=== PATIENT | female | born 1985 ===

== ENCOUNTER 2020-05-16 20:10 | Inpatient (IN) | payer OTHER ==
[2020-05-16] MEDS ORDERED: SODIUM CHLORIDE 0.9% 500 ML INFUS.BAG IV ONE (20:53)
[2020-05-16 21:33] LABS: BASO % 0.3 % (0-2.0); HEMOGLOBIN 8.3 GM/dL (10.7-15.3); MCH 34.4 pg (25.7-33.7); MEAN CELL VOLUME 107.3 fl (80-96); MEAN PLT VOLUME 8.6 fl (7.5-11.1); MONO % 17.3 % (3.8-10.2); NEUT % 73.4 % (42.8-82.8); PLATELET COUNT 197 K/MM3 (134-434); RBC 2.42 M/mm3 (3.60-5.2); RDW 16.4 % (11.6-15.6); WHITE BLOOD COUNT 12.1 K/mm3 (4.0-10.0)
[2020-05-16 21:40] LABS: VENOUS BASE EXCESS -10.2 mmol/L (-2-2); VENOUS O2 SATURATION 66.9 % (70-80); VENOUS PCO2 34.3 mmHg (38-52); VENOUS PH 7.277 (7.310-7.410)
[2020-05-16] MEDS ORDERED: SODIUM CHLORIDE 1,000 ML IV STA ×2 (21:43→22:32)
[2020-05-16 21:55] LABS: INR 3.46 (0.83-1.09); PROTHROMBIN TIME (PATIENT) 41.1 SEC (9.7-13.0)
[2020-05-16 22:00] LABS: CHLORIDE 104 mmol/L (98-107); POTASSIUM 3.5 mmol/L (3.5-5.1); SODIUM 134 mmol/L (136-145)
[2020-05-16 22:03] LABS: ALBUMIN 1.5 g/dl (3.4-5.0); ANION GAP 13 MMOL/L (8-16); BLOOD UREA NITROGEN 44.9 mg/dL (7-18); CALCIUM 7.6 mg/dL (8.5-10.1); CO2 18 mmol/L (21-32); GLUCOSE,RANDOM 145 mg/dL (74-106)
[2020-05-16 22:06] LABS: CREATININE 1.1 mg/dL (0.55-1.3); SGOT/AST 15 U/L (15-37); SGPT/ALT 8 U/L (13-61)
[2020-05-16 22:08] LABS: BILIRUBIN,TOTAL 0.5 mg/dL (0.2-1); TOT PROT 5.5 g/dl (6.4-8.2)
[2020-05-16 22:09] LABS: ALK PHOS 93 U/L (45-117)
[2020-05-16 22:27] LABS: EPI CELLS >36 /uL (0-25.1); HYALINE CASTS 10 /uL (0-3.1); URINE APPEARANCE TURBID; URINE BACTERIA >9,000 /uL (0-1359); URINE BILIRUBIN 1+ (NEGATIVE); URINE COLOR DK YELLOW; URINE GLUCOSE (UA) NEGATIVE (NEGATIVE); URINE KETONE NEGATIVE (NEGATIVE); URINE LEUK ESTERASE 3+ (NEGATIVE); URINE NITRITE POSITIVE (NEGATIVE); URINE PROTEIN 1+ (NEGATIVE); URINE WBC 21675 /uL (0-25.8)
[2020-05-16] MEDS ORDERED: PIPERACILLIN/TAZOB 4.5 GM 4.5 GM in DEXTROSE 5%-WATER 100 ML IVPB ONE (22:31)
[2020-05-16] MEDS ORDERED: PIPERACILLIN/TAZOB 4.5 GM 4.5 GM/100 ML BAG IVPB ONE (22:35)
[2020-05-16 22:38] LABS: URINE RBC 307.9 /uL (0-23.9); YEAST NONE SEEN (NEGATIVE)
[2020-05-16 22:47] LABS: ANISOCYTOSIS 1+; MACROCYTOSIS 2+; PLATELET ESTIMATE NORMAL
[2020-05-17] MEDS: NOREPINEPHRINE D5W PREMIX 16,000 MCG/500 ML BAG IVPB SCH ×2 (01:05→10:30)
[2020-05-17 01:54] LABS: ERYTHROCYTE SEDIMENTATION RATE 117 mm/hr (0-20)
[2020-05-17] MEDS ORDERED: SODIUM CHLORIDE 1,000 ML IV SCH (03:00)
[2020-05-17] MEDS ORDERED: VANCOMYCIN/WATER BAGS 1,250 MG/250 ML BAG IVPB SCH ×2 (03:00→03:15)
[2020-05-17] MEDS ORDERED: VANCOMYCIN 500 MG VIAL (RESTRICTED TO ID ONLY) ONE (04:07)
[2020-05-17] MEDS ORDERED: VANCOMYCIN 1 GRAM (PRE-DOCKED) 1,000 MG/250 ML BAG IVPB ONE (04:08)
[2020-05-17] MEDS ORDERED: PIPERACILLIN/TAZOBACTAM 4.5 GM VIAL IVPB ONE ×2 (05:33→10:20)
[2020-05-17] MEDS ORDERED: DEXTROSE 5%-WATER 100 ML IVPB ONE ×2 (05:34→10:20)
[2020-05-17] MEDS: PIPERACILLIN/TAZOB 4.5 GM 4.5 GM in DEXTROSE 5%-WATER 100 ML IVPB SCH ×2 (05:42→11:34)
[2020-05-17] MEDS ORDERED: VASOPRESSIN 20 UNITS/ML VIAL IV ONE (05:51)
[2020-05-17] MEDS: VASOPRESSIN 40 UNITS in SODIUM CHLORIDE 98 ML IVPB SCH ×2 (06:02→14:07)
[2020-05-17 08:31] LABS: BASO % 0.4 % (0-2.0); HEMATOCRIT 26.9 % (32.4-45.2); HEMOGLOBIN 8.5 GM/dL (10.7-15.3); LYMPH % 11.7 % (8-40); MCH 34.2 pg (25.7-33.7); MCHC 31.4 g/dl (32.0-36.0); MEAN CELL VOLUME 108.8 fl (80-96); MEAN PLT VOLUME 8.4 fl (7.5-11.1); MONO % 15.8 % (3.8-10.2); NEUT % 72.1 % (42.8-82.8); PLATELET COUNT 198 K/MM3 (134-434); RBC 2.47 M/mm3 (3.60-5.2); RDW 16.3 % (11.6-15.6); WHITE BLOOD COUNT 16.7 K/mm3 (4.0-10.0)
[2020-05-17 08:56] LABS: ALBUMIN 1.3 g/dl (3.4-5.0)
[2020-05-17 08:57] LABS: MAGNESIUM 1.8 mg/dL (1.8-2.4)
[2020-05-17 09:00] LABS: CREATININE 0.8 mg/dL (0.55-1.3); PHOSPHOROUS 4.8 mg/dL (2.5-4.9)
[2020-05-17 09:01] LABS: BILIRUBIN,TOTAL 0.5 mg/dL (0.2-1); TOT PROT 4.9 g/dl (6.4-8.2)
[2020-05-17 09:24] LABS: CALCIUM 6.8 mg/dL (8.5-10.1); POTASSIUM 2.8 mmol/L (3.5-5.1)
[2020-05-17] MEDS ORDERED: PNEUMOC 13-VAL CONJ-DIP CRM/PF 0.5 ML DISP.SYRIN IM ONE (10:00)
[2020-05-17] MEDS ORDERED: ENOXAPARIN NA (PORCINE) 40 MG/0.4 ML DISP.SYRIN SQ SCH (10:00)
[2020-05-17] MEDS: levETIRAcetam 500 MG/5 ML INJECTION VIAL IVPB SCH ×2 (10:37→21:37)
[2020-05-17] MEDS: KCL 10 MEQ IVPB 10 MEQ/100 ML INFUS.BAG IVPB SCH ×2 (10:37→11:35)
[2020-05-17] MEDS: ENOXAPARIN NA (PORCINE) 60 MG/0.6 ML DISP.SYRIN SQ SCH ×2 (10:37→21:38)
[2020-05-17] MEDS: MUPIROCIN 2% TOPICAL OINTMENT FOR DECOLONIZATION NS SCH ×2 (10:37→21:37)
[2020-05-17 10:41] LABS: ANISOCYTOSIS 1+; MACROCYTOSIS 1+; PLATELET ESTIMATE NORMAL
[2020-05-17] MEDS ORDERED: PT OWN MED DRAWER 7, Y5N ONE ×2 (10:43→21:23)
[2020-05-17] MEDS: LEVOTHYROXINE SODIUM 100 MCG VIAL IVPUSH SCH (10:44)
[2020-05-17] MEDS ORDERED: PIPERACILLIN/TAZOBACTAM 3.375 GM VIAL IVPB ONE ×2 (13:03→16:03)
[2020-05-17] MEDS ORDERED: DEXTROSE 5%-WATER - 50 ML IVPB ONE ×2 (13:03→16:03)
[2020-05-17] MEDS: PIPERACILLIN/TAZOB 3.375 GM 3.375 GM in DEXTROSE 5%-WATER - 50 ML IVPB SCH ×2 (13:05→18:35)
[2020-05-17] MEDS: FLUDROCORTISONE ACETATE 0.1 MG TABLET (FP) PO SCH (13:41)
[2020-05-17] MEDS: HYDROCORTISONE SOD SUCCINATE 100 MG/2 ML VIAL IVPUSH SCH ×2 (13:43→21:38)
[2020-05-17] MEDS ORDERED: SODIUM CHLORIDE 0.45%/POT 20 MEQ/1,000 ML INFUS.BAG IV SCH (14:00)
[2020-05-17] MEDS ORDERED: LACTATED RINGERS SOLUTION 1,000 ML/1,000 ML INFUS.BAG IV SCH (14:00)
[2020-05-17] MEDS ORDERED: PNEUMOCOCCAL 23 VACCINE 0.5 ML VIAL IM ONE (15:00)
[2020-05-17 15:24] LABS: BLOOD UREA NITROGEN 25.4 mg/dL (7-18)
[2020-05-17 15:27] LABS: CREATININE 0.6 mg/dL (0.55-1.3)
[2020-05-17 15:39] LABS: POTASSIUM 2.9 mmol/L (3.5-5.1)
[2020-05-17] MEDS ORDERED: POTASSIUM CHLORIDE ORAL LIQUID 20 MEQ/15 ML PO ONE (15:40)
[2020-05-17] MEDS: VANCOMYCIN 1 GRAM (PRE-DOCKED) 1,000 MG/250 ML BAG IVPB SCH (17:16)
[2020-05-17 20:17] LABS: BLOOD UREA NITROGEN 21.6 mg/dL (7-18); CALCIUM 7.1 mg/dL (8.5-10.1)
[2020-05-17 20:20] LABS: CREATININE 0.5 mg/dL (0.55-1.3)
[2020-05-17] MEDS: CHLORHEXIDINE GLUCONATE 4% CLEANSER FOR DECOLONIZATION TP SCH (21:37)
[2020-05-18] MEDS: PIPERACILLIN/TAZOB 3.375 GM 3.375 GM in DEXTROSE 5%-WATER - 50 ML IVPB SCH ×3 (02:55→18:11)
[2020-05-18] MEDS ORDERED: DEXTROSE 5%-WATER - 50 ML IVPB ONE ×3 (03:15→17:59)
[2020-05-18] MEDS ORDERED: PIPERACILLIN/TAZOBACTAM 3.375 GM VIAL IVPB ONE ×3 (03:15→17:59)
[2020-05-18] MEDS: VANCOMYCIN 1 GRAM (PRE-DOCKED) 1,000 MG/250 ML BAG IVPB SCH ×2 (05:04→17:51)
[2020-05-18] MEDS: HYDROCORTISONE SOD SUCCINATE 100 MG/2 ML VIAL IVPUSH SCH ×3 (05:22→21:29)
[2020-05-18] MEDS: VASOPRESSIN 40 UNITS in SODIUM CHLORIDE 98 ML IVPB SCH ×2 (07:00)
[2020-05-18] MEDS: NOREPINEPHRINE D5W PREMIX 16,000 MCG/500 ML BAG IVPB SCH (07:00)
[2020-05-18 07:55] LABS: BASO % 0.1 % (0-2.0); HEMATOCRIT 26.8 % (32.4-45.2); HEMOGLOBIN 8.4 GM/dL (10.7-15.3); LYMPH % 7.7 % (8-40); MCH 34.1 pg (25.7-33.7); MCHC 31.2 g/dl (32.0-36.0); MEAN CELL VOLUME 109.3 fl (80-96); MONO % 3.7 % (3.8-10.2); NEUT % 88.5 % (42.8-82.8); PLATELET COUNT 207 K/MM3 (134-434); RBC 2.45 M/mm3 (3.60-5.2); RDW 16.3 % (11.6-15.6); WHITE BLOOD COUNT 16.4 K/mm3 (4.0-10.0)
[2020-05-18 08:23] LABS: POTASSIUM 3.6 mmol/L (3.5-5.1)
[2020-05-18 08:24] LABS: CALCIUM 7.2 mg/dL (8.5-10.1)
[2020-05-18 08:25] LABS: ALBUMIN 1.2 g/dl (3.4-5.0); BLOOD UREA NITROGEN 18.4 mg/dL (7-18); MAGNESIUM 1.7 mg/dL (1.8-2.4)
[2020-05-18 08:28] LABS: CREATININE 0.5 mg/dL (0.55-1.3)
[2020-05-18 08:29] LABS: PHOSPHOROUS 3.2 mg/dL (2.5-4.9)
[2020-05-18 08:30] LABS: BILIRUBIN,TOTAL 0.2 mg/dL (0.2-1); TOT PROT 4.5 g/dl (6.4-8.2)
[2020-05-18] MEDS ORDERED: PT OWN MED DRAWER 7, Y5N ONE ×3 (09:01→23:30)
[2020-05-18] MEDS: LEVOTHYROXINE SODIUM 100 MCG VIAL IVPUSH SCH (09:15)
[2020-05-18] MEDS: levETIRAcetam 500 MG/5 ML INJECTION VIAL IVPB SCH ×2 (09:17→21:28)
[2020-05-18] MEDS: FLUDROCORTISONE ACETATE 0.1 MG TABLET (FP) PO SCH (09:17)
[2020-05-18] MEDS: ENOXAPARIN NA (PORCINE) 60 MG/0.6 ML DISP.SYRIN SQ SCH ×2 (09:17→21:29)
[2020-05-18] MEDS ORDERED: ACETAMINOPHEN 1000 MG/100 ML VIAL (NON FORMULARY) IVPB ONE (10:15)
[2020-05-18] MEDS ORDERED: HYDROmorphone HCl 2 MG/ML VIAL IVPUSH PRN (10:27)
[2020-05-18] MEDS: COLLAGENASE CLOSTRIDIUM HIST. 30 GRAMS TUBE TP SCH (10:42)
[2020-05-18] MEDS: MUPIROCIN 2% TOPICAL OINTMENT FOR DECOLONIZATION NS SCH ×2 (10:50→21:28)
[2020-05-18] MEDS ORDERED: PNEUMOC 13-VAL CONJ-DIP CRM/PF 0.5 ML DISP.SYRIN IM ONE (11:30)
[2020-05-18] MEDS: LACTATED RINGERS SOLUTION 1,000 ML/1,000 ML INFUS.BAG IV SCH ×2 (12:12→20:00)
[2020-05-18] MEDS: VANCOMYCIN 250 MG/5 ML ORAL SOLUTION PO SCH ×2 (13:23→17:57)
[2020-05-18 13:36] LABS: ANISOCYTOSIS 1+; MACROCYTOSIS 1+; PLATELET ESTIMATE NORMAL
[2020-05-18] MEDS: CHLORHEXIDINE GLUCONATE 4% CLEANSER FOR DECOLONIZATION TP SCH (21:28)
[2020-05-18] MEDS ORDERED: QUEtiapine FUMARATE 100 MG TABLET (FP) PO ONE (23:38)
[2020-05-19] MEDS: VANCOMYCIN 250 MG/5 ML ORAL SOLUTION PO SCH ×4 (00:03→17:31)
[2020-05-19] MEDS ORDERED: PIPERACILLIN/TAZOBACTAM 3.375 GM VIAL IVPB ONE ×2 (01:29→10:23)
[2020-05-19] MEDS ORDERED: DEXTROSE 5%-WATER - 50 ML IVPB ONE ×2 (01:30→10:24)
[2020-05-19] MEDS: PIPERACILLIN/TAZOB 3.375 GM 3.375 GM in DEXTROSE 5%-WATER - 50 ML IVPB SCH ×2 (01:32→10:27)
[2020-05-19] MEDS ORDERED: PT OWN MED DRAWER 7, Y5N ONE ×5 (05:39→23:26)
[2020-05-19] MEDS: HYDROCORTISONE SOD SUCCINATE 100 MG/2 ML VIAL IVPUSH SCH ×3 (05:46→21:18)
[2020-05-19] MEDS: VASOPRESSIN 40 UNITS in SODIUM CHLORIDE 98 ML IVPB SCH (05:47)
[2020-05-19 07:25] LABS: HEMATOCRIT 24.7 % (32.4-45.2); HEMOGLOBIN 8.1 GM/dL (10.7-15.3); MCH 34.4 pg (25.7-33.7); MCHC 32.5 g/dl (32.0-36.0); MEAN CELL VOLUME 105.8 fl (80-96); MEAN PLT VOLUME 8.8 fl (7.5-11.1); PLATELET COUNT 130 K/MM3 (134-434); RBC 2.34 M/mm3 (3.60-5.2); RDW 15.6 % (11.6-15.6); WHITE BLOOD COUNT 13.2 K/mm3 (4.0-10.0)
[2020-05-19 07:52] LABS: CALCIUM 7.4 mg/dL (8.5-10.1)
[2020-05-19 07:53] LABS: BLOOD UREA NITROGEN 17.3 mg/dL (7-18); MAGNESIUM 1.6 mg/dL (1.8-2.4)
[2020-05-19 07:56] LABS: CREATININE 0.5 mg/dL (0.55-1.3); PHOSPHOROUS 2.6 mg/dL (2.5-4.9)
[2020-05-19 08:58] LABS: POTASSIUM 2.9 mmol/L (3.5-5.1)
[2020-05-19] MEDS: NOREPINEPHRINE D5W PREMIX 16,000 MCG/500 ML BAG IVPB SCH (10:20)
[2020-05-19] MEDS: FLUDROCORTISONE ACETATE 0.1 MG TABLET (FP) PO SCH (10:27)
[2020-05-19] MEDS: MUPIROCIN 2% TOPICAL OINTMENT FOR DECOLONIZATION NS SCH ×2 (10:27→21:17)
[2020-05-19] MEDS: levETIRAcetam 500 MG/5 ML INJECTION VIAL IVPB SCH (10:28)
[2020-05-19] MEDS: LEVOTHYROXINE SODIUM 100 MCG VIAL IVPUSH SCH (10:28)
[2020-05-19] MEDS: COLLAGENASE CLOSTRIDIUM HIST. 30 GRAMS TUBE TP SCH (10:28)
[2020-05-19] MEDS: ENOXAPARIN NA (PORCINE) 60 MG/0.6 ML DISP.SYRIN SQ SCH (10:28)
[2020-05-19] MEDS ORDERED: POTASSIUM PHOSPHATE 30 MM in DEXTROSE 5%-WATER - 250 ML IVPB ONE (10:30)
[2020-05-19] MEDS: QUEtiapine FUMARATE 100 MG TABLET (FP) PO SCH ×2 (14:17→21:22)
[2020-05-19] MEDS: LACTATED RINGERS SOLUTION 1,000 ML/1,000 ML INFUS.BAG IV SCH (14:18)
[2020-05-19] MEDS ORDERED: DEXTROSE 5%-WATER 100 ML IVPB ONE (17:29)
[2020-05-19] MEDS ORDERED: MEROPENEM 1 GM VIAL (RESTRICTED TO ID) IVPB ONE (17:29)
[2020-05-19] MEDS: MEROPENEM 1 GM in DEXTROSE 5%-WATER 100 ML IVPB SCH (17:30)
[2020-05-19] MEDS: CHLORHEXIDINE GLUCONATE 4% CLEANSER FOR DECOLONIZATION TP SCH (21:17)
[2020-05-19] MEDS: ATORVASTATIN CA 20 MG TABLET (FP) PO SCH (21:17)
[2020-05-19] MEDS: APIXABAN 5 MG TABLET PO SCH (21:17)
[2020-05-19] MEDS: levETIRAcetam 500 MG/5 ML ORAL SOLUTION (UNIT-DOSE CUPS) PO SCH (22:00)
[2020-05-19] MEDS: VALPROATE SODIUM 250 MG/5 ML UNIT DOSE CUP PO SCH (22:00)
[2020-05-20] MEDS ORDERED: MEROPENEM 1 GM VIAL (RESTRICTED TO ID) IVPB ONE ×3 (02:31→16:00)
[2020-05-20] MEDS ORDERED: DEXTROSE 5%-WATER 100 ML IVPB ONE ×3 (02:31→16:00)
[2020-05-20] MEDS: MEROPENEM 1 GM in DEXTROSE 5%-WATER 100 ML IVPB SCH ×3 (02:32→17:55)
[2020-05-20] MEDS: VASOPRESSIN 40 UNITS in SODIUM CHLORIDE 98 ML IVPB SCH (05:37)
[2020-05-20] MEDS: NOREPINEPHRINE D5W PREMIX 16,000 MCG/500 ML BAG IVPB SCH (05:37)
[2020-05-20] MEDS ORDERED: PT OWN MED DRAWER 7, Y5N ONE ×2 (05:40→10:04)
[2020-05-20] MEDS: HYDROCORTISONE SOD SUCCINATE 100 MG/2 ML VIAL IVPUSH SCH ×3 (05:46→21:41)
[2020-05-20] MEDS: VANCOMYCIN 250 MG/5 ML ORAL SOLUTION PO SCH ×5 (06:45→23:00)
[2020-05-20] MEDS: LEVOTHYROXINE NA 75 MCG TABLET (FP) PO SCH (06:45)
[2020-05-20 07:01] LABS: BASO % 0.2 % (0-2.0); HEMATOCRIT 21.4 % (32.4-45.2); LYMPH % 23.6 % (8-40); MCH 34.8 pg (25.7-33.7); MCHC 32.9 g/dl (32.0-36.0); MEAN CELL VOLUME 105.8 fl (80-96); MEAN PLT VOLUME 9.5 fl (7.5-11.1); NEUT % 72.2 % (42.8-82.8); PLATELET COUNT 95 K/MM3 (134-434); RBC 2.02 M/mm3 (3.60-5.2); RDW 15.9 % (11.6-15.6); WHITE BLOOD COUNT 6.4 K/mm3 (4.0-10.0)
[2020-05-20 07:23] LABS: POTASSIUM 3.1 mmol/L (3.5-5.1)
[2020-05-20 07:25] LABS: CALCIUM 7.1 mg/dL (8.5-10.1)
[2020-05-20 07:26] LABS: ALBUMIN 1.3 g/dl (3.4-5.0); BLOOD UREA NITROGEN 14.4 mg/dL (7-18); MAGNESIUM 1.7 mg/dL (1.8-2.4)
[2020-05-20 07:29] LABS: CREATININE 0.6 mg/dL (0.55-1.3)
[2020-05-20 07:30] LABS: PHOSPHOROUS 3.8 mg/dL (2.5-4.9)
[2020-05-20 07:31] LABS: BILIRUBIN,TOTAL 0.2 mg/dL (0.2-1); TOT PROT 4.2 g/dl (6.4-8.2)
[2020-05-20 08:26] LABS: ANISOCYTOSIS 3+; MACROCYTOSIS 2+; PLATELET ESTIMATE DECREASED
[2020-05-20] MEDS: MUPIROCIN 2% TOPICAL OINTMENT FOR DECOLONIZATION NS SCH ×2 (10:05→21:43)
[2020-05-20] MEDS: MULTIVIT-MINERALS ORAL LIQUID PO SCH (10:06)
[2020-05-20] MEDS: APIXABAN 5 MG TABLET PO SCH ×2 (10:07→21:42)
[2020-05-20] MEDS: QUEtiapine FUMARATE 100 MG TABLET (FP) PO SCH ×2 (10:07→21:42)
[2020-05-20] MEDS: FLUDROCORTISONE ACETATE 0.1 MG TABLET (FP) PO SCH (10:07)
[2020-05-20] MEDS: VALPROATE SODIUM 250 MG/5 ML UNIT DOSE CUP PO SCH ×2 (10:07→21:43)
[2020-05-20] MEDS: levETIRAcetam 500 MG/5 ML ORAL SOLUTION (UNIT-DOSE CUPS) PO SCH ×2 (10:08→21:42)
[2020-05-20] MEDS: COLLAGENASE CLOSTRIDIUM HIST. 30 GRAMS TUBE TP SCH (10:12)
[2020-05-20] MEDS: KCL 10 MEQ IVPB 10 MEQ/100 ML INFUS.BAG IVPB SCH ×3 (10:12→12:57)
[2020-05-20] MEDS: LACTATED RINGERS SOLUTION 1,000 ML/1,000 ML INFUS.BAG IV SCH ×2 (13:10)
[2020-05-20] MEDS: PANTOPRAZOLE 40 MG TABLET PO SCH (13:24)
[2020-05-20] MEDS: VALPROATE SODIUM 500 MG/5 ML VIAL IVPB SCH ×2 (19:03→19:04)
[2020-05-20] MEDS: ATORVASTATIN CA 20 MG TABLET (FP) PO SCH (21:42)
[2020-05-20] MEDS: CHLORHEXIDINE GLUCONATE 4% CLEANSER FOR DECOLONIZATION TP SCH (21:43)
[2020-05-21] MEDS ORDERED: MEROPENEM 1 GM VIAL (RESTRICTED TO ID) IVPB ONE ×3 (02:25→17:04)
[2020-05-21] MEDS ORDERED: DEXTROSE 5%-WATER 100 ML IVPB ONE ×3 (02:25→17:04)
[2020-05-21] MEDS: MEROPENEM 1 GM in DEXTROSE 5%-WATER 100 ML IVPB SCH ×3 (02:41→17:06)
[2020-05-21] MEDS: LEVOTHYROXINE NA 75 MCG TABLET (FP) PO SCH (06:21)
[2020-05-21] MEDS: HYDROCORTISONE SOD SUCCINATE 100 MG/2 ML VIAL IVPUSH SCH ×3 (06:21→22:41)
[2020-05-21] MEDS: VANCOMYCIN 250 MG/5 ML ORAL SOLUTION PO SCH ×3 (06:21→17:06)
[2020-05-21 07:46] LABS: BASO % 0.1 % (0-2.0); HEMATOCRIT 23.3 % (32.4-45.2); HEMOGLOBIN 7.7 GM/dL (10.7-15.3); LYMPH % 30.2 % (8-40); MCH 34.4 pg (25.7-33.7); MCHC 32.9 g/dl (32.0-36.0); MEAN CELL VOLUME 104.6 fl (80-96); MONO % 7.3 % (3.8-10.2); NEUT % 62.4 % (42.8-82.8); PLATELET COUNT 108 K/MM3 (134-434); RBC 2.23 M/mm3 (3.60-5.2); RDW 15.8 % (11.6-15.6); WHITE BLOOD COUNT 6.2 K/mm3 (4.0-10.0)
[2020-05-21 07:54] LABS: CALCIUM 7.1 mg/dL (8.5-10.1)
[2020-05-21 07:55] LABS: ALBUMIN 1.4 g/dl (3.4-5.0); BLOOD UREA NITROGEN 10.5 mg/dL (7-18); MAGNESIUM 1.6 mg/dL (1.8-2.4)
[2020-05-21 07:58] LABS: CREATININE 0.4 mg/dL (0.55-1.3)
[2020-05-21 08:00] LABS: BILIRUBIN,TOTAL 0.4 mg/dL (0.2-1); TOT PROT 4.3 g/dl (6.4-8.2)
[2020-05-21] MEDS ORDERED: PT OWN MED DRAWER 7, Y5N ONE ×5 (08:24→23:33)
[2020-05-21 08:44] LABS: POTASSIUM 2.8 mmol/L (3.5-5.1)
[2020-05-21] MEDS ORDERED: POTASSIUM CHLORIDE TABS 20 MEQ TABLET.ER (FP) PO ONE (08:44)
[2020-05-21] MEDS: QUEtiapine FUMARATE 100 MG TABLET (FP) PO SCH ×2 (09:10→21:31)
[2020-05-21] MEDS: PANTOPRAZOLE 40 MG TABLET PO SCH (09:10)
[2020-05-21] MEDS: FLUDROCORTISONE ACETATE 0.1 MG TABLET (FP) PO SCH (09:10)
[2020-05-21] MEDS: MUPIROCIN 2% TOPICAL OINTMENT FOR DECOLONIZATION NS SCH (09:11)
[2020-05-21] MEDS: MULTIVIT-MINERALS ORAL LIQUID PO SCH (09:11)
[2020-05-21] MEDS: APIXABAN 5 MG TABLET PO SCH ×2 (09:11→21:31)
[2020-05-21] MEDS: levETIRAcetam 500 MG/5 ML ORAL SOLUTION (UNIT-DOSE CUPS) PO SCH ×2 (09:12→21:31)
[2020-05-21] MEDS: COLLAGENASE CLOSTRIDIUM HIST. 30 GRAMS TUBE TP SCH (11:23)
[2020-05-21] MEDS: VALPROATE SODIUM 250 MG/5 ML UNIT DOSE CUP PO SCH ×2 (12:37→22:41)
[2020-05-21 12:48] LABS: ANISOCYTOSIS 2+; MACROCYTOSIS 2+; PLATELET ESTIMATE DECREASED
[2020-05-21] MEDS ORDERED: MAGNESIUM 1GM/D5W - 1 GM/100 ML IVPB IVPB ONE (13:30)
[2020-05-21] MEDS: KCL 10 MEQ IVPB 10 MEQ/100 ML INFUS.BAG IVPB SCH ×2 (13:42→14:35)
[2020-05-21] MEDS: ATORVASTATIN CA 20 MG TABLET (FP) PO SCH (21:31)
[2020-05-21] MEDS ORDERED: MUPIROCIN 2% TOPICAL OINTMENT FOR DECOLONIZATION NS SCH (22:00)
[2020-05-21] MEDS ORDERED: CHLORHEXIDINE GLUCONATE 4% CLEANSER FOR DECOLONIZATION TP SCH (22:00)
[2020-05-22] MEDS: VANCOMYCIN 250 MG/5 ML ORAL SOLUTION PO SCH ×4 (00:06→18:06)
[2020-05-22] MEDS ORDERED: MEROPENEM 1 GM VIAL (RESTRICTED TO ID) IVPB ONE ×4 (01:08→17:20)
[2020-05-22] MEDS ORDERED: DEXTROSE 5%-WATER 100 ML IVPB ONE ×4 (01:08→17:20)
[2020-05-22] MEDS: MEROPENEM 1 GM in DEXTROSE 5%-WATER 100 ML IVPB SCH ×3 (01:12→18:05)
[2020-05-22] MEDS: HYDROCORTISONE SOD SUCCINATE 100 MG/2 ML VIAL IVPUSH SCH ×3 (05:24→21:39)
[2020-05-22] MEDS: LEVOTHYROXINE NA 75 MCG TABLET (FP) PO SCH (06:11)
[2020-05-22] MEDS ORDERED: PT OWN MED DRAWER 7, Y5N ONE ×4 (10:12→15:16)
[2020-05-22] MEDS: QUEtiapine FUMARATE 100 MG TABLET (FP) PO SCH ×2 (11:12→21:37)
[2020-05-22] MEDS: APIXABAN 5 MG TABLET PO SCH ×2 (11:12→21:38)
[2020-05-22] MEDS: PANTOPRAZOLE 40 MG TABLET PO SCH (11:12)
[2020-05-22] MEDS: levETIRAcetam 500 MG/5 ML ORAL SOLUTION (UNIT-DOSE CUPS) PO SCH ×2 (11:12→21:38)
[2020-05-22] MEDS: FLUDROCORTISONE ACETATE 0.1 MG TABLET (FP) PO SCH (11:14)
[2020-05-22] MEDS: VALPROATE SODIUM 250 MG/5 ML UNIT DOSE CUP PO SCH ×2 (11:14→21:39)
[2020-05-22] MEDS: NYSTATIN 100,000 UNIT/GM TOPICAL CREAM 15 GM TUBE TP SCH ×2 (15:07→21:39)
[2020-05-22] MEDS: COLLAGENASE CLOSTRIDIUM HIST. 30 GRAMS TUBE TP SCH (15:07)
[2020-05-22] MEDS: MULTIVIT-MINERALS ORAL LIQUID PO SCH (15:21)
[2020-05-22 16:55] LABS: POTASSIUM 3.2 mmol/L (3.5-5.1)
[2020-05-22 16:56] LABS: CALCIUM 7.3 mg/dL (8.5-10.1)
[2020-05-22 17:00] LABS: CREATININE 0.4 mg/dL (0.55-1.3)
[2020-05-22] MEDS: ATORVASTATIN CA 20 MG TABLET (FP) PO SCH (21:38)
[2020-05-23] MEDS ORDERED: MEROPENEM 1 GM VIAL (RESTRICTED TO ID) IVPB ONE ×3 (01:11→17:19)
[2020-05-23] MEDS ORDERED: DEXTROSE 5%-WATER 100 ML IVPB ONE ×3 (01:11→17:20)
[2020-05-23] MEDS ORDERED: PT OWN MED DRAWER 7, Y5N ONE ×3 (01:11→11:27)
[2020-05-23] MEDS: MEROPENEM 1 GM in DEXTROSE 5%-WATER 100 ML IVPB SCH ×3 (01:13→17:28)
[2020-05-23] MEDS: VANCOMYCIN 250 MG/5 ML ORAL SOLUTION PO SCH ×5 (01:13→23:16)
[2020-05-23] MEDS: HYDROCORTISONE SOD SUCCINATE 100 MG/2 ML VIAL IVPUSH SCH ×2 (06:18→17:13)
[2020-05-23] MEDS: LEVOTHYROXINE NA 75 MCG TABLET (FP) PO SCH (06:19)
[2020-05-23 07:03] LABS: POTASSIUM 3.1 mmol/L (3.5-5.1)
[2020-05-23 07:06] LABS: CALCIUM 7.4 mg/dL (8.5-10.1)
[2020-05-23] MEDS ORDERED: INSULIN (NOVOLOG) ASPART 100 UNITS/ML 10ML VIAL ONE (07:08)
[2020-05-23 07:10] LABS: CREATININE 0.4 mg/dL (0.55-1.3)
[2020-05-23] MEDS ORDERED: POTASSIUM CHLORIDE TABS 20 MEQ TABLET.ER (FP) PO ONE (11:15)
[2020-05-23] MEDS: PANTOPRAZOLE 40 MG TABLET PO SCH (11:35)
[2020-05-23] MEDS: QUEtiapine FUMARATE 100 MG TABLET (FP) PO SCH ×2 (11:35→22:12)
[2020-05-23] MEDS: APIXABAN 5 MG TABLET PO SCH ×2 (11:35→22:12)
[2020-05-23 11:36] LABS: HEMATOCRIT 23.9 % (32.4-45.2); HEMOGLOBIN 7.7 GM/dL (10.7-15.3); MCH 34.9 pg (25.7-33.7); MCHC 32.1 g/dl (32.0-36.0); MEAN CELL VOLUME 108.9 fl (80-96); MEAN PLT VOLUME 8.5 fl (7.5-11.1); PLATELET COUNT 185 K/MM3 (134-434); RBC 2.19 M/mm3 (3.60-5.2); RDW 15.9 % (11.6-15.6); WHITE BLOOD COUNT 9.3 K/mm3 (4.0-10.0)
[2020-05-23] MEDS: VALPROATE SODIUM 250 MG/5 ML UNIT DOSE CUP PO SCH ×2 (11:36→22:12)
[2020-05-23] MEDS: levETIRAcetam 500 MG/5 ML ORAL SOLUTION (UNIT-DOSE CUPS) PO SCH ×2 (11:36→22:12)
[2020-05-23] MEDS: MULTIVIT-MINERALS ORAL LIQUID PO SCH (11:37)
[2020-05-23] MEDS: FLUDROCORTISONE ACETATE 0.1 MG TABLET (FP) PO SCH (11:39)
[2020-05-23] MEDS: NYSTATIN 100,000 UNIT/GM TOPICAL CREAM 15 GM TUBE TP SCH ×2 (11:40→22:13)
[2020-05-23] MEDS: COLLAGENASE CLOSTRIDIUM HIST. 30 GRAMS TUBE TP SCH (11:40)
[2020-05-23] MEDS: AMINO ACIDS/PROTEIN HYDROLYS 30 ML LIQUID.PKT PO SCH (17:08)
[2020-05-23] MEDS: ATORVASTATIN CA 20 MG TABLET (FP) PO SCH (22:12)
[2020-05-24] MEDS: VANCOMYCIN 250 MG/5 ML ORAL SOLUTION PO SCH ×4 (06:17→23:20)
[2020-05-24] MEDS: HYDROCORTISONE SOD SUCCINATE 100 MG/2 ML VIAL IVPUSH SCH (06:18)
[2020-05-24] MEDS: LEVOTHYROXINE NA 75 MCG TABLET (FP) PO SCH (06:18)
[2020-05-24] MEDS ORDERED: PT OWN MED DRAWER 7, Y5N ONE ×3 (09:42→22:17)
[2020-05-24] MEDS: AMINO ACIDS/PROTEIN HYDROLYS 30 ML LIQUID.PKT PO SCH ×2 (09:53→17:53)
[2020-05-24] MEDS: VALPROATE SODIUM 250 MG/5 ML UNIT DOSE CUP PO SCH ×2 (09:54→21:40)
[2020-05-24] MEDS: MULTIVIT-MINERALS ORAL LIQUID PO SCH (09:54)
[2020-05-24] MEDS: APIXABAN 5 MG TABLET PO SCH ×2 (09:54→21:40)
[2020-05-24] MEDS: FLUDROCORTISONE ACETATE 0.1 MG TABLET (FP) PO SCH (09:55)
[2020-05-24] MEDS: levETIRAcetam 500 MG/5 ML ORAL SOLUTION (UNIT-DOSE CUPS) PO SCH ×2 (09:56→21:40)
[2020-05-24] MEDS: QUEtiapine FUMARATE 100 MG TABLET (FP) PO SCH ×2 (09:56→23:18)
[2020-05-24] MEDS: PANTOPRAZOLE 40 MG TABLET PO SCH (09:56)
[2020-05-24] MEDS: NYSTATIN 100,000 UNIT/GM TOPICAL CREAM 15 GM TUBE TP SCH ×2 (12:33→21:42)
[2020-05-24] MEDS: COLLAGENASE CLOSTRIDIUM HIST. 30 GRAMS TUBE TP SCH (18:02)
[2020-05-24] MEDS: ATORVASTATIN CA 20 MG TABLET (FP) PO SCH (21:40)
[2020-05-25] MEDS: LEVOTHYROXINE NA 75 MCG TABLET (FP) PO SCH (05:59)
[2020-05-25] MEDS: VANCOMYCIN 250 MG/5 ML ORAL SOLUTION PO SCH ×4 (06:00→22:59)
[2020-05-25] MEDS: PANTOPRAZOLE 40 MG TABLET PO SCH (10:12)
[2020-05-25] MEDS: QUEtiapine FUMARATE 100 MG TABLET (FP) PO SCH ×2 (10:12→22:59)
[2020-05-25] MEDS: AMINO ACIDS/PROTEIN HYDROLYS 30 ML LIQUID.PKT PO SCH ×2 (10:12→16:32)
[2020-05-25] MEDS: levETIRAcetam 500 MG/5 ML ORAL SOLUTION (UNIT-DOSE CUPS) PO SCH ×2 (10:12→21:23)
[2020-05-25] MEDS: VALPROATE SODIUM 250 MG/5 ML UNIT DOSE CUP PO SCH ×2 (10:13→21:23)
[2020-05-25] MEDS: APIXABAN 5 MG TABLET PO SCH ×2 (10:13→21:23)
[2020-05-25] MEDS: MULTIVIT-MINERALS ORAL LIQUID PO SCH (10:13)
[2020-05-25] MEDS: HYDROCORTISONE SOD SUCCINATE 100 MG/2 ML VIAL IVPUSH SCH (10:14)
[2020-05-25] MEDS: NYSTATIN 100,000 UNIT/GM TOPICAL CREAM 15 GM TUBE TP SCH ×2 (10:15→21:23)
[2020-05-25] MEDS: FLUDROCORTISONE ACETATE 0.1 MG TABLET (FP) PO SCH (10:15)
[2020-05-25] MEDS: COLLAGENASE CLOSTRIDIUM HIST. 30 GRAMS TUBE TP SCH (12:45)
[2020-05-25] MEDS ORDERED: PT OWN MED DRAWER 7, Y5N ONE (21:19)
[2020-05-25] MEDS: ATORVASTATIN CA 20 MG TABLET (FP) PO SCH (21:23)
[2020-05-26] MEDS: LEVOTHYROXINE NA 75 MCG TABLET (FP) PO SCH (06:22)
[2020-05-26] MEDS: VANCOMYCIN 250 MG/5 ML ORAL SOLUTION PO SCH ×4 (06:22→23:00)
[2020-05-26 07:26] LABS: BASO % 0.1 % (0-2.0); EOS % 1.3 % (0-4.5); HEMATOCRIT 23.1 % (32.4-45.2); HEMOGLOBIN 7.6 GM/dL (10.7-15.3); LYMPH % 44.1 % (8-40); MCH 35.3 pg (25.7-33.7); MCHC 33.1 g/dl (32.0-36.0); MEAN CELL VOLUME 106.6 fl (80-96); MEAN PLT VOLUME 7.8 fl (7.5-11.1); MONO % 12.3 % (3.8-10.2); NEUT % 42.2 % (42.8-82.8); PLATELET COUNT 224 K/MM3 (134-434); RBC 2.17 M/mm3 (3.60-5.2); RDW 16.1 % (11.6-15.6); WHITE BLOOD COUNT 8.8 K/mm3 (4.0-10.0)
[2020-05-26 07:48] LABS: CALCIUM 7.3 mg/dL (8.5-10.1)
[2020-05-26 07:49] LABS: ALBUMIN 1.7 g/dl (3.4-5.0); BLOOD UREA NITROGEN 7.9 mg/dL (7-18)
[2020-05-26 07:52] LABS: CREATININE 0.2 mg/dL (0.55-1.3)
[2020-05-26 07:54] LABS: BILIRUBIN,TOTAL 0.4 mg/dL (0.2-1); TOT PROT 4.7 g/dl (6.4-8.2)
[2020-05-26 08:01] LABS: POTASSIUM 2.8 mmol/L (3.5-5.1)
[2020-05-26] MEDS ORDERED: POTASSIUM CHLORIDE ORAL LIQUID 20 MEQ/15 ML PO ONE (09:30)
[2020-05-26] MEDS ORDERED: PT OWN MED DRAWER 7, Y5N ONE (10:23)
[2020-05-26] MEDS: KCL 10 MEQ IVPB 10 MEQ/100 ML INFUS.BAG IVPB SCH ×3 (10:32→12:59)
[2020-05-26] MEDS: AMINO ACIDS/PROTEIN HYDROLYS 30 ML LIQUID.PKT PO SCH ×2 (10:33→17:09)
[2020-05-26 10:36] LABS: ANISOCYTOSIS 2+; MACROCYTOSIS 2+
[2020-05-26] MEDS: MULTIVIT-MINERALS ORAL LIQUID PO SCH (10:39)
[2020-05-26] MEDS: PANTOPRAZOLE 40 MG TABLET PO SCH (10:39)
[2020-05-26] MEDS: VALPROATE SODIUM 250 MG/5 ML UNIT DOSE CUP PO SCH ×2 (10:39→22:22)
[2020-05-26] MEDS: APIXABAN 5 MG TABLET PO SCH ×2 (10:39→22:22)
[2020-05-26] MEDS: FLUDROCORTISONE ACETATE 0.1 MG TABLET (FP) PO SCH (10:40)
[2020-05-26] MEDS: NYSTATIN 100,000 UNIT/GM TOPICAL CREAM 15 GM TUBE TP SCH ×2 (10:41→22:22)
[2020-05-26] MEDS: COLLAGENASE CLOSTRIDIUM HIST. 30 GRAMS TUBE TP SCH (10:41)
[2020-05-26] MEDS: levETIRAcetam 500 MG/5 ML ORAL SOLUTION (UNIT-DOSE CUPS) PO SCH ×2 (10:41→22:22)
[2020-05-26] MEDS: HYDROCORTISONE SOD SUCCINATE 100 MG/2 ML VIAL IVPUSH SCH (10:42)
[2020-05-26] MEDS: QUEtiapine FUMARATE 100 MG TABLET (FP) PO SCH ×2 (11:52→22:22)
[2020-05-26] MEDS: ATORVASTATIN CA 20 MG TABLET (FP) PO SCH (22:22)
[2020-05-27] MEDS: LEVOTHYROXINE NA 75 MCG TABLET (FP) PO SCH (06:17)
[2020-05-27] MEDS: VANCOMYCIN 250 MG/5 ML ORAL SOLUTION PO SCH ×4 (06:17→23:44)
[2020-05-27 07:11] LABS: BASO % 0.1 % (0-2.0); EOS % 2.5 % (0-4.5); HEMATOCRIT 21.7 % (32.4-45.2); LYMPH % 33.1 % (8-40); MCH 35.1 pg (25.7-33.7); MCHC 32.5 g/dl (32.0-36.0); MEAN PLT VOLUME 8.3 fl (7.5-11.1); MONO % 8.5 % (3.8-10.2); NEUT % 55.8 % (42.8-82.8); PLATELET COUNT 185 K/MM3 (134-434); RBC 2.01 M/mm3 (3.60-5.2); WHITE BLOOD COUNT 9.1 K/mm3 (4.0-10.0)
[2020-05-27] MEDS: AMINO ACIDS/PROTEIN HYDROLYS 30 ML LIQUID.PKT PO SCH ×2 (08:05→18:22)
[2020-05-27 10:09] LABS: ALBUMIN 1.7 g/dl (3.4-5.0); BILIRUBIN,TOTAL 0.2 mg/dL (0.2-1); BLOOD UREA NITROGEN 7.8 mg/dL (7-18); CALCIUM 7.5 mg/dL (8.5-10.1); CREATININE 0.3 mg/dL (0.55-1.3); POTASSIUM 3.2 mmol/L (3.5-5.1); TOT PROT 4.6 g/dl (6.4-8.2)
[2020-05-27] MEDS ORDERED: PT OWN MED DRAWER 7, Y5N ONE ×2 (10:17→12:47)
[2020-05-27] MEDS: FLUDROCORTISONE ACETATE 0.1 MG TABLET (FP) PO SCH (10:18)
[2020-05-27] MEDS: QUEtiapine FUMARATE 100 MG TABLET (FP) PO SCH ×2 (10:18→22:32)
[2020-05-27] MEDS: MULTIVIT-MINERALS ORAL LIQUID PO SCH (10:18)
[2020-05-27] MEDS: VALPROATE SODIUM 250 MG/5 ML UNIT DOSE CUP PO SCH ×2 (10:18→22:32)
[2020-05-27] MEDS: APIXABAN 5 MG TABLET PO SCH ×2 (10:19→22:31)
[2020-05-27] MEDS: PANTOPRAZOLE 40 MG TABLET PO SCH (10:19)
[2020-05-27] MEDS: levETIRAcetam 500 MG/5 ML ORAL SOLUTION (UNIT-DOSE CUPS) PO SCH ×2 (10:19→22:31)
[2020-05-27] MEDS ORDERED: POTASSIUM CHLORIDE ORAL LIQUID 20 MEQ/15 ML PO ONE (10:21)
[2020-05-27] MEDS: NYSTATIN 100,000 UNIT/GM TOPICAL CREAM 15 GM TUBE TP SCH ×2 (10:26→22:33)
[2020-05-27] MEDS: COLLAGENASE CLOSTRIDIUM HIST. 30 GRAMS TUBE TP SCH (10:27)
[2020-05-27] MEDS ORDERED: HYDROCORTISONE SOD SUCCINATE 100 MG/2 ML VIAL IVPUSH SCH ×2 (11:13→11:18)
[2020-05-27] MEDS: HYDROCORTISONE SOD SUCCINATE 100 MG/2 ML VIAL IVPUSH SCH ×2 (11:18→12:49)
[2020-05-27] MEDS: ACETAMINOPHEN 325 MG TABLET (FP) PO PRN (16:35)
[2020-05-27] MEDS ORDERED: FUROSEMIDE 40 MG/4 ML INJECTABLE VIAL IVPUSH ONE (17:00)
[2020-05-27] MEDS: ATORVASTATIN CA 20 MG TABLET (FP) PO SCH (22:32)
[2020-05-28] MEDS: VANCOMYCIN 250 MG/5 ML ORAL SOLUTION PO SCH ×3 (05:18→17:32)
[2020-05-28] MEDS: LEVOTHYROXINE NA 75 MCG TABLET (FP) PO SCH (06:11)
[2020-05-28] MEDS: AMINO ACIDS/PROTEIN HYDROLYS 30 ML LIQUID.PKT PO SCH ×2 (08:30→17:32)
[2020-05-28] MEDS: ACETAMINOPHEN 325 MG TABLET (FP) PO PRN (08:59)
[2020-05-28 09:15] LABS: BASO % 0.3 % (0-2.0); EOS % 1.7 % (0-4.5); HEMATOCRIT 26.8 % (32.4-45.2); HEMOGLOBIN 9.2 GM/dL (10.7-15.3); LYMPH % 30.4 % (8-40); MCH 34.4 pg (25.7-33.7); MCHC 34.3 g/dl (32.0-36.0); MEAN CELL VOLUME 100.3 fl (80-96); MEAN PLT VOLUME 8.3 fl (7.5-11.1); MONO % 7.8 % (3.8-10.2); NEUT % 59.8 % (42.8-82.8); PLATELET COUNT 173 K/MM3 (134-434); RBC 2.67 M/mm3 (3.60-5.2); RDW 20.3 % (11.6-15.6); WHITE BLOOD COUNT 8.3 K/mm3 (4.0-10.0)
[2020-05-28 09:31] LABS: POTASSIUM 3.4 mmol/L (3.5-5.1)
[2020-05-28 10:06] LABS: CALCIUM 7.7 mg/dL (8.5-10.1)
[2020-05-28 10:07] LABS: ALBUMIN 1.7 g/dl (3.4-5.0); BLOOD UREA NITROGEN 10.2 mg/dL (7-18)
[2020-05-28 10:10] LABS: CREATININE 0.2 mg/dL (0.55-1.3)
[2020-05-28 10:11] LABS: BILIRUBIN,TOTAL 0.4 mg/dL (0.2-1); TOT PROT 4.9 g/dl (6.4-8.2)
[2020-05-28] MEDS ORDERED: POTASSIUM CHLORIDE ORAL LIQUID 20 MEQ/15 ML PO ONE (11:02)
[2020-05-28] MEDS ORDERED: PT OWN MED DRAWER 7, Y5N ONE ×2 (11:05→20:37)
[2020-05-28] MEDS ORDERED: INSULIN (NOVOLOG) ASPART 100 UNITS/ML 10ML VIAL ONE (11:05)
[2020-05-28] MEDS: MULTIVIT-MINERALS ORAL LIQUID PO SCH (11:08)
[2020-05-28] MEDS: levETIRAcetam 500 MG/5 ML ORAL SOLUTION (UNIT-DOSE CUPS) PO SCH ×2 (11:09→21:19)
[2020-05-28] MEDS: VALPROATE SODIUM 250 MG/5 ML UNIT DOSE CUP PO SCH ×2 (11:09→21:19)
[2020-05-28] MEDS: APIXABAN 5 MG TABLET PO SCH ×2 (11:09→21:19)
[2020-05-28] MEDS: QUEtiapine FUMARATE 100 MG TABLET (FP) PO SCH ×2 (11:10→21:19)
[2020-05-28] MEDS: HYDROCORTISONE SOD SUCCINATE 100 MG/2 ML VIAL IVPUSH SCH (11:10)
[2020-05-28] MEDS: PANTOPRAZOLE 40 MG TABLET PO SCH (11:10)
[2020-05-28] MEDS: NYSTATIN 100,000 UNIT/GM TOPICAL CREAM 15 GM TUBE TP SCH ×2 (11:12→21:23)
[2020-05-28] MEDS: COLLAGENASE CLOSTRIDIUM HIST. 30 GRAMS TUBE TP SCH (13:53)
[2020-05-28] MEDS: ATORVASTATIN CA 20 MG TABLET (FP) PO SCH (21:19)
[2020-05-29] MEDS: ACETAMINOPHEN 325 MG TABLET (FP) PO PRN ×2 (05:25→21:35)
[2020-05-29] MEDS: LEVOTHYROXINE NA 75 MCG TABLET (FP) PO SCH (06:04)
[2020-05-29] MEDS ORDERED: PT OWN MED DRAWER 7, Y5N ONE ×2 (11:11→20:15)
[2020-05-29] MEDS: QUEtiapine FUMARATE 100 MG TABLET (FP) PO SCH ×3 (11:29→21:38)
[2020-05-29] MEDS: MULTIVIT-MINERALS ORAL LIQUID PO SCH (11:29)
[2020-05-29] MEDS: levETIRAcetam 500 MG/5 ML ORAL SOLUTION (UNIT-DOSE CUPS) PO SCH (11:29)
[2020-05-29] MEDS: AMINO ACIDS/PROTEIN HYDROLYS 30 ML LIQUID.PKT PO SCH ×2 (11:29→17:42)
[2020-05-29] MEDS: VALPROATE SODIUM 250 MG/5 ML UNIT DOSE CUP PO SCH ×2 (11:29→21:38)
[2020-05-29] MEDS: NYSTATIN 100,000 UNIT/GM TOPICAL CREAM 15 GM TUBE TP SCH ×2 (11:30→22:42)
[2020-05-29] MEDS: APIXABAN 5 MG TABLET PO SCH ×2 (11:30→21:38)
[2020-05-29] MEDS: COLLAGENASE CLOSTRIDIUM HIST. 30 GRAMS TUBE TP SCH (11:30)
[2020-05-29] MEDS: PANTOPRAZOLE 40 MG TABLET PO SCH (11:30)
[2020-05-29] MEDS: ATORVASTATIN CA 20 MG TABLET (FP) PO SCH (21:38)
[2020-05-29] MEDS: levETIRAcetam 500 MG TABLET (FP) PO SCH (21:38)
[2020-05-29] MEDS ORDERED: VANCOMYCIN 1 GM in D5W (PRE-DOCKED) 1,000 MG/250 ML IVPB ONE (23:18)
[2020-05-29] MEDS ORDERED: VANCOMYCIN 1 GRAM (PRE-DOCKED) 1,000 MG/250 ML BAG IVPB ONE (23:45)
[2020-05-30 00:39] LABS: BASO % 0.3 % (0-2.0); EOS % 0.4 % (0-4.5); HEMATOCRIT 25.8 % (32.4-45.2); HEMOGLOBIN 8.5 GM/dL (10.7-15.3); LYMPH % 31.2 % (8-40); MCH 33.9 pg (25.7-33.7); MEAN CELL VOLUME 102.8 fl (80-96); MEAN PLT VOLUME 8.9 fl (7.5-11.1); MONO % 5.2 % (3.8-10.2); NEUT % 62.9 % (42.8-82.8); PLATELET COUNT 127 K/MM3 (134-434); RBC 2.51 M/mm3 (3.60-5.2); WHITE BLOOD COUNT 6.2 K/mm3 (4.0-10.0)
[2020-05-30] MEDS: LEVOTHYROXINE NA 75 MCG TABLET (FP) PO SCH (06:05)
[2020-05-30 08:24] LABS: HEMATOCRIT 27.5 % (32.4-45.2); HEMOGLOBIN 9.1 GM/dL (10.7-15.3); MCH 34.4 pg (25.7-33.7); MCHC 33.3 g/dl (32.0-36.0); MEAN CELL VOLUME 103.3 fl (80-96); PLATELET COUNT 128 K/MM3 (134-434); RBC 2.66 M/mm3 (3.60-5.2); RDW 21.8 % (11.6-15.6); WHITE BLOOD COUNT 6.2 K/mm3 (4.0-10.0)
[2020-05-30 09:32] LABS: BLOOD UREA NITROGEN 11.7 mg/dL (7-18); CALCIUM 7.6 mg/dL (8.5-10.1); CREATININE 0.3 mg/dL (0.55-1.3); POTASSIUM 3.6 mmol/L (3.5-5.1)
[2020-05-30] MEDS ORDERED: PT OWN MED DRAWER 7, Y5N ONE ×3 (10:07→22:30)
[2020-05-30] MEDS: AMINO ACIDS/PROTEIN HYDROLYS 30 ML LIQUID.PKT PO SCH ×3 (10:45→16:31)
[2020-05-30] MEDS: levETIRAcetam 500 MG TABLET (FP) PO SCH ×2 (10:46→22:28)
[2020-05-30] MEDS: PANTOPRAZOLE 40 MG TABLET PO SCH (10:46)
[2020-05-30] MEDS: VALPROATE SODIUM 250 MG/5 ML UNIT DOSE CUP PO SCH ×2 (10:46→22:28)
[2020-05-30] MEDS: APIXABAN 5 MG TABLET PO SCH ×2 (10:46→22:28)
[2020-05-30] MEDS: MULTIVITAMINS (DAILY MVI) TABLET (FP) PO SCH (10:46)
[2020-05-30] MEDS: QUEtiapine FUMARATE 100 MG TABLET (FP) PO SCH ×2 (10:46→22:28)
[2020-05-30] MEDS: NYSTATIN 100,000 UNIT/GM TOPICAL CREAM 15 GM TUBE TP SCH ×2 (10:47→22:41)
[2020-05-30 11:13] LABS: EPI CELLS >36 /uL (0-25.1); HYALINE CASTS 1 /uL (0-3.1); URINE APPEARANCE CLEAR; URINE BACTERIA 145 /uL (0-1359); URINE BILIRUBIN NEGATIVE (NEGATIVE); URINE COLOR YELLOW; URINE GLUCOSE (UA) NEGATIVE (NEGATIVE); URINE KETONE NEGATIVE (NEGATIVE); URINE LEUK ESTERASE 3+ (NEGATIVE); URINE NITRITE NEGATIVE (NEGATIVE); URINE PROTEIN NEGATIVE (NEGATIVE); URINE RBC 6 /uL (0-23.9); URINE UROBILINOGEN 0.2 mg/dL (0.2-1.0); URINE WBC 81 /uL (0-25.8)
[2020-05-30 14:05] LABS: ANISOCYTOSIS 1+; MACROCYTOSIS 1+
[2020-05-30] MEDS: ACETAMINOPHEN 325 MG TABLET (FP) PO PRN (14:08)
[2020-05-30] MEDS: COLLAGENASE CLOSTRIDIUM HIST. 30 GRAMS TUBE TP SCH (14:08)
[2020-05-30] MEDS: ATORVASTATIN CA 20 MG TABLET (FP) PO SCH (22:28)
[2020-05-31] MEDS: LEVOTHYROXINE NA 75 MCG TABLET (FP) PO SCH (06:33)
[2020-05-31] MEDS: AMINO ACIDS/PROTEIN HYDROLYS 30 ML LIQUID.PKT PO SCH ×3 (10:38→16:48)
[2020-05-31] MEDS: VALPROATE SODIUM 250 MG/5 ML UNIT DOSE CUP PO SCH ×2 (10:38→21:55)
[2020-05-31] MEDS: PANTOPRAZOLE 40 MG TABLET PO SCH (10:39)
[2020-05-31] MEDS: APIXABAN 5 MG TABLET PO SCH ×2 (10:39→21:55)
[2020-05-31] MEDS: QUEtiapine FUMARATE 100 MG TABLET (FP) PO SCH ×2 (10:39→21:55)
[2020-05-31] MEDS: NYSTATIN 100,000 UNIT/GM TOPICAL CREAM 15 GM TUBE TP SCH ×2 (10:39→21:56)
[2020-05-31] MEDS: MULTIVITAMINS (DAILY MVI) TABLET (FP) PO SCH (10:39)
[2020-05-31] MEDS: levETIRAcetam 500 MG TABLET (FP) PO SCH ×2 (10:39→21:55)
[2020-05-31] MEDS: COLLAGENASE CLOSTRIDIUM HIST. 30 GRAMS TUBE TP SCH (16:47)
[2020-05-31] MEDS: ERTAPENEM SODIUM 1 GM in SODIUM CHLORIDE 50 ML IVPB SCH (18:46)
[2020-05-31] MEDS: ACETAMINOPHEN 325 MG TABLET (FP) PO PRN (19:45)
[2020-05-31] MEDS ORDERED: PT OWN MED DRAWER 7, Y5N ONE (21:49)
[2020-05-31] MEDS: ATORVASTATIN CA 20 MG TABLET (FP) PO SCH (21:55)
[2020-06-01] MEDS: LEVOTHYROXINE NA 75 MCG TABLET (FP) PO SCH (06:45)
[2020-06-01] MEDS ORDERED: PT OWN MED DRAWER 7, Y5N ONE ×2 (10:45→21:38)
[2020-06-01] MEDS: levETIRAcetam 500 MG TABLET (FP) PO SCH ×2 (10:48→21:40)
[2020-06-01] MEDS: QUEtiapine FUMARATE 100 MG TABLET (FP) PO SCH ×2 (10:48→21:41)
[2020-06-01] MEDS: ERTAPENEM SODIUM 1 GM in SODIUM CHLORIDE 50 ML IVPB SCH (10:48)
[2020-06-01] MEDS: MULTIVITAMINS (DAILY MVI) TABLET (FP) PO SCH (10:48)
[2020-06-01] MEDS: VALPROATE SODIUM 250 MG/5 ML UNIT DOSE CUP PO SCH ×2 (10:48→21:41)
[2020-06-01] MEDS: APIXABAN 5 MG TABLET PO SCH ×2 (10:48→21:41)
[2020-06-01] MEDS: PANTOPRAZOLE 40 MG TABLET PO SCH (10:48)
[2020-06-01] MEDS: NYSTATIN 100,000 UNIT/GM TOPICAL CREAM 15 GM TUBE TP SCH ×2 (10:49→22:00)
[2020-06-01] MEDS: COLLAGENASE CLOSTRIDIUM HIST. 30 GRAMS TUBE TP SCH (10:49)
[2020-06-01] MEDS: AMINO ACIDS/PROTEIN HYDROLYS 30 ML LIQUID.PKT PO SCH ×3 (10:49→17:29)
[2020-06-01 20:57] LABS: HEMATOCRIT 27.1 % (32.4-45.2); HEMOGLOBIN 8.9 GM/dL (10.7-15.3); MCHC 32.9 g/dl (32.0-36.0); MEAN CELL VOLUME 103.3 fl (80-96); MEAN PLT VOLUME 10.1 fl (7.5-11.1); PLATELET COUNT 129 K/MM3 (134-434); RBC 2.62 M/mm3 (3.60-5.2); RDW 19.9 % (11.6-15.6); WHITE BLOOD COUNT 4.6 K/mm3 (4.0-10.0)
[2020-06-01 21:21] LABS: POTASSIUM 4.7 mmol/L (3.5-5.1)
[2020-06-01 21:23] LABS: CALCIUM 7.9 mg/dL (8.5-10.1)
[2020-06-01 21:24] LABS: BLOOD UREA NITROGEN 16.6 mg/dL (7-18)
[2020-06-01 21:27] LABS: CREATININE 0.3 mg/dL (0.55-1.3)
[2020-06-01 21:29] LABS: BILIRUBIN,TOTAL 0.3 mg/dL (0.2-1); TOT PROT 5.9 g/dl (6.4-8.2)
[2020-06-01] MEDS: ATORVASTATIN CA 20 MG TABLET (FP) PO SCH (21:40)
[2020-06-01] MEDS: MINERAL OIL/PET HY-PHL TOPICAL OINTMENT 454 GM JAR TP SCH (21:41)
[2020-06-02] MEDS: LEVOTHYROXINE NA 75 MCG TABLET (FP) PO SCH (06:25)
[2020-06-02] MEDS: levETIRAcetam 500 MG TABLET (FP) PO SCH ×2 (10:19→21:34)
[2020-06-02] MEDS: AMINO ACIDS/PROTEIN HYDROLYS 30 ML LIQUID.PKT PO SCH ×3 (10:19→17:33)
[2020-06-02] MEDS: VALPROATE SODIUM 250 MG/5 ML UNIT DOSE CUP PO SCH ×2 (10:19→22:57)
[2020-06-02] MEDS: PANTOPRAZOLE 40 MG TABLET PO SCH (10:19)
[2020-06-02] MEDS: ERTAPENEM SODIUM 1 GM in SODIUM CHLORIDE 50 ML IVPB SCH (10:19)
[2020-06-02] MEDS: MULTIVITAMINS (DAILY MVI) TABLET (FP) PO SCH (10:19)
[2020-06-02] MEDS: APIXABAN 5 MG TABLET PO SCH ×2 (10:19→21:34)
[2020-06-02] MEDS: QUEtiapine FUMARATE 100 MG TABLET (FP) PO SCH ×2 (10:19→21:34)
[2020-06-02] MEDS: COLLAGENASE CLOSTRIDIUM HIST. 30 GRAMS TUBE TP SCH (10:20)
[2020-06-02] MEDS: MINERAL OIL/PET HY-PHL TOPICAL OINTMENT 454 GM JAR TP SCH ×2 (10:20→21:34)
[2020-06-02] MEDS: NYSTATIN 100,000 UNIT/GM TOPICAL CREAM 15 GM TUBE TP SCH ×2 (10:20→22:58)
[2020-06-02] MEDS ORDERED: PT OWN MED DRAWER 7, Y5N ONE (21:33)
[2020-06-02] MEDS: ATORVASTATIN CA 20 MG TABLET (FP) PO SCH (21:34)
[2020-06-03] MEDS: LEVOTHYROXINE NA 75 MCG TABLET (FP) PO SCH (06:17)
[2020-06-03] MEDS ORDERED: PT OWN MED DRAWER 7, Y5N ONE ×2 (09:22→20:34)
[2020-06-03] MEDS: ERTAPENEM SODIUM 1 GM in SODIUM CHLORIDE 50 ML IVPB SCH (09:27)
[2020-06-03] MEDS: VALPROATE SODIUM 250 MG/5 ML UNIT DOSE CUP PO SCH ×2 (09:29→21:03)
[2020-06-03] MEDS: AMINO ACIDS/PROTEIN HYDROLYS 30 ML LIQUID.PKT PO SCH ×3 (09:29→18:55)
[2020-06-03] MEDS: QUEtiapine FUMARATE 100 MG TABLET (FP) PO SCH ×2 (09:30→21:03)
[2020-06-03] MEDS: levETIRAcetam 500 MG TABLET (FP) PO SCH ×2 (09:30→21:03)
[2020-06-03] MEDS: APIXABAN 5 MG TABLET PO SCH ×2 (09:30→21:03)
[2020-06-03] MEDS: MULTIVITAMINS (DAILY MVI) TABLET (FP) PO SCH (09:30)
[2020-06-03] MEDS: PANTOPRAZOLE 40 MG TABLET PO SCH (09:30)
[2020-06-03] MEDS: COLLAGENASE CLOSTRIDIUM HIST. 30 GRAMS TUBE TP SCH (10:50)
[2020-06-03] MEDS: NYSTATIN 100,000 UNIT/GM TOPICAL CREAM 15 GM TUBE TP SCH ×2 (10:50→21:03)
[2020-06-03] MEDS: MINERAL OIL/PET HY-PHL TOPICAL OINTMENT 454 GM JAR TP SCH ×2 (10:50→21:03)
[2020-06-03] MEDS: ATORVASTATIN CA 20 MG TABLET (FP) PO SCH (21:03)
[2020-06-04] MEDS: LEVOTHYROXINE NA 75 MCG TABLET (FP) PO SCH (06:02)
[2020-06-04 09:12] LABS: BASO % 0.6 % (0-2.0); EOS % 3.1 % (0-4.5); HEMATOCRIT 28.3 % (32.4-45.2); HEMOGLOBIN 9.5 GM/dL (10.7-15.3); LYMPH % 50.4 % (8-40); MCH 34.1 pg (25.7-33.7); MCHC 33.4 g/dl (32.0-36.0); MEAN CELL VOLUME 102.2 fl (80-96); MEAN PLT VOLUME 8.8 fl (7.5-11.1); MONO % 7.4 % (3.8-10.2); NEUT % 38.5 % (42.8-82.8); PLATELET COUNT 164 K/MM3 (134-434); RBC 2.77 M/mm3 (3.60-5.2); RDW 18.3 % (11.6-15.6); WHITE BLOOD COUNT 4.4 K/mm3 (4.0-10.0)
[2020-06-04] MEDS ORDERED: PT OWN MED DRAWER 7, Y5N ONE ×2 (09:21→21:20)
[2020-06-04 09:27] LABS: POTASSIUM 4.2 mmol/L (3.5-5.1)
[2020-06-04] MEDS: ERTAPENEM SODIUM 1 GM in SODIUM CHLORIDE 50 ML IVPB SCH (09:28)
[2020-06-04] MEDS: PANTOPRAZOLE 40 MG TABLET PO SCH (09:28)
[2020-06-04] MEDS: QUEtiapine FUMARATE 100 MG TABLET (FP) PO SCH ×2 (09:28→21:30)
[2020-06-04] MEDS: levETIRAcetam 500 MG TABLET (FP) PO SCH ×2 (09:28→21:30)
[2020-06-04] MEDS: MULTIVITAMINS (DAILY MVI) TABLET (FP) PO SCH (09:28)
[2020-06-04] MEDS: VALPROATE SODIUM 250 MG/5 ML UNIT DOSE CUP PO SCH ×2 (09:28→21:31)
[2020-06-04] MEDS: APIXABAN 5 MG TABLET PO SCH ×2 (09:28→21:30)
[2020-06-04 09:29] LABS: CALCIUM 8.2 mg/dL (8.5-10.1)
[2020-06-04] MEDS: AMINO ACIDS/PROTEIN HYDROLYS 30 ML LIQUID.PKT PO SCH ×3 (09:29→17:10)
[2020-06-04 09:30] LABS: ALBUMIN 2.2 g/dl (3.4-5.0); BLOOD UREA NITROGEN 18.1 mg/dL (7-18)
[2020-06-04 09:33] LABS: CREATININE 0.4 mg/dL (0.55-1.3)
[2020-06-04 09:35] LABS: BILIRUBIN,TOTAL 0.3 mg/dL (0.2-1); TOT PROT 6.6 g/dl (6.4-8.2)
[2020-06-04] MEDS: NYSTATIN 100,000 UNIT/GM TOPICAL CREAM 15 GM TUBE TP SCH ×2 (11:40→21:32)
[2020-06-04] MEDS: COLLAGENASE CLOSTRIDIUM HIST. 30 GRAMS TUBE TP SCH (11:40)
[2020-06-04] MEDS: MINERAL OIL/PET HY-PHL TOPICAL OINTMENT 454 GM JAR TP SCH ×2 (11:40→21:31)
[2020-06-04] MEDS: ATORVASTATIN CA 20 MG TABLET (FP) PO SCH (21:30)
[2020-06-04] MEDS: ACETAMINOPHEN 325 MG TABLET (FP) PO PRN (21:31)
[2020-06-04] MEDS ORDERED: METOCLOPRAMIDE HCL INJECTION 10 MG/2 ML VIAL IVPB ONE (23:36)
[2020-06-05] MEDS: LEVOTHYROXINE NA 75 MCG TABLET (FP) PO SCH (06:10)
[2020-06-05] MEDS: AMINO ACIDS/PROTEIN HYDROLYS 30 ML LIQUID.PKT PO SCH ×3 (08:21→17:07)
[2020-06-05] MEDS: COLLAGENASE CLOSTRIDIUM HIST. 30 GRAMS TUBE TP SCH (09:00)
[2020-06-05] MEDS: NYSTATIN 100,000 UNIT/GM TOPICAL CREAM 15 GM TUBE TP SCH ×2 (11:00→21:30)
[2020-06-05] MEDS: MINERAL OIL/PET HY-PHL TOPICAL OINTMENT 454 GM JAR TP SCH ×2 (11:00→21:31)
[2020-06-05] MEDS: VALPROATE SODIUM 250 MG/5 ML UNIT DOSE CUP PO SCH ×2 (12:10→21:31)
[2020-06-05] MEDS: APIXABAN 5 MG TABLET PO SCH ×2 (12:10→21:30)
[2020-06-05] MEDS: levETIRAcetam 500 MG TABLET (FP) PO SCH ×2 (12:10→21:30)
[2020-06-05] MEDS: PANTOPRAZOLE 40 MG TABLET PO SCH (12:11)
[2020-06-05] MEDS: MULTIVITAMINS (DAILY MVI) TABLET (FP) PO SCH (12:11)
[2020-06-05] MEDS: QUEtiapine FUMARATE 100 MG TABLET (FP) PO SCH ×2 (12:11→21:30)
[2020-06-05] MEDS: ERTAPENEM SODIUM 1 GM in SODIUM CHLORIDE 50 ML IVPB SCH (12:12)
[2020-06-05] MEDS ORDERED: PT OWN MED DRAWER 7, Y5N ONE (20:39)
[2020-06-05] MEDS: ATORVASTATIN CA 20 MG TABLET (FP) PO SCH (21:30)
[2020-06-06] MEDS: LEVOTHYROXINE NA 75 MCG TABLET (FP) PO SCH (06:58)
[2020-06-06] MEDS ORDERED: PT OWN MED DRAWER 7, Y5N ONE ×2 (09:19→20:50)
[2020-06-06] MEDS: APIXABAN 5 MG TABLET PO SCH ×2 (09:24→21:35)
[2020-06-06] MEDS: levETIRAcetam 500 MG TABLET (FP) PO SCH ×2 (09:24→21:35)
[2020-06-06] MEDS: VALPROATE SODIUM 250 MG/5 ML UNIT DOSE CUP PO SCH ×2 (09:24→21:35)
[2020-06-06] MEDS: PANTOPRAZOLE 40 MG TABLET PO SCH (09:24)
[2020-06-06] MEDS: AMINO ACIDS/PROTEIN HYDROLYS 30 ML LIQUID.PKT PO SCH ×3 (09:24→17:40)
[2020-06-06] MEDS: QUEtiapine FUMARATE 100 MG TABLET (FP) PO SCH ×2 (09:25→21:35)
[2020-06-06] MEDS: MULTIVITAMINS (DAILY MVI) TABLET (FP) PO SCH (09:25)
[2020-06-06] MEDS: ERTAPENEM SODIUM 1 GM in SODIUM CHLORIDE 50 ML IVPB SCH (09:25)
[2020-06-06] MEDS: MINERAL OIL/PET HY-PHL TOPICAL OINTMENT 454 GM JAR TP SCH ×2 (09:25→21:36)
[2020-06-06] MEDS: NYSTATIN 100,000 UNIT/GM TOPICAL CREAM 15 GM TUBE TP SCH ×2 (09:26→21:36)
[2020-06-06] MEDS: COLLAGENASE CLOSTRIDIUM HIST. 30 GRAMS TUBE TP SCH (13:17)
[2020-06-06] MEDS: ATORVASTATIN CA 20 MG TABLET (FP) PO SCH (21:35)
[2020-06-07] MEDS: LEVOTHYROXINE NA 75 MCG TABLET (FP) PO SCH (06:19)
[2020-06-07] MEDS ORDERED: PT OWN MED DRAWER 7, Y5N ONE ×4 (08:54→20:23)
[2020-06-07] MEDS: MINERAL OIL/PET HY-PHL TOPICAL OINTMENT 454 GM JAR TP SCH ×2 (09:51→22:56)
[2020-06-07] MEDS: AMINO ACIDS/PROTEIN HYDROLYS 30 ML LIQUID.PKT PO SCH ×3 (09:51→17:51)
[2020-06-07] MEDS: QUEtiapine FUMARATE 100 MG TABLET (FP) PO SCH ×2 (09:52→22:51)
[2020-06-07] MEDS: levETIRAcetam 500 MG TABLET (FP) PO SCH ×2 (09:52→22:51)
[2020-06-07] MEDS: APIXABAN 5 MG TABLET PO SCH ×2 (09:52→22:50)
[2020-06-07] MEDS: NYSTATIN 100,000 UNIT/GM TOPICAL CREAM 15 GM TUBE TP SCH ×2 (09:52→22:57)
[2020-06-07] MEDS: VALPROATE SODIUM 250 MG/5 ML UNIT DOSE CUP PO SCH ×2 (09:52→22:50)
[2020-06-07] MEDS: COLLAGENASE CLOSTRIDIUM HIST. 30 GRAMS TUBE TP SCH (09:52)
[2020-06-07] MEDS: MULTIVITAMINS (DAILY MVI) TABLET (FP) PO SCH (09:52)
[2020-06-07] MEDS: PANTOPRAZOLE 40 MG TABLET PO SCH (09:52)
[2020-06-07] MEDS: ATORVASTATIN CA 20 MG TABLET (FP) PO SCH (22:51)
[2020-06-08] MEDS: LEVOTHYROXINE NA 75 MCG TABLET (FP) PO SCH (06:37)
[2020-06-08] MEDS ORDERED: PT OWN MED DRAWER 7, Y5N ONE ×2 (09:22→20:36)
[2020-06-08] MEDS: APIXABAN 5 MG TABLET PO SCH ×2 (09:41→21:41)
[2020-06-08] MEDS: PANTOPRAZOLE 40 MG TABLET PO SCH (09:41)
[2020-06-08] MEDS: QUEtiapine FUMARATE 100 MG TABLET (FP) PO SCH ×2 (09:41→21:41)
[2020-06-08] MEDS: levETIRAcetam 500 MG TABLET (FP) PO SCH ×2 (09:41→21:41)
[2020-06-08] MEDS: MULTIVITAMINS (DAILY MVI) TABLET (FP) PO SCH (09:41)
[2020-06-08] MEDS: COLLAGENASE CLOSTRIDIUM HIST. 30 GRAMS TUBE TP SCH (09:41)
[2020-06-08] MEDS: MINERAL OIL/PET HY-PHL TOPICAL OINTMENT 454 GM JAR TP SCH ×2 (09:41→21:43)
[2020-06-08] MEDS: NYSTATIN 100,000 UNIT/GM TOPICAL CREAM 15 GM TUBE TP SCH ×2 (09:41→21:43)
[2020-06-08] MEDS: VALPROATE SODIUM 250 MG/5 ML UNIT DOSE CUP PO SCH ×2 (09:41→21:41)
[2020-06-08] MEDS: AMINO ACIDS/PROTEIN HYDROLYS 30 ML LIQUID.PKT PO SCH ×3 (09:41→18:07)
[2020-06-08] MEDS: ATORVASTATIN CA 20 MG TABLET (FP) PO SCH (21:41)
[2020-06-09] MEDS: LEVOTHYROXINE NA 75 MCG TABLET (FP) PO SCH (06:20)
[2020-06-09] MEDS ORDERED: PT OWN MED DRAWER 7, Y5N ONE ×3 (09:12→21:06)
[2020-06-09] MEDS: MULTIVITAMINS (DAILY MVI) TABLET (FP) PO SCH (09:48)
[2020-06-09] MEDS: MINERAL OIL/PET HY-PHL TOPICAL OINTMENT 454 GM JAR TP SCH ×2 (09:48→22:50)
[2020-06-09] MEDS: QUEtiapine FUMARATE 100 MG TABLET (FP) PO SCH ×2 (09:48→22:49)
[2020-06-09] MEDS: PANTOPRAZOLE 40 MG TABLET PO SCH (09:48)
[2020-06-09] MEDS: AMINO ACIDS/PROTEIN HYDROLYS 30 ML LIQUID.PKT PO SCH ×3 (09:48→18:15)
[2020-06-09] MEDS: APIXABAN 5 MG TABLET PO SCH ×2 (09:48→22:49)
[2020-06-09] MEDS: VALPROATE SODIUM 250 MG/5 ML UNIT DOSE CUP PO SCH ×2 (09:48→22:48)
[2020-06-09] MEDS: levETIRAcetam 500 MG TABLET (FP) PO SCH ×2 (09:48→22:48)
[2020-06-09] MEDS: NYSTATIN 100,000 UNIT/GM TOPICAL CREAM 15 GM TUBE TP SCH ×2 (09:49→22:50)
[2020-06-09] MEDS: COLLAGENASE CLOSTRIDIUM HIST. 30 GRAMS TUBE TP SCH (09:49)
[2020-06-09] MEDS: ATORVASTATIN CA 20 MG TABLET (FP) PO SCH (22:48)
[2020-06-10] MEDS: LEVOTHYROXINE NA 75 MCG TABLET (FP) PO SCH (06:19)
[2020-06-10 08:06] LABS: BASO % 0.4 % (0-2.0); EOS % 5.1 % (0-4.5); HEMATOCRIT 30.5 % (32.4-45.2); HEMOGLOBIN 9.7 GM/dL (10.7-15.3); LYMPH % 56.7 % (8-40); MCH 33.4 pg (25.7-33.7); MEAN CELL VOLUME 104.4 fl (80-96); MEAN PLT VOLUME 8.8 fl (7.5-11.1); MONO % 9.3 % (3.8-10.2); NEUT % 28.5 % (42.8-82.8); PLATELET COUNT 255 K/MM3 (134-434); RBC 2.92 M/mm3 (3.60-5.2); RDW 19.4 % (11.6-15.6); WHITE BLOOD COUNT 4.5 K/mm3 (4.0-10.0)
[2020-06-10 08:41] LABS: POTASSIUM 4.4 mmol/L (3.5-5.1)
[2020-06-10 08:47] LABS: CALCIUM 8.7 mg/dL (8.5-10.1)
[2020-06-10 08:48] LABS: ALBUMIN 2.7 g/dl (3.4-5.0); BLOOD UREA NITROGEN 26.7 mg/dL (7-18)
[2020-06-10 08:50] LABS: BILIRUBIN,TOTAL 0.3 mg/dL (0.2-1)
[2020-06-10 08:51] LABS: CREATININE 0.4 mg/dL (0.55-1.3); TOT PROT 6.8 g/dl (6.4-8.2)
[2020-06-10] MEDS: VALPROATE SODIUM 250 MG/5 ML UNIT DOSE CUP PO SCH ×2 (09:11→21:23)
[2020-06-10] MEDS: PANTOPRAZOLE 40 MG TABLET PO SCH (09:21)
[2020-06-10] MEDS: APIXABAN 5 MG TABLET PO SCH ×2 (09:21→21:23)
[2020-06-10] MEDS: QUEtiapine FUMARATE 100 MG TABLET (FP) PO SCH ×2 (09:21→21:23)
[2020-06-10] MEDS: levETIRAcetam 500 MG TABLET (FP) PO SCH ×2 (09:21→21:23)
[2020-06-10] MEDS: AMINO ACIDS/PROTEIN HYDROLYS 30 ML LIQUID.PKT PO SCH ×3 (09:21→17:31)
[2020-06-10] MEDS: MULTIVITAMINS (DAILY MVI) TABLET (FP) PO SCH (09:21)
[2020-06-10] MEDS: MINERAL OIL/PET HY-PHL TOPICAL OINTMENT 454 GM JAR TP SCH ×2 (09:23→21:24)
[2020-06-10] MEDS: NYSTATIN 100,000 UNIT/GM TOPICAL CREAM 15 GM TUBE TP SCH ×2 (09:23→21:24)
[2020-06-10] MEDS: COLLAGENASE CLOSTRIDIUM HIST. 30 GRAMS TUBE TP SCH (11:16)
[2020-06-10] MEDS ORDERED: PT OWN MED DRAWER 7, Y5N ONE (21:00)
[2020-06-10] MEDS: ATORVASTATIN CA 20 MG TABLET (FP) PO SCH (21:23)
[2020-06-10] MEDS: ACETAMINOPHEN 325 MG TABLET (FP) PO PRN (21:24)
[2020-06-11] MEDS: LEVOTHYROXINE NA 75 MCG TABLET (FP) PO SCH (06:11)
[2020-06-11] MEDS ORDERED: PT OWN MED DRAWER 7, Y5N ONE ×2 (10:00→20:41)
[2020-06-11] MEDS: QUEtiapine FUMARATE 100 MG TABLET (FP) PO SCH ×2 (10:56→21:16)
[2020-06-11] MEDS: MULTIVITAMINS (DAILY MVI) TABLET (FP) PO SCH (10:56)
[2020-06-11] MEDS: AMINO ACIDS/PROTEIN HYDROLYS 30 ML LIQUID.PKT PO SCH ×3 (10:56→17:39)
[2020-06-11] MEDS: APIXABAN 5 MG TABLET PO SCH ×2 (10:57→21:16)
[2020-06-11] MEDS: levETIRAcetam 500 MG TABLET (FP) PO SCH ×2 (10:57→21:16)
[2020-06-11] MEDS: VALPROATE SODIUM 250 MG/5 ML UNIT DOSE CUP PO SCH ×2 (10:57→21:16)
[2020-06-11] MEDS: PANTOPRAZOLE 40 MG TABLET PO SCH (10:57)
[2020-06-11] MEDS: COLLAGENASE CLOSTRIDIUM HIST. 30 GRAMS TUBE TP SCH (11:56)
[2020-06-11] MEDS: MINERAL OIL/PET HY-PHL TOPICAL OINTMENT 454 GM JAR TP SCH ×2 (11:56→21:16)
[2020-06-11] MEDS: NYSTATIN 100,000 UNIT/GM TOPICAL CREAM 15 GM TUBE TP SCH ×2 (11:56→21:15)
[2020-06-11] MEDS: ATORVASTATIN CA 20 MG TABLET (FP) PO SCH (21:16)
[2020-06-11] MEDS: ACETAMINOPHEN 325 MG TABLET (FP) PO PRN (22:54)
[2020-06-12] MEDS: LEVOTHYROXINE NA 75 MCG TABLET (FP) PO SCH (06:06)
[2020-06-12] MEDS: AMINO ACIDS/PROTEIN HYDROLYS 30 ML LIQUID.PKT PO SCH ×3 (08:27→16:39)
[2020-06-12] MEDS ORDERED: PT OWN MED DRAWER 7, Y5N ONE ×3 (10:12→22:05)
[2020-06-12] MEDS: PANTOPRAZOLE 40 MG TABLET PO SCH (10:34)
[2020-06-12] MEDS: VALPROATE SODIUM 250 MG/5 ML UNIT DOSE CUP PO SCH ×2 (10:34→22:21)
[2020-06-12] MEDS: QUEtiapine FUMARATE 100 MG TABLET (FP) PO SCH ×2 (10:34→22:22)
[2020-06-12] MEDS: APIXABAN 5 MG TABLET PO SCH ×2 (10:34→21:59)
[2020-06-12] MEDS: MULTIVITAMINS (DAILY MVI) TABLET (FP) PO SCH (10:34)
[2020-06-12] MEDS: levETIRAcetam 500 MG TABLET (FP) PO SCH ×2 (10:34→21:59)
[2020-06-12] MEDS: MINERAL OIL/PET HY-PHL TOPICAL OINTMENT 454 GM JAR TP SCH ×2 (11:07→21:59)
[2020-06-12] MEDS: NYSTATIN 100,000 UNIT/GM TOPICAL CREAM 15 GM TUBE TP SCH ×2 (11:07→22:01)
[2020-06-12] MEDS: COLLAGENASE CLOSTRIDIUM HIST. 30 GRAMS TUBE TP SCH (11:07)
[2020-06-12] MEDS: ATORVASTATIN CA 20 MG TABLET (FP) PO SCH (21:59)
[2020-06-13] MEDS: LEVOTHYROXINE NA 75 MCG TABLET (FP) PO SCH (06:03)
[2020-06-13] MEDS ORDERED: PT OWN MED DRAWER 7, Y5N ONE ×3 (08:28→20:50)
[2020-06-13] MEDS: AMINO ACIDS/PROTEIN HYDROLYS 30 ML LIQUID.PKT PO SCH ×3 (08:30→18:20)
[2020-06-13] MEDS: MULTIVITAMINS (DAILY MVI) TABLET (FP) PO SCH (10:37)
[2020-06-13] MEDS: QUEtiapine FUMARATE 100 MG TABLET (FP) PO SCH ×2 (10:38→22:34)
[2020-06-13] MEDS: PANTOPRAZOLE 40 MG TABLET PO SCH (10:38)
[2020-06-13] MEDS: levETIRAcetam 500 MG TABLET (FP) PO SCH ×2 (10:38→22:34)
[2020-06-13] MEDS: APIXABAN 5 MG TABLET PO SCH ×2 (10:50→22:34)
[2020-06-13] MEDS: VALPROATE SODIUM 250 MG/5 ML UNIT DOSE CUP PO SCH ×2 (10:51→22:34)
[2020-06-13] MEDS: NYSTATIN 100,000 UNIT/GM TOPICAL CREAM 15 GM TUBE TP SCH ×2 (10:52→22:34)
[2020-06-13] MEDS: MINERAL OIL/PET HY-PHL TOPICAL OINTMENT 454 GM JAR TP SCH ×2 (10:52→22:34)
[2020-06-13] MEDS: COLLAGENASE CLOSTRIDIUM HIST. 30 GRAMS TUBE TP SCH (18:19)
[2020-06-13 18:36] VITALS: BMI 24.7
[2020-06-13] MEDS: ATORVASTATIN CA 20 MG TABLET (FP) PO SCH (22:34)
[2020-06-14 05:25] VITALS: BP 92/52; PULSE 74; TEMP 97.8
[2020-06-14] MEDS: LEVOTHYROXINE NA 75 MCG TABLET (FP) PO SCH (06:31)
[2020-06-14] MEDS: AMINO ACIDS/PROTEIN HYDROLYS 30 ML LIQUID.PKT PO SCH ×2 (08:01→13:36)
[2020-06-14] MEDS ORDERED: PT OWN MED DRAWER 7, Y5N ONE (09:33)
[2020-06-14] MEDS: levETIRAcetam 500 MG TABLET (FP) PO SCH (09:45)
[2020-06-14] MEDS: QUEtiapine FUMARATE 100 MG TABLET (FP) PO SCH (09:45)
[2020-06-14] MEDS: VALPROATE SODIUM 250 MG/5 ML UNIT DOSE CUP PO SCH (09:45)
[2020-06-14] MEDS: MULTIVITAMINS (DAILY MVI) TABLET (FP) PO SCH (09:45)
[2020-06-14] MEDS: APIXABAN 5 MG TABLET PO SCH (09:45)
[2020-06-14] MEDS: PANTOPRAZOLE 40 MG TABLET PO SCH (09:45)
[2020-06-14] MEDS: COLLAGENASE CLOSTRIDIUM HIST. 30 GRAMS TUBE TP SCH (09:46)
[2020-06-14] MEDS: NYSTATIN 100,000 UNIT/GM TOPICAL CREAM 15 GM TUBE TP SCH (09:46)
[2020-06-14] MEDS: MINERAL OIL/PET HY-PHL TOPICAL OINTMENT 454 GM JAR TP SCH (09:46)
== END 2020-06-14 15:05 | DRG 720 ==
LOC: JER 20:10 → JERBED 05-17 01:16 → JICU 05-17 04:57 → J8W 05-21 17:34
PROVIDERS: ADMIT Internal Medicine Pulmonary Disease; ATTEND Internal Medicine
PROC: 30233N1 Transfusion of Nonautologous Red Blood Cells into Peripheral Vein, Percutaneous Approach (ICD-10-PCS; principal; 2020-05-27)
DX: A41.9 Sepsis, unspecified organism (principal); G40.909 Epilepsy, unspecified, not intractable, without status epilepticus; F25.9 Schizoaffective disorder, unspecified; F31.9 Bipolar disorder, unspecified; N39.0 Urinary tract infection, site not specified; D72.829 Elevated white blood cell count, unspecified; M86.19 Other acute osteomyelitis, multiple sites; L97.318 Non-pressure chronic ulcer of right ankle with other specified severity; Z16.12 Extended spectrum beta lactamase (ESBL) resistance; B96.20 Unspecified Escherichia coli [E. coli] as the cause of diseases classified elsewhere; Z16.24 Resistance to multiple antibiotics; A04.72 Enterocolitis due to Clostridium difficile, not specified as recurrent; U07.1 COVID-19; R65.21 Severe sepsis with septic shock; G92 Toxic encephalopathy; E87.2 Acidosis; L89.624 Pressure ulcer of left heel, stage 4; I95.9 Hypotension, unspecified; D64.9 Anemia, unspecified; E03.9 Hypothyroidism, unspecified; D69.6 Thrombocytopenia, unspecified; E86.0 Dehydration
CPT/HCPCS: 36415; 36430; 71045-TC-FY; 73630-TC-LT; 80048; 80053; 81003; 82272; 82308; 82550; 82607; 82728; 82746; 82803; 82962; 83036; 83540; 83550; 83605; 83735; 84100; 84443; 84484; 85025; 85027; 85045; 85610; 85651; 85730; 86850; 86900; 86901; 86922; 87040; 87045; 87046; 87086; 87186; 87324; 87449; 93005; 93010; 93970-TC; 99291; C9803; G0480; J3480; P9058; U0003

== ENCOUNTER 2020-08-17 15:21 | Inpatient (IN) | payer MEDICARE, OTHER ==
[2020-08-17] MEDS ORDERED: SODIUM CHLORIDE 0.9% 500 ML INFUS.BAG IV ONE ×3 (15:40→19:13)
[2020-08-17] MEDS ORDERED: PIPERACILLIN/TAZOB 4.5 GM 4.5 GM in DEXTROSE 5%-WATER 100 ML IVPB ONE (15:55)
[2020-08-17 16:37] LABS: EPI CELLS >36 /uL (0-25.1); HYALINE CASTS 103 /uL (0-3.1); PH,URINE 5.5 (5.0-8.0); URINE APPEARANCE TURBID; URINE BACTERIA >9,000 /uL (0-1359); URINE BILIRUBIN 1+ (NEGATIVE); URINE COLOR DK YELLOW; URINE GLUCOSE (UA) NEGATIVE (NEGATIVE); URINE KETONE TRACE (NEGATIVE); URINE LEUK ESTERASE 3+ (NEGATIVE); URINE NITRITE POSITIVE (NEGATIVE); URINE PROTEIN 1+ (NEGATIVE); URINE UROBILINOGEN 0.2 mg/dL (0.2-1.0); URINE WBC 15892 /uL (0-25.8)
[2020-08-17] MEDS ORDERED: PIPERACILLIN/TAZOB 4.5 GM 4.5 GM/100 ML BAG IVPB ONE (16:39)
[2020-08-17 17:05] LABS: BASO % 0.1 % (0-2.0); EOS % 0.1 % (0-4.5); HEMATOCRIT 34.9 % (32.4-45.2); LYMPH % 14.3 % (8-40); MCH 32.4 pg (25.7-33.7); MCHC 31.7 g/dl (32.0-36.0); MEAN CELL VOLUME 102.4 fl (80-96); MEAN PLT VOLUME 10.7 fl (7.5-11.1); MONO % 5.6 % (3.8-10.2); NEUT % 79.9 % (42.8-82.8); RBC 3.41 M/mm3 (3.60-5.2); RDW 16.6 % (11.6-15.6)
[2020-08-17 17:22] LABS: CHLORIDE 97 mmol/L (98-107); SODIUM 127 mmol/L (136-145)
[2020-08-17 17:24] LABS: CALCIUM 7.3 mg/dL (8.5-10.1)
[2020-08-17 17:25] LABS: ALBUMIN 1.2 g/dl (3.4-5.0); ANION GAP 11 MMOL/L (8-16); BLOOD UREA NITROGEN 17.6 mg/dL (7-18); CO2 19 mmol/L (21-32); GLUCOSE,RANDOM 114 mg/dL (74-106)
[2020-08-17 17:28] LABS: CREATININE 0.7 mg/dL (0.55-1.3); SGOT/AST 17 U/L (15-37); SGPT/ALT 10 U/L (13-61)
[2020-08-17 17:29] LABS: BILIRUBIN,TOTAL 0.5 mg/dL (0.2-1); TOT PROT 3.9 g/dl (6.4-8.2)
[2020-08-17 17:31] LABS: ALK PHOS 266 U/L (45-117)
[2020-08-17 17:33] LABS: LACTIC ACID 3.5 mmol/L (0.4-2.0)
[2020-08-17 17:51] LABS: PLATELET COUNT 7 K/MM3 (134-434)
[2020-08-17 18:04] LABS: ANISOCYTOSIS 1+; MACROCYTOSIS 1+; PLATELET ESTIMATE DECREASED
[2020-08-17 18:46] LABS: BASO % 0.2 % (0-2.0); EOS % 0.2 % (0-4.5); HEMOGLOBIN 8.6 GM/dL (10.7-15.3); LYMPH % 10.2 % (8-40); MCH 32.3 pg (25.7-33.7); MCHC 31.7 g/dl (32.0-36.0); MONO % 0.7 % (3.8-10.2); NEUT % 88.7 % (42.8-82.8); RBC 2.65 M/mm3 (3.60-5.2); RDW 16.3 % (11.6-15.6)
[2020-08-17 19:01] LABS: ACTIVATED PTT 70.4 SECONDS (25.2-36.5)
[2020-08-17] MEDS ORDERED: ACETAMINOPHEN 1000 MG/100 ML VIAL (NON FORMULARY) IVPB ONE (19:02)
[2020-08-17 19:06] LABS: CHLORIDE 104 mmol/L (98-107); SODIUM 132 mmol/L (136-145)
[2020-08-17] MEDS ORDERED: ACETAMINOPHEN INJECTION 100 ML IVPB ONE (19:06)
[2020-08-17 19:08] LABS: ANION GAP 12 MMOL/L (8-16); BLOOD UREA NITROGEN 17.3 mg/dL (7-18); CO2 16 mmol/L (21-32); GLUCOSE,RANDOM 122 mg/dL (74-106)
[2020-08-17 19:09] LABS: URINE RBC 245.1 /uL (0-23.9)
[2020-08-17 19:11] LABS: CREATININE 0.5 mg/dL (0.55-1.3)
[2020-08-17] MEDS ORDERED: VANCOMYCIN 1 GM in D5W (PRE-DOCKED) 1,000 MG/250 ML IVPB ONE (19:11)
[2020-08-17 19:18] LABS: CALCIUM 6.6 mg/dL (8.5-10.1)
[2020-08-17 19:19] LABS: PROTHROMBIN TIME (PATIENT) 120.3 SEC (9.7-13.0)
[2020-08-17 19:20] LABS: INR 10.65 (0.83-1.09)
[2020-08-17 19:32] LABS: ANISOCYTOSIS 1+; MACROCYTOSIS 1+; PLATELET ESTIMATE DECREASED
[2020-08-17 19:34] LABS: MEAN PLT VOLUME 10.8 fl (7.5-11.1)
[2020-08-17 19:35] LABS: PLATELET COUNT 5 K/MM3 (134-434)
[2020-08-17 19:37] LABS: LACTIC ACID 2.5 mmol/L (0.4-2.0)
[2020-08-17] MEDS ORDERED: PHYTONADIONE 10 MG/1 ML AMP IVPB ONE (19:54)
[2020-08-17] MEDS ORDERED: PHYTONADIONE 10 MG/1 ML AMP ONE (20:08)
[2020-08-17] MEDS ORDERED: VANCOMYCIN 1 GRAM (PRE-DOCKED) 1,000 MG/250 ML BAG IVPB ONE (21:44)
[2020-08-18] MEDS ORDERED: PIPERACILLIN/TAZOBACTAM 3.375 GM VIAL IVPB ONE ×2 (03:29→09:14)
[2020-08-18] MEDS ORDERED: DEXTROSE 5%-WATER - 50 ML IVPB ONE ×2 (03:30→09:14)
[2020-08-18] MEDS ORDERED: NOREPINEPHRINE BITARTRATE 4,000 MCG in DEXTROSE 5%-WATER - 496 ML IV SCH (03:30)
[2020-08-18] MEDS: PIPERACILLIN/TAZOB 3.375 GM 3.375 GM in DEXTROSE 5%-WATER - 50 ML IVPB SCH ×2 (03:46→09:32)
[2020-08-18] MEDS ORDERED: CALCIUM GLUCONATE 10% - 1,000 MG/10 ML VIAL IVPB ONE (09:05)
[2020-08-18 09:14] LABS: HEMATOCRIT 37.1 % (32.4-45.2); HEMOGLOBIN 12.5 GM/dL (10.7-15.3); MCH 31.4 pg (25.7-33.7); MCHC 33.7 g/dl (32.0-36.0); MEAN CELL VOLUME 93.2 fl (80-96); MEAN PLT VOLUME 8.9 fl (7.5-11.1); RBC 3.98 M/mm3 (3.60-5.2); RDW 19.3 % (11.6-15.6); WHITE BLOOD COUNT 15.5 K/mm3 (4.0-10.0)
[2020-08-18 09:21] LABS: PLATELET COUNT 24 K/MM3 (134-434)
[2020-08-18 09:23] LABS: INR 1.79 (0.83-1.09); PROTHROMBIN TIME (PATIENT) 21.6 SEC (9.7-13.0)
[2020-08-18 09:26] LABS: ACTIVATED PTT 41.7 SECONDS (25.2-36.5)
[2020-08-18 09:43] LABS: CHLORIDE 111 mmol/L (98-107); SODIUM 138 mmol/L (136-145)
[2020-08-18 09:45] LABS: BLOOD UREA NITROGEN 16.6 mg/dL (7-18)
[2020-08-18 09:46] LABS: ALBUMIN 1.4 g/dl (3.4-5.0); CO2 15 mmol/L (21-32); GLUCOSE,RANDOM 95 mg/dL (74-106); MAGNESIUM 1.6 mg/dL (1.8-2.4)
[2020-08-18 09:49] LABS: CREATININE 0.5 mg/dL (0.55-1.3); SGOT/AST 15 U/L (15-37); SGPT/ALT 10 U/L (13-61)
[2020-08-18 09:49] LABS: ALBUMIN 1.3 g/dl (3.4-5.0)
[2020-08-18 09:50] LABS: TOT PROT 3.6 g/dl (6.4-8.2)
[2020-08-18 09:51] LABS: BILIRUBIN,DIRECT 1.5 mg/dL (0.0-0.2)
[2020-08-18 09:53] LABS: BILIRUBIN,TOTAL 2.2 mg/dL (0.2-1)
[2020-08-18 09:54] LABS: TOT PROT 3.6 g/dl (6.4-8.2)
[2020-08-18 10:00] LABS: ALK PHOS 180 U/L (45-117); ANION GAP 12 MMOL/L (8-16); LDH 167 U/L (84-246)
[2020-08-18 10:19] LABS: CALCIUM 6.9 mg/dL (8.5-10.1)
[2020-08-18] MEDS: SODIUM CHLORIDE 0.45% 1,000 ML IV SCH (10:30)
[2020-08-18] MEDS ORDERED: PT OWN MED DRAWER 7, Y5N ONE ×2 (10:32→14:39)
[2020-08-18] MEDS ORDERED: PHENYLEPHRINE HCL 10 MG/1 ML SINGLE DOSE VIAL ONE (10:36)
[2020-08-18] MEDS ORDERED: AMIODARONE HCL 150 MG/3 ML VIAL IVPUSH ONE (10:36)
[2020-08-18] MEDS: PHENYLEPHRINE NS PREMIX 50,000 MCG/500 ML BAG CVP SCH ×2 (10:45→16:11)
[2020-08-18] MEDS ORDERED: MAGNESIUM SULFATE IN WATER 2 GM/50 ML IVPB IVPB ONE (11:00)
[2020-08-18] MEDS ORDERED: MEROPENEM 1 GM VIAL (RESTRICTED TO ID) IVPB ONE ×2 (11:21→18:03)
[2020-08-18] MEDS ORDERED: DEXTROSE 5%-WATER 100 ML IVPB ONE ×2 (11:21→18:03)
[2020-08-18] MEDS: MEROPENEM 1 GM in DEXTROSE 5%-WATER 100 ML IVPB SCH ×2 (11:24→18:14)
[2020-08-18] MEDS: PHYTONADIONE 10 MG/1 ML AMP SQ SCH (11:25)
[2020-08-18] MEDS: POTASSIUM CHLORIDE 20 MEQ PREMIX IVPB 100 ML IVPB SCH ×3 (11:53→14:05)
[2020-08-18 12:01] LABS: ANISOCYTOSIS 1+; MACROCYTOSIS 1+; PLATELET ESTIMATE DECREASED
[2020-08-18] MEDS: VANCOMYCIN 1 GRAM (PRE-DOCKED) 1,000 MG/250 ML BAG IVPB SCH (12:03)
[2020-08-18] MEDS ORDERED: PANTOPRAZOLE 40 MG TABLET PO SCH (12:15)
[2020-08-18] MEDS ORDERED: DIVALPROEX SODIUM 500 MG TABLET E.C. PO SCH (12:15)
[2020-08-18] MEDS ORDERED: ASCORBIC ACID 500 MG TABLET (FP) PO SCH (12:15)
[2020-08-18] MEDS ORDERED: COLLAGENASE CLOSTRIDIUM HIST. 30 GRAMS TUBE TP SCH (12:15)
[2020-08-18] MEDS ORDERED: LEVOTHYROXINE NA 75 MCG TABLET (FP) PO SCH (12:45)
[2020-08-18] MEDS: COLLAGENASE CLOSTRIDIUM HIST. 30 GRAMS TUBE TP SCH (13:00)
[2020-08-18] MEDS: levETIRAcetam 500 MG/5 ML ORAL SOLUTION (UNIT-DOSE CUPS) PO SCH ×2 (13:18→21:52)
[2020-08-18] MEDS: PANTOPRAZOLE SODIUM 40 MG VIAL IVPUSH SCH (14:41)
[2020-08-18] MEDS: LEVOTHYROXINE SODIUM 100 MCG VIAL IVPUSH SCH (14:43)
[2020-08-18] MEDS: VALPROATE SODIUM 250 MG/5 ML UNIT DOSE CUP PO SCH ×2 (15:00→21:52)
[2020-08-18] MEDS ORDERED: NOREPINEPHRINE BITARTRATE 4 MG/4 ML ML IV ONE (15:27)
[2020-08-18] MEDS ORDERED: MEROPENEM 1 GM in DEXTROSE 5%-WATER 100 ML IVPB SCH (18:00)
[2020-08-18] MEDS: HYDROCORTISONE SOD SUCCINATE 100 MG/2 ML VIAL IVPUSH SCH (18:15)
[2020-08-18] MEDS: VANCOMYCIN 250 MG/5 ML ORAL SOLUTION PO SCH (18:15)
[2020-08-18] MEDS ORDERED: ATORVASTATIN CA 20 MG TABLET (FP) PO SCH (22:00)
[2020-08-19] MEDS: VANCOMYCIN 1 GRAM (PRE-DOCKED) 1,000 MG/250 ML BAG IVPB SCH ×2 (00:01→11:28)
[2020-08-19] MEDS: VANCOMYCIN 250 MG/5 ML ORAL SOLUTION PO SCH ×4 (00:01→19:18)
[2020-08-19] MEDS ORDERED: DEXTROSE 5%-WATER 100 ML IVPB ONE ×4 (01:17→18:07)
[2020-08-19] MEDS ORDERED: MEROPENEM 1 GM VIAL (RESTRICTED TO ID) IVPB ONE ×3 (01:17→17:24)
[2020-08-19] MEDS: MEROPENEM 1 GM in DEXTROSE 5%-WATER 100 ML IVPB SCH ×2 (01:33→10:40)
[2020-08-19] MEDS: HYDROCORTISONE SOD SUCCINATE 100 MG/2 ML VIAL IVPUSH SCH ×3 (01:33→18:49)
[2020-08-19] MEDS ORDERED: PIPERACILLIN/TAZOB 3.375 GM 3.375 GM in DEXTROSE 5%-WATER - 50 ML IVPB SCH (02:00)
[2020-08-19] MEDS: NOREPINEPHRINE D5W PREMIX 16,000 MCG/500 ML BAG IVPB SCH (03:45)
[2020-08-19] MEDS: VALPROATE SODIUM 250 MG/5 ML UNIT DOSE CUP PO SCH ×3 (06:22→21:43)
[2020-08-19 06:54] LABS: HEMATOCRIT 39.9 % (32.4-45.2); HEMOGLOBIN 13.4 GM/dL (10.7-15.3); MCH 31.4 pg (25.7-33.7); MCHC 33.7 g/dl (32.0-36.0); MEAN CELL VOLUME 93.2 fl (80-96); MEAN PLT VOLUME 9.2 fl (7.5-11.1); PLATELET COUNT 41 K/MM3 (134-434); RBC 4.28 M/mm3 (3.60-5.2); RDW 20.7 % (11.6-15.6); WHITE BLOOD COUNT 22.2 K/mm3 (4.0-10.0)
[2020-08-19] MEDS: SODIUM CHLORIDE 0.45% 1,000 ML IV SCH (07:00)
[2020-08-19 07:03] LABS: INR 1.18 (0.83-1.09); PROTHROMBIN TIME (PATIENT) 14.5 SEC (9.7-13.0)
[2020-08-19 07:05] LABS: ACTIVATED PTT 34.2 SECONDS (25.2-36.5)
[2020-08-19 07:13] LABS: CALCIUM 7.9 mg/dL (8.5-10.1)
[2020-08-19 07:14] LABS: BLOOD UREA NITROGEN 14.3 mg/dL (7-18); MAGNESIUM 2.4 mg/dL (1.8-2.4)
[2020-08-19 07:17] LABS: CREATININE 0.6 mg/dL (0.55-1.3); PHOSPHOROUS 3.1 mg/dL (2.5-4.9)
[2020-08-19 07:18] LABS: BILIRUBIN,TOTAL 1.7 mg/dL (0.2-1)
[2020-08-19 07:19] LABS: TOT PROT 4.5 g/dl (6.4-8.2)
[2020-08-19 07:21] LABS: ALBUMIN 1.7 g/dl (3.4-5.0)
[2020-08-19 08:54] LABS: ANISOCYTOSIS 1+; PLATELET ESTIMATE DECREASED; TARGET CELLS 0
[2020-08-19] MEDS ORDERED: PT OWN MED DRAWER 7, Y5N ONE (09:23)
[2020-08-19] MEDS: LEVOTHYROXINE SODIUM 100 MCG VIAL IVPUSH SCH (10:40)
[2020-08-19] MEDS: PHYTONADIONE 10 MG/1 ML AMP SQ SCH (10:40)
[2020-08-19] MEDS: levETIRAcetam 500 MG/5 ML ORAL SOLUTION (UNIT-DOSE CUPS) PO SCH ×2 (10:40→21:44)
[2020-08-19] MEDS: PANTOPRAZOLE SODIUM 40 MG VIAL IVPUSH SCH (10:40)
[2020-08-19] MEDS: COLLAGENASE CLOSTRIDIUM HIST. 30 GRAMS TUBE TP SCH (10:40)
[2020-08-19] MEDS: KCL 10 MEQ IVPB 10 MEQ/100 ML INFUS.BAG IVPB SCH ×4 (11:28→15:42)
[2020-08-19] MEDS ORDERED: KCL 10 MEQ IVPB 10 MEQ/100 ML INFUS.BAG IVPB SCH (15:15)
[2020-08-19] MEDS: CEFTRIAXONE 2 GM in DEXTROSE 5%-WATER 100 ML IVPB SCH (18:45)
[2020-08-19] MEDS: PHENYLEPHRINE NS PREMIX 50,000 MCG/500 ML BAG CVP SCH (18:48)
[2020-08-19] MEDS: NYSTATIN 100,000 UNIT/GM TOPICAL CREAM 15 GM TUBE TP SCH ×2 (21:42→22:22)
[2020-08-20] MEDS: HYDROCORTISONE SOD SUCCINATE 100 MG/2 ML VIAL IVPUSH SCH ×5 (01:19→23:11)
[2020-08-20] MEDS: VANCOMYCIN 250 MG/5 ML ORAL SOLUTION PO SCH ×4 (01:19→18:47)
[2020-08-20] MEDS: VALPROATE SODIUM 250 MG/5 ML UNIT DOSE CUP PO SCH ×3 (06:31→22:40)
[2020-08-20] MEDS ORDERED: PT OWN MED DRAWER 7, Y5N ONE ×5 (06:36→21:22)
[2020-08-20 06:54] LABS: BASO % 0.1 % (0-2.0); EOS % 0.1 % (0-4.5); HEMATOCRIT 38.8 % (32.4-45.2); HEMOGLOBIN 12.9 GM/dL (10.7-15.3); MCH 31.1 pg (25.7-33.7); MCHC 33.1 g/dl (32.0-36.0); MEAN CELL VOLUME 93.9 fl (80-96); MEAN PLT VOLUME 9.3 fl (7.5-11.1); MONO % 0.5 % (3.8-10.2); NEUT % 89.3 % (42.8-82.8); RBC 4.13 M/mm3 (3.60-5.2); RDW 20.3 % (11.6-15.6); WHITE BLOOD COUNT 22.7 K/mm3 (4.0-10.0)
[2020-08-20 07:00] LABS: PLATELET COUNT 18 K/MM3 (134-434)
[2020-08-20 07:16] LABS: CALCIUM 7.5 mg/dL (8.5-10.1)
[2020-08-20 07:17] LABS: ALBUMIN 1.6 g/dl (3.4-5.0); BLOOD UREA NITROGEN 15.6 mg/dL (7-18)
[2020-08-20 07:20] LABS: CREATININE 0.7 mg/dL (0.55-1.3); PHOSPHOROUS 2.9 mg/dL (2.5-4.9)
[2020-08-20 07:22] LABS: BILIRUBIN,TOTAL 1.2 mg/dL (0.2-1); TOT PROT 4.4 g/dl (6.4-8.2)
[2020-08-20] MEDS ORDERED: DEXTROSE 5%-WATER 100 ML IVPB ONE (09:07)
[2020-08-20 09:35] LABS: ANISOCYTOSIS 0; MACROCYTOSIS 0; PLATELET ESTIMATE DECREASED
[2020-08-20] MEDS: CEFTRIAXONE 2 GM in DEXTROSE 5%-WATER 100 ML IVPB SCH (09:46)
[2020-08-20] MEDS: PHENYLEPHRINE NS PREMIX 50,000 MCG/500 ML BAG CVP SCH (09:46)
[2020-08-20] MEDS: SODIUM CHLORIDE 0.45% 1,000 ML IV SCH (09:46)
[2020-08-20] MEDS: levETIRAcetam 500 MG/5 ML ORAL SOLUTION (UNIT-DOSE CUPS) PO SCH ×2 (09:46→22:22)
[2020-08-20] MEDS: PANTOPRAZOLE SODIUM 40 MG VIAL IVPUSH SCH (09:46)
[2020-08-20] MEDS: COLLAGENASE CLOSTRIDIUM HIST. 30 GRAMS TUBE TP SCH (09:46)
[2020-08-20] MEDS: NYSTATIN 100,000 UNIT/GM TOPICAL CREAM 15 GM TUBE TP SCH ×2 (11:42→22:22)
[2020-08-20] MEDS: LEVOTHYROXINE SODIUM 100 MCG VIAL IVPUSH SCH (12:00)
[2020-08-20 13:24] LABS: INR 1.18 (0.83-1.09); PROTHROMBIN TIME (PATIENT) 14.5 SEC (9.7-13.0)
[2020-08-20] MEDS ORDERED: FUROSEMIDE 40 MG/4 ML INJECTABLE VIAL IVPUSH ONE (13:50)
[2020-08-20] MEDS: DEXAMETHASONE 4 MG TABLET (FP) PO SCH (17:31)
[2020-08-20] MEDS: NOREPINEPHRINE D5W PREMIX 16,000 MCG/500 ML BAG IVPB SCH (22:21)
[2020-08-21] MEDS: VANCOMYCIN 250 MG/5 ML ORAL SOLUTION PO SCH ×4 (00:20→18:10)
[2020-08-21] MEDS ORDERED: INSULIN (NOVOLOG) ASPART 100 UNITS/ML 10ML VIAL ONE (05:56)
[2020-08-21] MEDS: NOREPINEPHRINE D5W PREMIX 16,000 MCG/500 ML BAG IVPB SCH (06:02)
[2020-08-21] MEDS: HYDROCORTISONE SOD SUCCINATE 100 MG/2 ML VIAL IVPUSH SCH (06:06)
[2020-08-21] MEDS: VALPROATE SODIUM 250 MG/5 ML UNIT DOSE CUP PO SCH ×3 (06:06→21:38)
[2020-08-21 07:11] LABS: BASO % 0.1 % (0-2.0); EOS % 0.1 % (0-4.5); HEMATOCRIT 36.3 % (32.4-45.2); LYMPH % 16.6 % (8-40); MCH 31.1 pg (25.7-33.7); MCHC 33.2 g/dl (32.0-36.0); MEAN CELL VOLUME 93.5 fl (80-96); MEAN PLT VOLUME 9.3 fl (7.5-11.1); MONO % 0.8 % (3.8-10.2); NEUT % 82.4 % (42.8-82.8); RBC 3.88 M/mm3 (3.60-5.2); RDW 19.3 % (11.6-15.6)
[2020-08-21 07:30] LABS: ALBUMIN 1.6 g/dl (3.4-5.0); CALCIUM 7.9 mg/dL (8.5-10.1); MAGNESIUM 2.1 mg/dL (1.8-2.4)
[2020-08-21 07:33] LABS: CREATININE 0.5 mg/dL (0.55-1.3); PHOSPHOROUS 2.9 mg/dL (2.5-4.9)
[2020-08-21 07:35] LABS: BILIRUBIN,TOTAL 0.9 mg/dL (0.2-1); TOT PROT 4.3 g/dl (6.4-8.2)
[2020-08-21 07:41] LABS: WHITE BLOOD COUNT 13.7 K/mm3 (4.0-10.0)
[2020-08-21 07:42] LABS: PLATELET COUNT 14 K/MM3 (134-434)
[2020-08-21] MEDS ORDERED: DEXTROSE 5%-WATER 100 ML IVPB ONE (08:32)
[2020-08-21] MEDS ORDERED: PT OWN MED DRAWER 7, Y5N ONE ×5 (08:40→21:40)
[2020-08-21] MEDS ORDERED: POTASSIUM CHLORIDE TABS 20 MEQ TABLET.ER (FP) PO ONE (08:45)
[2020-08-21] MEDS: KCL 10 MEQ IVPB 10 MEQ/100 ML INFUS.BAG IVPB SCH ×3 (08:54→11:10)
[2020-08-21] MEDS: DEXAMETHASONE 4 MG TABLET (FP) PO SCH (10:05)
[2020-08-21] MEDS: PANTOPRAZOLE SODIUM 40 MG VIAL IVPUSH SCH (10:06)
[2020-08-21] MEDS: levETIRAcetam 500 MG/5 ML ORAL SOLUTION (UNIT-DOSE CUPS) PO SCH ×2 (10:06→21:38)
[2020-08-21] MEDS: CEFTRIAXONE 2 GM in DEXTROSE 5%-WATER 100 ML IVPB SCH (10:07)
[2020-08-21] MEDS: NYSTATIN 100,000 UNIT/GM TOPICAL CREAM 15 GM TUBE TP SCH ×2 (10:07→21:39)
[2020-08-21] MEDS: COLLAGENASE CLOSTRIDIUM HIST. 30 GRAMS TUBE TP SCH (10:08)
[2020-08-21] MEDS: LEVOTHYROXINE SODIUM 100 MCG VIAL IVPUSH SCH (10:08)
[2020-08-21] MEDS ORDERED: ALBUMIN HUMAN 25% 12.5 GM/50 ML VIAL IVPB SCH (10:45)
[2020-08-21] MEDS ORDERED: ALBUMIN HUMAN 25% 12.5 GM/50 ML VIAL IVPB ONE ×2 (11:00→12:00)
[2020-08-21] MEDS ORDERED: FUROSEMIDE 40 MG/4 ML INJECTABLE VIAL IVPUSH ONE ×4 (11:15→12:30)
[2020-08-21 11:30] LABS: ANISOCYTOSIS 1+; MACROCYTOSIS 1+; PLATELET ESTIMATE DECREASED
[2020-08-21 13:09] LABS: INR 1.15 (0.83-1.09); PROTHROMBIN TIME (PATIENT) 13.9 SEC (9.7-13.0)
[2020-08-21 13:12] LABS: ACTIVATED PTT 28.3 SECONDS (25.2-36.5)
[2020-08-21] MEDS: PHENYLEPHRINE NS PREMIX 50,000 MCG/500 ML BAG CVP SCH (13:13)
[2020-08-21 21:29] LABS: BASO % 0.1 % (0-2.0); HEMATOCRIT 28.3 % (32.4-45.2); HEMOGLOBIN 9.5 GM/dL (10.7-15.3); LYMPH % 14.6 % (8-40); MCH 31.3 pg (25.7-33.7); MCHC 33.6 g/dl (32.0-36.0); MEAN PLT VOLUME 8.3 fl (7.5-11.1); MONO % 2.5 % (3.8-10.2); NEUT % 82.8 % (42.8-82.8); PLATELET COUNT 142 K/MM3 (134-434); RBC 3.05 M/mm3 (3.60-5.2); WHITE BLOOD COUNT 8.9 K/mm3 (4.0-10.0)
[2020-08-21 22:11] LABS: ANISOCYTOSIS 1+; MACROCYTOSIS 0; PLATELET ESTIMATE DECREASED
[2020-08-21] MEDS ORDERED: MELATONIN 5 MG TABLETS PO ONE (23:47)
[2020-08-22] MEDS ORDERED: ACETAMINOPHEN 1000 MG/100 ML VIAL (NON FORMULARY) IVPB ONE (01:23)
[2020-08-22] MEDS ORDERED: MELATONIN 5 MG TABLETS PO ONE (01:25)
[2020-08-22] MEDS ORDERED: MORPHINE SULFATE 2 MG/ML VIAL ONE (02:37)
[2020-08-22] MEDS ORDERED: FUROSEMIDE 40 MG/4 ML INJECTABLE VIAL IVPUSH ONE (02:40)
[2020-08-22] MEDS ORDERED: MORPHINE SULFATE 2 MG/ML VIAL IVPUSH ONE (02:45)
[2020-08-22] MEDS: NOREPINEPHRINE D5W PREMIX 16,000 MCG/500 ML BAG IVPB SCH ×2 (03:38→19:20)
[2020-08-22] MEDS ORDERED: DIGOXIN 0.125 MG TABLET (FP) PO ONE (05:45)
[2020-08-22] MEDS ORDERED: PT OWN MED DRAWER 7, Y5N ONE ×4 (05:50→21:05)
[2020-08-22] MEDS: VANCOMYCIN 250 MG/5 ML ORAL SOLUTION PO SCH ×4 (05:55→17:45)
[2020-08-22 07:06] LABS: BASO % 0.1 % (0-2.0); HEMATOCRIT 26.8 % (32.4-45.2); HEMOGLOBIN 9.1 GM/dL (10.7-15.3); LYMPH % 18.5 % (8-40); MCH 31.6 pg (25.7-33.7); MCHC 33.9 g/dl (32.0-36.0); MEAN CELL VOLUME 93.3 fl (80-96); MONO % 3.3 % (3.8-10.2); NEUT % 78.1 % (42.8-82.8); PLATELET COUNT 72 K/MM3 (134-434); RBC 2.88 M/mm3 (3.60-5.2); RDW 18.6 % (11.6-15.6); WHITE BLOOD COUNT 9.7 K/mm3 (4.0-10.0)
[2020-08-22 07:12] LABS: INR 1.09 (0.83-1.09); PROTHROMBIN TIME (PATIENT) 13.2 SEC (9.7-13.0)
[2020-08-22 07:13] LABS: ACTIVATED PTT 24.3 SECONDS (25.2-36.5)
[2020-08-22 07:29] LABS: CALCIUM 7.8 mg/dL (8.5-10.1)
[2020-08-22 07:30] LABS: BLOOD UREA NITROGEN 16.2 mg/dL (7-18); MAGNESIUM 1.9 mg/dL (1.8-2.4)
[2020-08-22 07:33] LABS: CREATININE 0.5 mg/dL (0.55-1.3)
[2020-08-22 07:34] LABS: PHOSPHOROUS 2.9 mg/dL (2.5-4.9)
[2020-08-22 07:35] LABS: BILIRUBIN,TOTAL 1.1 mg/dL (0.2-1); TOT PROT 4.5 g/dl (6.4-8.2)
[2020-08-22 07:39] LABS: ALBUMIN 2.1 g/dl (3.4-5.0)
[2020-08-22] MEDS ORDERED: METOPROLOL TARTRATE 5 MG/5 ML VIAL IVPUSH ONE (08:30)
[2020-08-22] MEDS: VALPROATE SODIUM 250 MG/5 ML UNIT DOSE CUP PO SCH ×3 (08:41→22:13)
[2020-08-22] MEDS ORDERED: DEXTROSE 5%-WATER 100 ML IVPB ONE (08:49)
[2020-08-22] MEDS: PANTOPRAZOLE SODIUM 40 MG VIAL IVPUSH SCH ×2 (08:53→10:16)
[2020-08-22] MEDS ORDERED: DIGOXIN 0.5 MG/2 ML AMPUL IVPUSH ONE (10:00)
[2020-08-22] MEDS: LEVOTHYROXINE SODIUM 100 MCG VIAL IVPUSH SCH (10:10)
[2020-08-22] MEDS: levETIRAcetam 500 MG/5 ML ORAL SOLUTION (UNIT-DOSE CUPS) PO SCH ×2 (10:10→22:13)
[2020-08-22 10:12] LABS: ANISOCYTOSIS 2+; MACROCYTOSIS 2+; PLATELET ESTIMATE DECREASED
[2020-08-22] MEDS: DEXAMETHASONE 4 MG TABLET (FP) PO SCH (10:15)
[2020-08-22] MEDS: NYSTATIN 100,000 UNIT/GM TOPICAL CREAM 15 GM TUBE TP SCH ×2 (10:16→22:26)
[2020-08-22] MEDS: COLLAGENASE CLOSTRIDIUM HIST. 30 GRAMS TUBE TP SCH (10:18)
[2020-08-22] MEDS: CEFTRIAXONE 2 GM in DEXTROSE 5%-WATER 100 ML IVPB SCH (10:18)
[2020-08-22] MEDS: PHENYLEPHRINE NS PREMIX 50,000 MCG/500 ML BAG CVP SCH (11:51)
[2020-08-22] MEDS ORDERED: ACETAMINOPHEN 325 MG TABLET (FP) PO ONE (15:18)
[2020-08-22] MEDS: MORPHINE SULFATE 2 MG/ML VIAL IVPUSH PRN (22:25)
[2020-08-23] MEDS: VANCOMYCIN 250 MG/5 ML ORAL SOLUTION PO SCH ×4 (06:20→17:43)
[2020-08-23] MEDS ORDERED: PT OWN MED DRAWER 7, Y5N ONE ×2 (06:43→09:28)
[2020-08-23 07:32] LABS: INR 1.08 (0.83-1.09); PROTHROMBIN TIME (PATIENT) 13.3 SEC (9.7-13.0)
[2020-08-23 07:40] LABS: BASO % 0.1 % (0-2.0); HEMATOCRIT 29.3 % (32.4-45.2); HEMOGLOBIN 9.6 GM/dL (10.7-15.3); LYMPH % 13.5 % (8-40); MCH 31.1 pg (25.7-33.7); MCHC 32.7 g/dl (32.0-36.0); MEAN CELL VOLUME 94.9 fl (80-96); MEAN PLT VOLUME 10.6 fl (7.5-11.1); MONO % 4.1 % (3.8-10.2); NEUT % 82.3 % (42.8-82.8); RBC 3.09 M/mm3 (3.60-5.2); RDW 18.9 % (11.6-15.6); WHITE BLOOD COUNT 16.5 K/mm3 (4.0-10.0)
[2020-08-23 07:46] LABS: PLATELET COUNT 33 K/MM3 (134-434)
[2020-08-23 07:52] LABS: ALBUMIN 2.2 g/dl (3.4-5.0); BLOOD UREA NITROGEN 18.7 mg/dL (7-18); CALCIUM 8.1 mg/dL (8.5-10.1); MAGNESIUM 2.1 mg/dL (1.8-2.4)
[2020-08-23 07:55] LABS: CREATININE 0.7 mg/dL (0.55-1.3)
[2020-08-23 07:56] LABS: BILIRUBIN,TOTAL 0.6 mg/dL (0.2-1); TOT PROT 4.8 g/dl (6.4-8.2)
[2020-08-23 07:58] LABS: PHOSPHOROUS 2.8 mg/dL (2.5-4.9)
[2020-08-23] MEDS ORDERED: DEXTROSE 5%-WATER 100 ML IVPB ONE (08:36)
[2020-08-23 09:24] LABS: ANISOCYTOSIS 0; MACROCYTOSIS 0; PLATELET ESTIMATE DECREASED
[2020-08-23] MEDS: CEFTRIAXONE 2 GM in DEXTROSE 5%-WATER 100 ML IVPB SCH (09:24)
[2020-08-23] MEDS: PANTOPRAZOLE SODIUM 40 MG VIAL IVPUSH SCH (09:26)
[2020-08-23] MEDS: DIGOXIN 0.125 MG TABLET (FP) PO SCH (09:27)
[2020-08-23] MEDS: VALPROATE SODIUM 250 MG/5 ML UNIT DOSE CUP PO SCH ×3 (09:30→22:07)
[2020-08-23] MEDS: levETIRAcetam 500 MG/5 ML ORAL SOLUTION (UNIT-DOSE CUPS) PO SCH ×2 (09:31→22:07)
[2020-08-23] MEDS: NYSTATIN 100,000 UNIT/GM TOPICAL CREAM 15 GM TUBE TP SCH ×2 (09:32→22:07)
[2020-08-23] MEDS: COLLAGENASE CLOSTRIDIUM HIST. 30 GRAMS TUBE TP SCH (09:33)
[2020-08-23] MEDS: LEVOTHYROXINE SODIUM 100 MCG VIAL IVPUSH SCH (09:37)
[2020-08-23] MEDS ORDERED: VASOPRESSIN 20 UNITS/ML VIAL IV ONE (10:25)
[2020-08-23] MEDS ORDERED: VASOPRESSIN 40 UNITS in SODIUM CHLORIDE 98 ML IVPB SCH (10:30)
[2020-08-23] MEDS: MORPHINE SULFATE 2 MG/ML VIAL IVPUSH PRN (10:32)
[2020-08-23 11:22] VITALS: BMI 23.1
[2020-08-23] MEDS: PHENYLEPHRINE NS PREMIX 50,000 MCG/500 ML BAG CVP SCH (11:49)
[2020-08-23] MEDS: VASOPRESSIN 40 UNITS in SODIUM CHLORIDE 98 ML IVPB SCH (11:52)
[2020-08-23] MEDS ORDERED: DIGOXIN 0.125 MG TABLET (FP) PO ONE (23:37)
[2020-08-24] MEDS: VANCOMYCIN 250 MG/5 ML ORAL SOLUTION PO SCH ×4 (00:57→17:56)
[2020-08-24] MEDS: VALPROATE SODIUM 250 MG/5 ML UNIT DOSE CUP PO SCH ×3 (06:12→21:38)
[2020-08-24 07:31] LABS: BASO % 0.2 % (0-2.0); EOS % 0.3 % (0-4.5); HEMATOCRIT 23.2 % (32.4-45.2); LYMPH % 28.1 % (8-40); MCH 32.1 pg (25.7-33.7); MCHC 34.6 g/dl (32.0-36.0); MEAN CELL VOLUME 92.8 fl (80-96); MEAN PLT VOLUME 9.3 fl (7.5-11.1); MONO % 1.9 % (3.8-10.2); NEUT % 69.5 % (42.8-82.8); RDW 17.8 % (11.6-15.6); WHITE BLOOD COUNT 7.5 K/mm3 (4.0-10.0)
[2020-08-24 07:35] LABS: INR 1.12 (0.83-1.09); PROTHROMBIN TIME (PATIENT) 13.5 SEC (9.7-13.0)
[2020-08-24 07:37] LABS: ACTIVATED PTT 24.5 SECONDS (25.2-36.5)
[2020-08-24 07:52] LABS: CALCIUM 7.7 mg/dL (8.5-10.1)
[2020-08-24 07:54] LABS: ALBUMIN 1.8 g/dl (3.4-5.0); MAGNESIUM 1.8 mg/dL (1.8-2.4)
[2020-08-24 07:56] LABS: CREATININE 0.3 mg/dL (0.55-1.3); PHOSPHOROUS 2.1 mg/dL (2.5-4.9)
[2020-08-24 07:58] LABS: BILIRUBIN,TOTAL 0.5 mg/dL (0.2-1); TOT PROT 4.1 g/dl (6.4-8.2)
[2020-08-24 08:39] LABS: PLATELET COUNT 17 K/MM3 (134-434)
[2020-08-24 09:24] LABS: ANISOCYTOSIS 1+; MACROCYTOSIS 1+; PLATELET ESTIMATE DECREASED
[2020-08-24] MEDS ORDERED: PT OWN MED DRAWER 7, Y5N ONE (09:38)
[2020-08-24] MEDS ORDERED: DEXTROSE 5%-WATER 100 ML IVPB ONE (09:39)
[2020-08-24] MEDS: CEFTRIAXONE 2 GM in DEXTROSE 5%-WATER 100 ML IVPB SCH (09:40)
[2020-08-24] MEDS: PANTOPRAZOLE SODIUM 40 MG VIAL IVPUSH SCH (09:49)
[2020-08-24] MEDS: NYSTATIN 100,000 UNIT/GM TOPICAL CREAM 15 GM TUBE TP SCH ×2 (09:49→21:39)
[2020-08-24] MEDS: COLLAGENASE CLOSTRIDIUM HIST. 30 GRAMS TUBE TP SCH (09:49)
[2020-08-24] MEDS: LEVOTHYROXINE SODIUM 100 MCG VIAL IVPUSH SCH (09:51)
[2020-08-24] MEDS: MULTIVIT-MINERALS ORAL LIQUID PO SCH (11:04)
[2020-08-24] MEDS: levETIRAcetam 500 MG/5 ML ORAL SOLUTION (UNIT-DOSE CUPS) PO SCH ×2 (11:05→21:39)
[2020-08-24] MEDS: DIGOXIN 0.125 MG TABLET (FP) PO SCH (11:07)
[2020-08-24] MEDS: VASOPRESSIN 40 UNITS in SODIUM CHLORIDE 98 ML IVPB SCH (17:53)
[2020-08-24 17:55] LABS: HEMOGLOBIN 7.2 GM/dL (10.7-15.3); MCH 30.8 pg (25.7-33.7); MCHC 32.9 g/dl (32.0-36.0); MEAN CELL VOLUME 93.6 fl (80-96); MEAN PLT VOLUME 10.4 fl (7.5-11.1); RBC 2.35 M/mm3 (3.60-5.2); RDW 17.9 % (11.6-15.6); WHITE BLOOD COUNT 8.3 K/mm3 (4.0-10.0)
[2020-08-24 17:57] LABS: PLATELET COUNT 26 K/MM3 (134-434)
[2020-08-24] MEDS ORDERED: ACETAMINOPHEN 1000 MG/100 ML VIAL (NON FORMULARY) IVPB PRN (19:23)
[2020-08-24] MEDS: MORPHINE SULFATE 2 MG/ML VIAL IVPUSH PRN (21:36)
[2020-08-25] MEDS: VANCOMYCIN 250 MG/5 ML ORAL SOLUTION PO SCH ×3 (00:53→12:25)
[2020-08-25] MEDS: VALPROATE SODIUM 250 MG/5 ML UNIT DOSE CUP PO SCH ×3 (05:54→21:53)
[2020-08-25 07:14] LABS: EOS % 1.1 % (0-4.5); HEMATOCRIT 21.4 % (32.4-45.2); HEMOGLOBIN 7.3 GM/dL (10.7-15.3); LYMPH % 28.8 % (8-40); MCH 31.5 pg (25.7-33.7); MCHC 33.9 g/dl (32.0-36.0); MEAN CELL VOLUME 93.1 fl (80-96); MEAN PLT VOLUME 10.4 fl (7.5-11.1); MONO % 3.9 % (3.8-10.2); NEUT % 66.2 % (42.8-82.8); RDW 17.7 % (11.6-15.6); WHITE BLOOD COUNT 7.4 K/mm3 (4.0-10.0)
[2020-08-25 07:18] LABS: PLATELET COUNT 36 K/MM3 (134-434)
[2020-08-25 07:22] LABS: INR 1.16 (0.83-1.09); PROTHROMBIN TIME (PATIENT) 14.2 SEC (9.7-13.0)
[2020-08-25 07:25] LABS: ACTIVATED PTT 24.5 SECONDS (25.2-36.5)
[2020-08-25 08:30] LABS: ALBUMIN 1.7 g/dl (3.4-5.0); BLOOD UREA NITROGEN 15.9 mg/dL (7-18)
[2020-08-25 08:31] LABS: MAGNESIUM 2.1 mg/dL (1.8-2.4)
[2020-08-25 08:34] LABS: CREATININE 0.2 mg/dL (0.55-1.3); PHOSPHOROUS 2.8 mg/dL (2.5-4.9)
[2020-08-25 08:35] LABS: BILIRUBIN,TOTAL 0.3 mg/dL (0.2-1)
[2020-08-25] MEDS ORDERED: PT OWN MED DRAWER 7, Y5N ONE ×3 (09:37→21:29)
[2020-08-25] MEDS ORDERED: DEXTROSE 5%-WATER 100 ML IVPB ONE (09:38)
[2020-08-25] MEDS: MULTIVIT-MINERALS ORAL LIQUID PO SCH (09:42)
[2020-08-25] MEDS: levETIRAcetam 500 MG/5 ML ORAL SOLUTION (UNIT-DOSE CUPS) PO SCH ×2 (09:43→21:53)
[2020-08-25] MEDS: PANTOPRAZOLE SODIUM 40 MG VIAL IVPUSH SCH (09:43)
[2020-08-25] MEDS: DIGOXIN 0.125 MG TABLET (FP) PO SCH (09:43)
[2020-08-25] MEDS: NYSTATIN 100,000 UNIT/GM TOPICAL CREAM 15 GM TUBE TP SCH ×2 (09:43→21:53)
[2020-08-25] MEDS: COLLAGENASE CLOSTRIDIUM HIST. 30 GRAMS TUBE TP SCH (09:44)
[2020-08-25] MEDS: CEFTRIAXONE 2 GM in DEXTROSE 5%-WATER 100 ML IVPB SCH (09:44)
[2020-08-25 11:47] LABS: RETICULOCYTES 0.72 % (0.5-1.5)
[2020-08-25] MEDS: VASOPRESSIN 40 UNITS in SODIUM CHLORIDE 98 ML IVPB SCH (14:21)
[2020-08-25] MEDS ORDERED: levETIRAcetam 500 MG/5 ML INJECTION VIAL IVPB ONE (21:53)
[2020-08-25] MEDS: MORPHINE SULFATE 2 MG/ML VIAL IVPUSH PRN (22:06)
[2020-08-26] MEDS ORDERED: LORazepam 2 MG/ML SDV VIAL IVPUSH ONE (00:22)
[2020-08-26] MEDS: VALPROATE SODIUM 250 MG/5 ML UNIT DOSE CUP PO SCH ×3 (06:52→21:46)
[2020-08-26] MEDS: LEVOTHYROXINE NA 75 MCG TABLET (FP) PO SCH (06:52)
[2020-08-26 07:37] LABS: EOS % 0.6 % (0-4.5); HEMATOCRIT 19.8 % (32.4-45.2); LYMPH % 26.5 % (8-40); MCHC 34.3 g/dl (32.0-36.0); MEAN CELL VOLUME 93.3 fl (80-96); MEAN PLT VOLUME 10.3 fl (7.5-11.1); MONO % 5.9 % (3.8-10.2); PLATELET COUNT 64 K/MM3 (134-434); RBC 2.12 M/mm3 (3.60-5.2); RDW 17.8 % (11.6-15.6); WHITE BLOOD COUNT 7.7 K/mm3 (4.0-10.0)
[2020-08-26 07:43] LABS: INR 1.18 (0.83-1.09); PROTHROMBIN TIME (PATIENT) 14.2 SEC (9.7-13.0)
[2020-08-26 07:45] LABS: ACTIVATED PTT 24.9 SECONDS (25.2-36.5)
[2020-08-26 07:57] LABS: CALCIUM 7.6 mg/dL (8.5-10.1)
[2020-08-26 07:58] LABS: ALBUMIN 1.6 g/dl (3.4-5.0); MAGNESIUM 1.9 mg/dL (1.8-2.4)
[2020-08-26 08:01] LABS: CREATININE 0.2 mg/dL (0.55-1.3)
[2020-08-26 08:02] LABS: BILIRUBIN,TOTAL 0.3 mg/dL (0.2-1); PHOSPHOROUS 3.1 mg/dL (2.5-4.9); TOT PROT 4.1 g/dl (6.4-8.2)
[2020-08-26] MEDS ORDERED: DEXTROSE 5%-WATER 100 ML IVPB ONE (11:21)
[2020-08-26] MEDS ORDERED: PT OWN MED DRAWER 7, Y5N ONE ×5 (11:22→22:01)
[2020-08-26] MEDS: MULTIVIT-MINERALS ORAL LIQUID PO SCH (11:25)
[2020-08-26 11:26] LABS: ANISOCYTOSIS 1+; MACROCYTOSIS 0; PLATELET ESTIMATE DECREASED; TEAR DROP CELLS 1+
[2020-08-26] MEDS: levETIRAcetam 500 MG/5 ML ORAL SOLUTION (UNIT-DOSE CUPS) PO SCH ×2 (11:26→21:46)
[2020-08-26] MEDS: DIGOXIN 0.125 MG TABLET (FP) PO SCH (11:27)
[2020-08-26] MEDS: CEFTRIAXONE 2 GM in DEXTROSE 5%-WATER 100 ML IVPB SCH (11:28)
[2020-08-26] MEDS: PANTOPRAZOLE SODIUM 40 MG VIAL IVPUSH SCH (11:30)
[2020-08-26] MEDS: NYSTATIN 100,000 UNIT/GM TOPICAL CREAM 15 GM TUBE TP SCH ×2 (12:00→21:46)
[2020-08-26] MEDS ORDERED: FUROSEMIDE 40 MG/4 ML INJECTABLE VIAL IVPUSH SCH (12:00)
[2020-08-26] MEDS: VANCOMYCIN 250 MG/5 ML ORAL SOLUTION PO SCH ×3 (15:01→23:29)
[2020-08-26] MEDS: COLLAGENASE CLOSTRIDIUM HIST. 30 GRAMS TUBE TP SCH (18:05)
[2020-08-26] MEDS: VASOPRESSIN 40 UNITS in SODIUM CHLORIDE 98 ML IVPB SCH (18:05)
[2020-08-26 20:18] LABS: HEMOGLOBIN 6.8 GM/dL (10.7-15.3)
[2020-08-26] MEDS: OLANZapine 5 MG TABLET PO SCH (21:47)
[2020-08-27] MEDS ORDERED: PT OWN MED DRAWER 7, Y5N ONE ×4 (05:53→20:22)
[2020-08-27] MEDS: VANCOMYCIN 250 MG/5 ML ORAL SOLUTION PO SCH ×4 (05:54→23:28)
[2020-08-27] MEDS: VALPROATE SODIUM 250 MG/5 ML UNIT DOSE CUP PO SCH ×3 (05:54→21:00)
[2020-08-27] MEDS: LEVOTHYROXINE NA 75 MCG TABLET (FP) PO SCH (05:59)
[2020-08-27 07:02] LABS: BASO % 0.2 % (0-2.0); EOS % 0.8 % (0-4.5); HEMATOCRIT 26.4 % (32.4-45.2); LYMPH % 28.6 % (8-40); MCH 31.6 pg (25.7-33.7); MEAN CELL VOLUME 92.9 fl (80-96); MEAN PLT VOLUME 9.9 fl (7.5-11.1); MONO % 5.7 % (3.8-10.2); NEUT % 64.7 % (42.8-82.8); PLATELET COUNT 91 K/MM3 (134-434); RBC 2.85 M/mm3 (3.60-5.2); RDW 16.1 % (11.6-15.6)
[2020-08-27 07:12] LABS: INR 1.14 (0.83-1.09)
[2020-08-27 07:14] LABS: ACTIVATED PTT 25.4 SECONDS (25.2-36.5)
[2020-08-27 07:23] LABS: BLOOD UREA NITROGEN 9.1 mg/dL (7-18)
[2020-08-27 07:24] LABS: ALBUMIN 1.6 g/dl (3.4-5.0); MAGNESIUM 1.9 mg/dL (1.8-2.4)
[2020-08-27 07:26] LABS: CREATININE 0.4 mg/dL (0.55-1.3)
[2020-08-27 07:27] LABS: BILIRUBIN,TOTAL 0.2 mg/dL (0.2-1); PHOSPHOROUS 3.1 mg/dL (2.5-4.9)
[2020-08-27 07:28] LABS: TOT PROT 4.2 g/dl (6.4-8.2)
[2020-08-27] MEDS ORDERED: POTASSIUM CHLORIDE TABS 20 MEQ TABLET.ER (FP) PO ONE ×2 (08:00→15:15)
[2020-08-27] MEDS: NYSTATIN 100,000 UNIT/GM TOPICAL CREAM 15 GM TUBE TP SCH ×2 (10:00→21:00)
[2020-08-27] MEDS: MULTIVIT-MINERALS ORAL LIQUID PO SCH (10:29)
[2020-08-27] MEDS: PANTOPRAZOLE SODIUM 40 MG VIAL IVPUSH SCH (10:30)
[2020-08-27] MEDS: levETIRAcetam 500 MG/5 ML ORAL SOLUTION (UNIT-DOSE CUPS) PO SCH ×2 (10:30→21:00)
[2020-08-27] MEDS: COLLAGENASE CLOSTRIDIUM HIST. 30 GRAMS TUBE TP SCH (11:00)
[2020-08-27] MEDS ORDERED: ALBUMIN HUMAN 25% 100 ML VIAL IVPB ONE (11:12)
[2020-08-27] MEDS ORDERED: ALBUMIN HUMAN 25% 100 ML VIAL IVPB SCH (11:15)
[2020-08-27] MEDS ORDERED: FUROSEMIDE 40 MG/4 ML INJECTABLE VIAL IVPUSH ONE (12:00)
[2020-08-27] MEDS: MIDODRINE HCL 5 MG TABLET PO SCH ×3 (15:08→17:55)
[2020-08-27] MEDS: DIGOXIN 0.125 MG TABLET (FP) PO SCH (15:08)
[2020-08-27] MEDS: VASOPRESSIN 40 UNITS in SODIUM CHLORIDE 98 ML IVPB SCH (15:09)
[2020-08-27] MEDS: OLANZapine 5 MG TABLET PO SCH (21:00)
[2020-08-27] MEDS: MORPHINE SULFATE 2 MG/ML VIAL IVPUSH PRN (22:25)
[2020-08-28] MEDS ORDERED: PT OWN MED DRAWER 7, Y5N ONE ×2 (04:40→20:37)
[2020-08-28] MEDS: VALPROATE SODIUM 250 MG/5 ML UNIT DOSE CUP PO SCH ×3 (05:09→21:05)
[2020-08-28] MEDS: VANCOMYCIN 250 MG/5 ML ORAL SOLUTION PO SCH ×2 (05:09→12:47)
[2020-08-28] MEDS: LEVOTHYROXINE NA 75 MCG TABLET (FP) PO SCH (06:21)
[2020-08-28 07:30] LABS: HEMATOCRIT 30.2 % (32.4-45.2); HEMOGLOBIN 10.2 GM/dL (10.7-15.3); MCH 31.5 pg (25.7-33.7); MCHC 33.7 g/dl (32.0-36.0); MEAN CELL VOLUME 93.4 fl (80-96); MEAN PLT VOLUME 9.9 fl (7.5-11.1); PLATELET COUNT 121 K/MM3 (134-434); RBC 3.23 M/mm3 (3.60-5.2); RDW 16.5 % (11.6-15.6); WHITE BLOOD COUNT 10.7 K/mm3 (4.0-10.0)
[2020-08-28 07:42] LABS: INR 1.15 (0.83-1.09); PROTHROMBIN TIME (PATIENT) 13.9 SEC (9.7-13.0)
[2020-08-28 07:44] LABS: ACTIVATED PTT 25.5 SECONDS (25.2-36.5)
[2020-08-28 07:57] LABS: MAGNESIUM 1.9 mg/dL (1.8-2.4)
[2020-08-28 08:01] LABS: PHOSPHOROUS 3.9 mg/dL (2.5-4.9)
[2020-08-28] MEDS ORDERED: SODIUM CHLORIDE 500 ML IV STA (08:49)
[2020-08-28] MEDS: MIDODRINE HCL 5 MG TABLET PO SCH ×3 (09:52→16:44)
[2020-08-28] MEDS: levETIRAcetam 500 MG/5 ML ORAL SOLUTION (UNIT-DOSE CUPS) PO SCH ×2 (09:54→21:05)
[2020-08-28] MEDS: DIGOXIN 0.125 MG TABLET (FP) PO SCH (09:57)
[2020-08-28] MEDS: MULTIVIT-MINERALS ORAL LIQUID PO SCH (09:57)
[2020-08-28] MEDS: NYSTATIN 100,000 UNIT/GM TOPICAL CREAM 15 GM TUBE TP SCH ×2 (09:58→22:00)
[2020-08-28] MEDS: COLLAGENASE CLOSTRIDIUM HIST. 30 GRAMS TUBE TP SCH (09:58)
[2020-08-28] MEDS ORDERED: LACTOBACILLUS ACIDOPHILUS 1 TABLET PO SCH (11:30)
[2020-08-28 12:07] LABS: DRVVT - 38.4 sec (0.0-47.0)
[2020-08-28] MEDS ORDERED: POTASSIUM CHLORIDE ORAL LIQUID 20 MEQ/15 ML PO ONE (17:17)
[2020-08-28] MEDS ORDERED: MORPHINE SULFATE 2 MG/ML VIAL IVPUSH PRN (19:21)
[2020-08-28] MEDS: OLANZapine 5 MG TABLET PO SCH (21:05)
[2020-08-29] MEDS: VANCOMYCIN 250 MG/5 ML ORAL SOLUTION PO SCH ×4 (00:05→17:01)
[2020-08-29] MEDS: VALPROATE SODIUM 250 MG/5 ML UNIT DOSE CUP PO SCH ×3 (05:23→21:38)
[2020-08-29] MEDS: LEVOTHYROXINE NA 75 MCG TABLET (FP) PO SCH (06:33)
[2020-08-29] MEDS ORDERED: PANTOPRAZOLE SODIUM 40 MG VIAL IVPUSH SCH (10:00)
[2020-08-29] MEDS ORDERED: PT OWN MED DRAWER 7, Y5N ONE ×2 (10:39→21:07)
[2020-08-29] MEDS: MIDODRINE HCL 5 MG TABLET PO SCH ×3 (12:06→17:01)
[2020-08-29] MEDS: LACTOBACILLUS ACIDOPHILUS 1 TABLET PO SCH (12:06)
[2020-08-29] MEDS: DIGOXIN 0.125 MG TABLET (FP) PO SCH (12:07)
[2020-08-29] MEDS: levETIRAcetam 500 MG/5 ML ORAL SOLUTION (UNIT-DOSE CUPS) PO SCH ×2 (12:08→21:38)
[2020-08-29] MEDS: NYSTATIN 100,000 UNIT/GM TOPICAL CREAM 15 GM TUBE TP SCH ×2 (12:09→21:38)
[2020-08-29] MEDS: COLLAGENASE CLOSTRIDIUM HIST. 30 GRAMS TUBE TP SCH (12:09)
[2020-08-29] MEDS: MULTIVIT-MINERALS ORAL LIQUID PO SCH (12:11)
[2020-08-29 12:48] LABS: BASO % 0.4 % (0-2.0); EOS % 0.4 % (0-4.5); HEMATOCRIT 33.4 % (32.4-45.2); HEMOGLOBIN 11.2 GM/dL (10.7-15.3); LYMPH % 23.7 % (8-40); MCH 31.3 pg (25.7-33.7); MCHC 33.5 g/dl (32.0-36.0); MEAN CELL VOLUME 93.6 fl (80-96); MEAN PLT VOLUME 9.8 fl (7.5-11.1); MONO % 4.8 % (3.8-10.2); NEUT % 70.7 % (42.8-82.8); PLATELET COUNT 109 K/MM3 (134-434); RBC 3.57 M/mm3 (3.60-5.2); RDW 16.1 % (11.6-15.6); WHITE BLOOD COUNT 13.5 K/mm3 (4.0-10.0)
[2020-08-29 13:25] LABS: PLATELET ESTIMATE DECREASED
[2020-08-29 14:05] LABS: BILIRUBIN,TOTAL 0.3 mg/dL (0.2-1); BLOOD UREA NITROGEN 7.3 mg/dL (7-18); CREATININE 0.3 mg/dL (0.55-1.3); MAGNESIUM 2.1 mg/dL (1.8-2.4); TOT PROT 5.2 g/dl (6.4-8.2)
[2020-08-29 20:05] LABS: INR 1.21 (0.83-1.09); PROTHROMBIN TIME (PATIENT) 14.6 SEC (9.7-13.0)
[2020-08-29 20:08] LABS: ACTIVATED PTT 26.5 SECONDS (25.2-36.5)
[2020-08-29] MEDS: OLANZapine 5 MG TABLET PO SCH (21:38)
[2020-08-30] MEDS: VANCOMYCIN 250 MG/5 ML ORAL SOLUTION PO SCH ×4 (00:28→17:38)
[2020-08-30] MEDS ORDERED: PT OWN MED DRAWER 7, Y5N ONE ×2 (05:55→20:38)
[2020-08-30] MEDS: VALPROATE SODIUM 250 MG/5 ML UNIT DOSE CUP PO SCH ×3 (06:31→21:10)
[2020-08-30] MEDS: LEVOTHYROXINE NA 75 MCG TABLET (FP) PO SCH (06:33)
[2020-08-30] MEDS: PANTOPRAZOLE 40 MG TABLET PO SCH (10:30)
[2020-08-30] MEDS: LACTOBACILLUS ACIDOPHILUS 1 TABLET PO SCH (10:30)
[2020-08-30] MEDS: MIDODRINE HCL 5 MG TABLET PO SCH ×3 (10:30→17:39)
[2020-08-30] MEDS: levETIRAcetam 500 MG/5 ML ORAL SOLUTION (UNIT-DOSE CUPS) PO SCH ×2 (10:31→21:10)
[2020-08-30] MEDS: DIGOXIN 0.125 MG TABLET (FP) PO SCH (10:31)
[2020-08-30] MEDS: MULTIVIT-MINERALS ORAL LIQUID PO SCH (10:31)
[2020-08-30] MEDS: COLLAGENASE CLOSTRIDIUM HIST. 30 GRAMS TUBE TP SCH (10:32)
[2020-08-30] MEDS: NYSTATIN 100,000 UNIT/GM TOPICAL CREAM 15 GM TUBE TP SCH ×2 (10:32→21:12)
[2020-08-30] MEDS: OLANZapine 5 MG TABLET PO SCH (21:12)
[2020-08-31] MEDS: VANCOMYCIN 250 MG/5 ML ORAL SOLUTION PO SCH ×5 (00:15→17:55)
[2020-08-31] MEDS ORDERED: PT OWN MED DRAWER 7, Y5N ONE ×4 (05:10→21:22)
[2020-08-31] MEDS: VALPROATE SODIUM 250 MG/5 ML UNIT DOSE CUP PO SCH ×3 (05:24→22:47)
[2020-08-31] MEDS: LEVOTHYROXINE NA 75 MCG TABLET (FP) PO SCH (07:00)
[2020-08-31] MEDS: MIDODRINE HCL 5 MG TABLET PO SCH ×4 (07:51→17:55)
[2020-08-31] MEDS: PANTOPRAZOLE SODIUM 40 MG VIAL IVPUSH SCH (07:51)
[2020-08-31] MEDS: MULTIVIT-MINERALS ORAL LIQUID PO SCH (10:58)
[2020-08-31] MEDS: LACTOBACILLUS ACIDOPHILUS 1 TABLET PO SCH (10:58)
[2020-08-31] MEDS: DIGOXIN 0.125 MG TABLET (FP) PO SCH (10:59)
[2020-08-31] MEDS: levETIRAcetam 500 MG/5 ML ORAL SOLUTION (UNIT-DOSE CUPS) PO SCH ×2 (10:59→22:47)
[2020-08-31] MEDS: NYSTATIN 100,000 UNIT/GM TOPICAL CREAM 15 GM TUBE TP SCH ×2 (10:59→22:48)
[2020-08-31] MEDS: PANTOPRAZOLE 40 MG TABLET PO SCH (11:00)
[2020-08-31] MEDS: COLLAGENASE CLOSTRIDIUM HIST. 30 GRAMS TUBE TP SCH (11:00)
[2020-08-31] MEDS ORDERED: oxyCODONE HCL 5 MG TABLET PO PRN (11:07)
[2020-08-31] MEDS ORDERED: ACETAMINOPHEN 325 MG TABLET (FP) PO PRN (11:19)
[2020-08-31] MEDS: MINERAL OIL/PET HY-PHL TOPICAL OINTMENT 454 GM JAR TP SCH ×2 (14:38→22:46)
[2020-08-31] MEDS: OLANZapine 5 MG TABLET PO SCH (22:47)
[2020-09-01] MEDS: VANCOMYCIN 250 MG/5 ML ORAL SOLUTION PO SCH ×4 (00:19→18:13)
[2020-09-01] MEDS ORDERED: PT OWN MED DRAWER 7, Y5N ONE ×3 (05:12→21:03)
[2020-09-01] MEDS: VALPROATE SODIUM 250 MG/5 ML UNIT DOSE CUP PO SCH ×3 (05:23→21:59)
[2020-09-01] MEDS: LEVOTHYROXINE NA 75 MCG TABLET (FP) PO SCH (06:04)
[2020-09-01 08:25] LABS: BASO % 0.5 % (0-2.0); EOS % 0.6 % (0-4.5); HEMATOCRIT 28.8 % (32.4-45.2); HEMOGLOBIN 9.7 GM/dL (10.7-15.3); LYMPH % 41.7 % (8-40); MCH 31.6 pg (25.7-33.7); MCHC 33.5 g/dl (32.0-36.0); MEAN CELL VOLUME 94.4 fl (80-96); MEAN PLT VOLUME 9.6 fl (7.5-11.1); MONO % 8.4 % (3.8-10.2); NEUT % 48.8 % (42.8-82.8); PLATELET COUNT 70 K/MM3 (134-434); RBC 3.06 M/mm3 (3.60-5.2); RDW 16.3 % (11.6-15.6); WHITE BLOOD COUNT 5.5 K/mm3 (4.0-10.0)
[2020-09-01 08:44] LABS: CALCIUM 7.6 mg/dL (8.5-10.1)
[2020-09-01 08:45] LABS: ALBUMIN 1.6 g/dl (3.4-5.0); BLOOD UREA NITROGEN 6.2 mg/dL (7-18)
[2020-09-01 08:46] LABS: BILIRUBIN,TOTAL 0.2 mg/dL (0.2-1); TOT PROT 4.7 g/dl (6.4-8.2)
[2020-09-01 08:48] LABS: CREATININE 0.3 mg/dL (0.55-1.3)
[2020-09-01] MEDS: levETIRAcetam 500 MG/5 ML ORAL SOLUTION (UNIT-DOSE CUPS) PO SCH ×2 (10:18→21:59)
[2020-09-01] MEDS: LACTOBACILLUS ACIDOPHILUS 1 TABLET PO SCH (10:20)
[2020-09-01] MEDS: NYSTATIN 100,000 UNIT/GM TOPICAL CREAM 15 GM TUBE TP SCH ×2 (10:20→22:00)
[2020-09-01] MEDS: DIGOXIN 0.125 MG TABLET (FP) PO SCH (10:20)
[2020-09-01] MEDS: MULTIVITAMINS (DAILY MVI) TABLET (FP) PO SCH (10:21)
[2020-09-01] MEDS: MIDODRINE HCL 5 MG TABLET PO SCH ×3 (10:21→18:13)
[2020-09-01] MEDS: PANTOPRAZOLE 40 MG TABLET PO SCH (10:21)
[2020-09-01] MEDS: COLLAGENASE CLOSTRIDIUM HIST. 30 GRAMS TUBE TP SCH ×2 (10:21→22:01)
[2020-09-01] MEDS: MINERAL OIL/PET HY-PHL TOPICAL OINTMENT 454 GM JAR TP SCH ×2 (10:29→22:00)
[2020-09-01] MEDS ORDERED: POTASSIUM CHLORIDE ORAL LIQUID 20 MEQ/15 ML PO ONE (12:25)
[2020-09-01] MEDS: OLANZapine 5 MG TABLET PO SCH (22:00)
[2020-09-02] MEDS: VANCOMYCIN 250 MG/5 ML ORAL SOLUTION PO SCH ×2 (00:06→07:01)
[2020-09-02] MEDS: VALPROATE SODIUM 250 MG/5 ML UNIT DOSE CUP PO SCH (07:02)
[2020-09-02] MEDS: LEVOTHYROXINE NA 75 MCG TABLET (FP) PO SCH (07:02)
[2020-09-02] MEDS ORDERED: AMINO ACIDS/PROTEIN HYDROLYS 30 ML LIQUID.PKT PO SCH (08:00)
[2020-09-02 08:18] VITALS: BP 106/67
[2020-09-02] MEDS: MULTIVITAMINS (DAILY MVI) TABLET (FP) PO SCH (09:04)
[2020-09-02] MEDS: MIDODRINE HCL 5 MG TABLET PO SCH (09:04)
[2020-09-02] MEDS: PANTOPRAZOLE 40 MG TABLET PO SCH (09:05)
[2020-09-02] MEDS: LACTOBACILLUS ACIDOPHILUS 1 TABLET PO SCH (09:05)
[2020-09-02] MEDS: levETIRAcetam 500 MG/5 ML ORAL SOLUTION (UNIT-DOSE CUPS) PO SCH (09:05)
[2020-09-02] MEDS: DIGOXIN 0.125 MG TABLET (FP) PO SCH (09:05)
[2020-09-02 09:06] VITALS: PULSE 118
[2020-09-02] MEDS: MINERAL OIL/PET HY-PHL TOPICAL OINTMENT 454 GM JAR TP SCH (09:06)
[2020-09-02] MEDS: NYSTATIN 100,000 UNIT/GM TOPICAL CREAM 15 GM TUBE TP SCH (09:07)
[2020-09-02] MEDS: COLLAGENASE CLOSTRIDIUM HIST. 30 GRAMS TUBE TP SCH (09:07)
[2020-09-02 14:36] VITALS: TEMP 98
== END 2020-09-02 15:00 | DRG 720 ==
LOC: JER 15:21 → JERBED 17:51 → JICU 08-18 01:36 → J8W 08-28 19:15
PROVIDERS: ADMIT Internal Medicine Pulmonary Disease; ATTEND Internal Medicine
PROC: 30233L1 Transfusion of Nonautologous Fresh Plasma into Peripheral Vein, Percutaneous Approach (ICD-10-PCS; principal; 2020-08-17)
PROC: 30233K1 Transfusion of Nonautologous Frozen Plasma into Peripheral Vein, Percutaneous Approach (ICD-10-PCS; 2020-08-17)
PROC: 30233N1 Transfusion of Nonautologous Red Blood Cells into Peripheral Vein, Percutaneous Approach (ICD-10-PCS; 2020-08-17)
PROC: 30233M1 Transfusion of Nonautologous Plasma Cryoprecipitate into Peripheral Vein, Percutaneous Approach (ICD-10-PCS; 2020-08-17)
PROC: 30233R1 Transfusion of Nonautologous Platelets into Peripheral Vein, Percutaneous Approach (ICD-10-PCS; 2020-08-17)
PROC: 05HM33Z Insertion of Infusion Device into Right Internal Jugular Vein, Percutaneous Approach (ICD-10-PCS; 2020-08-18)
PROC: B543ZZA Ultrasonography of Right Jugular Veins, Guidance (ICD-10-PCS; 2020-08-18)
DX: A41.9 Sepsis, unspecified organism (principal); M86.9 Osteomyelitis, unspecified; N39.0 Urinary tract infection, site not specified; D64.9 Anemia, unspecified; I48.0 Paroxysmal atrial fibrillation; J80 Acute respiratory distress syndrome; I50.20 Unspecified systolic (congestive) heart failure; D65 Disseminated intravascular coagulation [defibrination syndrome]; A04.72 Enterocolitis due to Clostridium difficile, not specified as recurrent; R65.21 Severe sepsis with septic shock; E87.70 Fluid overload, unspecified; B96.1 Klebsiella pneumoniae [K. pneumoniae] as the cause of diseases classified elsewhere; D72.829 Elevated white blood cell count, unspecified; I95.9 Hypotension, unspecified; E03.9 Hypothyroidism, unspecified; F25.0 Schizoaffective disorder, bipolar type
CPT/HCPCS: 36415; 36430; 36511; 70450-TC; 71045-TC-FY; 72125-TC; 74018-TC-FY; 74230-TC-FY; 76705-TC; 80048; 80053; 80076; 80162; 80164; 81003; 82272; 82542; 82607; 82747; 82962; 83010; 83605; 83615; 83735; 84100; 84439; 84443; 84484; 84703; 85014; 85025; 85027; 85045; 85362; 85379; 85384; 85397; 85610; 85613; 85730; 85732; 86022; 86038; 86769; 86850; 86880; 86900; 86901; 86922; 87040; 87086; 87186; 87324; 87449; 87804; 92611-GN; 93005; 93010; 93306-TC; 93970-TC; 99291; 99292; C9803; J0131; P9012; P9017; P9034; P9038; P9047; P9058; U0003; U0005

== ENCOUNTER 2020-10-02 12:52 | Inpatient (IN) | payer OTHER ==
[2020-10-02] MEDS ORDERED: LACTATED RINGERS SOLUTION 1000 ML INFUS.BAG IV ONE (13:41)
[2020-10-02] MEDS ORDERED: LABETALOL HCL 5 MG/1 ML (100MG/20 ML VIAL) IVPUSH ONE ×2 (14:39→17:32)
[2020-10-02 15:33] LABS: VENOUS BASE EXCESS -1.9 mmol/L (-2-2); VENOUS O2 SATURATION 70.8 % (70-80); VENOUS PCO2 34.4 mmHg (38-52); VENOUS PH 7.425 (7.310-7.410)
[2020-10-02 15:34] LABS: BASO % 0.1 % (0-2.0); HEMOGLOBIN 9.8 GM/dL (10.7-15.3); LYMPH % 22.2 % (8-40); MCH 33.5 pg (25.7-33.7); MCHC 32.7 g/dl (32.0-36.0); MEAN CELL VOLUME 102.5 fl (80-96); MONO % 5.1 % (3.8-10.2); NEUT % 72.6 % (42.8-82.8); PLATELET COUNT 64 K/MM3 (134-434); RBC 2.93 M/mm3 (3.60-5.2); RDW 19.7 % (11.6-15.6); WHITE BLOOD COUNT 13.2 K/mm3 (4.0-10.0)
[2020-10-02 15:43] LABS: INR 2.13 (0.83-1.09); PROTHROMBIN TIME (PATIENT) 25.2 SEC (9.7-13.0)
[2020-10-02 15:46] LABS: ACTIVATED PTT 46.3 SECONDS (25.2-36.5)
[2020-10-02 15:58] LABS: ANISOCYTOSIS 1+; MACROCYTOSIS 1+; PLATELET ESTIMATE DECREASED
[2020-10-02 16:16] LABS: CHLORIDE 101 mmol/L (98-107); SODIUM 132 mmol/L (136-145)
[2020-10-02 16:18] LABS: CALCIUM 7.1 mg/dL (8.5-10.1)
[2020-10-02 16:19] LABS: ALBUMIN 1.2 g/dl (3.4-5.0); ANION GAP 9 MMOL/L (8-16); BLOOD UREA NITROGEN 11.2 mg/dL (7-18); CO2 22 mmol/L (21-32); GLUCOSE,RANDOM 108 mg/dL (74-106)
[2020-10-02 16:22] LABS: CREATININE 0.4 mg/dL (0.55-1.3); SGOT/AST 46 U/L (15-37); SGPT/ALT 32 U/L (13-61)
[2020-10-02 16:23] LABS: TOT PROT 4.2 g/dl (6.4-8.2)
[2020-10-02 16:24] LABS: BILIRUBIN,TOTAL 1.6 mg/dL (0.2-1)
[2020-10-02 16:25] LABS: ALK PHOS 284 U/L (45-117)
[2020-10-02 16:30] LABS: LACTIC ACID 3.1 mmol/L (0.4-2.0)
[2020-10-02 16:35] LABS: EPI CELLS >36 /uL (0-25.1); HYALINE CASTS 10 /uL (0-3.1); PH,URINE 5.5 (5.0-8.0); URINE APPEARANCE TURBID; URINE BACTERIA >9,000 /uL (0-1359); URINE BILIRUBIN 1+ (NEGATIVE); URINE COLOR DK YELLOW; URINE GLUCOSE (UA) NEGATIVE (NEGATIVE); URINE KETONE NEGATIVE (NEGATIVE); URINE LEUK ESTERASE 3+ (NEGATIVE); URINE NITRITE POSITIVE (NEGATIVE); URINE PROTEIN 1+ (NEGATIVE); URINE RBC 252 /uL (0-23.9); URINE WBC 13581 /uL (0-25.8)
[2020-10-02] MEDS ORDERED: CEFTRIAXONE 1,000 MG in DEXTROSE 5%-WATER - 50 ML IVPB ONE (16:35)
[2020-10-02] MEDS: SODIUM CHLORIDE 1,000 ML IV SCH (17:22)
[2020-10-02] MEDS ORDERED: CEFTRIAXONE 1 GM/50 ML BAG ONE (17:27)
[2020-10-02] MEDS ORDERED: ACETAMINOPHEN 1000 MG/100 ML VIAL (NON FORMULARY) IVPB PRN (18:09)
[2020-10-02] MEDS ORDERED: SODIUM CHLORIDE 0.9% 1000 ML INFUS.BAG IV ONE (18:17)
[2020-10-02] MEDS: DEXTROSE 5%-0.45% SALINE 1,000 ML IV SCH (20:50)
[2020-10-02] MEDS: levETIRAcetam 500 MG TABLET (FP) PO SCH (21:35)
[2020-10-03] MEDS ORDERED: ZINC OXIDE/PETROLATUM,WHITE 1 APPLIC OINT...G. TP PRN (00:21)
[2020-10-03] MEDS: NYSTATIN 100000 UNIT/GM TOPICAL OINTMENT 15 GM TUBE TP SCH ×3 (03:00→21:25)
[2020-10-03] MEDS ORDERED: LEVOTHYROXINE NA 75 MCG TABLET (FP) PO SCH (07:00)
[2020-10-03] MEDS ORDERED: cefTRIAXone SODIUM 1 GM VIAL ONE (10:02)
[2020-10-03] MEDS ORDERED: DEXTROSE 5%-WATER - 50 ML IVPB ONE (10:02)
[2020-10-03] MEDS: levETIRAcetam 500 MG TABLET (FP) PO SCH ×2 (10:26→21:25)
[2020-10-03] MEDS: PANTOPRAZOLE SODIUM 40 MG VIAL IVPUSH SCH (10:26)
[2020-10-03] MEDS: CEFTRIAXONE 1 GM in DEXTROSE 5%-WATER - 50 ML IVPB SCH (10:26)
[2020-10-03 11:02] LABS: BASO % 0.2 % (0-2.0); EOS % 0.1 % (0-4.5); HEMATOCRIT 27.5 % (32.4-45.2); HEMOGLOBIN 9.1 GM/dL (10.7-15.3); LYMPH % 38.2 % (8-40); MEAN PLT VOLUME 9.3 fl (7.5-11.1); MONO % 6.6 % (3.8-10.2); NEUT % 54.9 % (42.8-82.8); PLATELET COUNT 44 K/MM3 (134-434); RBC 2.67 M/mm3 (3.60-5.2); RDW 20.8 % (11.6-15.6); WHITE BLOOD COUNT 8.9 K/mm3 (4.0-10.0)
[2020-10-03 11:08] LABS: INR 2.16 (0.83-1.09)
[2020-10-03 11:30] LABS: ANISOCYTOSIS 1+; CHLORIDE 104 mmol/L (98-107); MACROCYTOSIS 0; PLATELET ESTIMATE DECREASED; SODIUM 135 mmol/L (136-145)
[2020-10-03 11:33] LABS: ALBUMIN 1.2 g/dl (3.4-5.0); ANION GAP 9 MMOL/L (8-16); CO2 22 mmol/L (21-32); GLUCOSE,RANDOM 103 mg/dL (74-106)
[2020-10-03 11:36] LABS: CREATININE 0.3 mg/dL (0.55-1.3); SGOT/AST 47 U/L (15-37); SGPT/ALT 36 U/L (13-61)
[2020-10-03 11:38] LABS: BILIRUBIN,TOTAL 1.4 mg/dL (0.2-1)
[2020-10-03 11:39] LABS: ALK PHOS 279 U/L (45-117)
[2020-10-03 11:57] LABS: CALCIUM 6.9 mg/dL (8.5-10.1)
[2020-10-03] MEDS ORDERED: PT OWN MED DRAWER 7, Y5N ONE (13:17)
[2020-10-03] MEDS: VANCOMYCIN 250 MG/5 ML ORAL SOLUTION PO SCH ×2 (13:23→17:55)
[2020-10-03] MEDS: KCL 10 MEQ IVPB 10 MEQ/100 ML INFUS.BAG IVPB SCH ×2 (14:28→15:04)
[2020-10-03] MEDS ORDERED: CALCIUM GLUCONATE IN NACL 1 GM/50 ML BAG IVPB ONE (14:45)
[2020-10-03] MEDS: SODIUM CHLORIDE 1,000 ML IV SCH (16:44)
[2020-10-03] MEDS: DEXTROSE 5%-0.45% SALINE 1,000 ML IV SCH (17:55)
[2020-10-04] MEDS: VANCOMYCIN 250 MG/5 ML ORAL SOLUTION PO SCH ×5 (03:16→18:18)
[2020-10-04] MEDS: LEVOTHYROXINE NA 50 MCG TABLET (FP) PO SCH (06:03)
[2020-10-04] MEDS ORDERED: DEXTROSE 5%-WATER - 50 ML IVPB ONE (09:14)
[2020-10-04] MEDS ORDERED: cefTRIAXone SODIUM 1 GM VIAL ONE (09:14)
[2020-10-04] MEDS: CEFTRIAXONE 1 GM in DEXTROSE 5%-WATER - 50 ML IVPB SCH (09:43)
[2020-10-04] MEDS: PANTOPRAZOLE SODIUM 40 MG VIAL IVPUSH SCH (09:43)
[2020-10-04] MEDS: levETIRAcetam 500 MG TABLET (FP) PO SCH ×2 (09:43→22:49)
[2020-10-04] MEDS: NYSTATIN 100000 UNIT/GM TOPICAL OINTMENT 15 GM TUBE TP SCH ×2 (09:46→22:50)
[2020-10-04] MEDS ORDERED: [UNRECOGNIZED DRUG - OTHER] PR PRN (10:56)
[2020-10-04] MEDS ORDERED: [UNRECOGNIZED DRUG - OTHER] OU PRN (10:56)
[2020-10-04] MEDS ORDERED: POVIDONE OU PRN (10:56)
[2020-10-04] MEDS ORDERED: POLYVINYL ALCOHOL OU PRN (10:56)
[2020-10-04] MEDS: DEXTROSE 5%-0.45% SALINE 1,000 ML IV SCH (18:19)
[2020-10-04] MEDS: SODIUM CHLORIDE 1,000 ML IV SCH (18:19)
[2020-10-04] MEDS: ASCORBIC ACID 500 MG TABLET (FP) PO SCH (22:48)
[2020-10-04] MEDS: QUEtiapine FUMARATE 100 MG TABLET (FP) PO SCH (22:49)
[2020-10-04] MEDS: ATORVASTATIN CA 20 MG TABLET (FP) PO SCH (22:49)
[2020-10-04] MEDS: ZINC OXIDE 20% TOPICAL OINTMENT 30 GM TUBE TP SCH (22:49)
[2020-10-04] MEDS ORDERED: PT OWN MED DRAWER 7, Y5N ONE (22:56)
[2020-10-04] MEDS: VALPROATE SODIUM 250 MG/5 ML UNIT DOSE CUP PO SCH (22:59)
[2020-10-05] MEDS ORDERED: ARTIFICIAL TEARS (POLYVINYL ALCOHOL) OPTH DROPS OU PRN (02:36)
[2020-10-05] MEDS: VANCOMYCIN 250 MG/5 ML ORAL SOLUTION PO SCH ×4 (05:34→17:01)
[2020-10-05] MEDS: LEVOTHYROXINE NA 50 MCG TABLET (FP) PO SCH (07:20)
[2020-10-05] MEDS ORDERED: PATIENT'S OWN MEDICATION (NON-FORMULARY) (Lidocaine [Aspercreme Lidocaine] 1 EACH Adh..Pat TD SCH (10:00)
[2020-10-05] MEDS ORDERED: PT OWN MED DRAWER 7, Y5N ONE ×2 (10:13→20:44)
[2020-10-05] MEDS ORDERED: cefTRIAXone SODIUM 1 GM VIAL ONE (10:14)
[2020-10-05] MEDS ORDERED: DEXTROSE 5%-WATER - 50 ML IVPB ONE (10:14)
[2020-10-05] MEDS: levETIRAcetam 500 MG TABLET (FP) PO SCH ×2 (10:19→21:39)
[2020-10-05] MEDS: ASCORBIC ACID 500 MG TABLET (FP) PO SCH ×2 (10:19→21:40)
[2020-10-05] MEDS: QUEtiapine FUMARATE 100 MG TABLET (FP) PO SCH ×2 (10:19→21:39)
[2020-10-05] MEDS: CEFTRIAXONE 1 GM in DEXTROSE 5%-WATER - 50 ML IVPB SCH (10:19)
[2020-10-05] MEDS: MULTIVITAMINS (DAILY MVI) TABLET (FP) PO SCH (10:19)
[2020-10-05] MEDS: PANTOPRAZOLE SODIUM 40 MG VIAL IVPUSH SCH (10:20)
[2020-10-05] MEDS: NYSTATIN 100000 UNIT/GM TOPICAL OINTMENT 15 GM TUBE TP SCH ×2 (10:20→22:00)
[2020-10-05] MEDS: ZINC OXIDE 20% TOPICAL OINTMENT 30 GM TUBE TP SCH ×2 (10:21→21:40)
[2020-10-05] MEDS: VALPROATE SODIUM 250 MG/5 ML UNIT DOSE CUP PO SCH ×2 (10:21→21:39)
[2020-10-05] MEDS: PHYTONADIONE 10 MG/1 ML AMP SQ SCH (17:58)
[2020-10-05] MEDS: DEXTROSE 5%-0.45% SALINE 1,000 ML IV SCH (18:22)
[2020-10-05] MEDS: ATORVASTATIN CA 20 MG TABLET (FP) PO SCH (22:00)
[2020-10-06] MEDS: VANCOMYCIN 250 MG/5 ML ORAL SOLUTION PO SCH ×3 (07:49→18:23)
[2020-10-06] MEDS: LEVOTHYROXINE NA 50 MCG TABLET (FP) PO SCH (07:50)
[2020-10-06] MEDS: BANATROL PLUS POWDER PACKET PO SCH ×3 (07:51→22:21)
[2020-10-06] MEDS: PANTOPRAZOLE SODIUM 40 MG VIAL IVPUSH SCH (10:00)
[2020-10-06] MEDS: ZINC OXIDE 20% TOPICAL OINTMENT 30 GM TUBE TP SCH ×2 (10:00→21:59)
[2020-10-06] MEDS: NYSTATIN 100000 UNIT/GM TOPICAL OINTMENT 15 GM TUBE TP SCH ×2 (10:00→21:58)
[2020-10-06] MEDS ORDERED: PHYTONADIONE 10 MG/1 ML AMP SQ SCH (10:00)
[2020-10-06] MEDS ORDERED: cefTRIAXone SODIUM 1 GM VIAL ONE (10:26)
[2020-10-06] MEDS ORDERED: DEXTROSE 5%-WATER - 50 ML IVPB ONE (10:26)
[2020-10-06] MEDS ORDERED: PT OWN MED DRAWER 7, Y5N ONE ×4 (10:26→20:52)
[2020-10-06] MEDS: CEFTRIAXONE 1 GM in DEXTROSE 5%-WATER - 50 ML IVPB SCH (11:24)
[2020-10-06] MEDS: QUEtiapine FUMARATE 100 MG TABLET (FP) PO SCH ×2 (11:25→21:57)
[2020-10-06] MEDS: ASCORBIC ACID 500 MG TABLET (FP) PO SCH ×2 (11:26→21:57)
[2020-10-06] MEDS: levETIRAcetam 500 MG TABLET (FP) PO SCH ×2 (11:26→21:58)
[2020-10-06] MEDS: VALPROATE SODIUM 250 MG/5 ML UNIT DOSE CUP PO SCH ×2 (11:26→21:58)
[2020-10-06] MEDS: MULTIVITAMINS (DAILY MVI) TABLET (FP) PO SCH (11:26)
[2020-10-06] MEDS: PHYTONADIONE 10 MG/1 ML AMP SQ SCH (11:27)
[2020-10-06] MEDS: DEXTROSE 5%-0.45% SALINE 1,000 ML IV SCH (18:00)
[2020-10-06] MEDS: PERIGUARD TD SCH ×2 (20:34→20:35)
[2020-10-06] MEDS: ATORVASTATIN CA 20 MG TABLET (FP) PO SCH (21:58)
[2020-10-07] MEDS: VANCOMYCIN 250 MG/5 ML ORAL SOLUTION PO SCH ×4 (01:12→17:42)
[2020-10-07] MEDS: LEVOTHYROXINE NA 50 MCG TABLET (FP) PO SCH (06:01)
[2020-10-07] MEDS: BANATROL PLUS POWDER PACKET PO SCH ×2 (06:01→14:04)
[2020-10-07] MEDS ORDERED: cefTRIAXone SODIUM 1 GM VIAL ONE (09:45)
[2020-10-07] MEDS ORDERED: DEXTROSE 5%-WATER - 50 ML IVPB ONE (09:45)
[2020-10-07] MEDS: MULTIVITAMINS (DAILY MVI) TABLET (FP) PO SCH (09:56)
[2020-10-07] MEDS: LACTOBACILLUS ACIDOPHILUS 1 TABLET PO SCH (09:56)
[2020-10-07] MEDS: PANTOPRAZOLE SODIUM 40 MG VIAL IVPUSH SCH (09:56)
[2020-10-07] MEDS: CEFTRIAXONE 1 GM in DEXTROSE 5%-WATER - 50 ML IVPB SCH (09:56)
[2020-10-07] MEDS: PHYTONADIONE 10 MG/1 ML AMP SQ SCH (09:56)
[2020-10-07] MEDS: levETIRAcetam 500 MG TABLET (FP) PO SCH ×2 (09:56→22:15)
[2020-10-07] MEDS: VALPROATE SODIUM 250 MG/5 ML UNIT DOSE CUP PO SCH ×2 (09:57→22:14)
[2020-10-07] MEDS: ASCORBIC ACID 500 MG TABLET (FP) PO SCH ×2 (09:57→22:15)
[2020-10-07] MEDS: NYSTATIN 100000 UNIT/GM TOPICAL OINTMENT 15 GM TUBE TP SCH ×2 (09:57→22:17)
[2020-10-07] MEDS: ZINC OXIDE 20% TOPICAL OINTMENT 30 GM TUBE TP SCH ×2 (09:57→22:17)
[2020-10-07] MEDS: QUEtiapine FUMARATE 100 MG TABLET (FP) PO SCH ×2 (09:57→22:15)
[2020-10-07] MEDS: DEXTROSE 5%-0.45% SALINE 1,000 ML IV SCH (17:43)
[2020-10-07] MEDS ORDERED: PT OWN MED DRAWER 7, Y5N ONE (21:07)
[2020-10-07] MEDS: ATORVASTATIN CA 20 MG TABLET (FP) PO SCH (22:15)
[2020-10-08] MEDS: NITROFURANTOIN MACROCRYSTAL 50 MG CAPSULE (FP) PO SCH ×4 (00:28→17:44)
[2020-10-08] MEDS: VANCOMYCIN 250 MG/5 ML ORAL SOLUTION PO SCH ×4 (00:28→17:44)
[2020-10-08] MEDS: LEVOTHYROXINE NA 50 MCG TABLET (FP) PO SCH (06:27)
[2020-10-08] MEDS ORDERED: TRIPLE LUMEN FLUSH 4 ML ML IVPUSH PRN (09:36)
[2020-10-08] MEDS: LACTOBACILLUS ACIDOPHILUS 1 TABLET PO SCH (09:49)
[2020-10-08] MEDS: QUEtiapine FUMARATE 100 MG TABLET (FP) PO SCH ×2 (09:49→21:40)
[2020-10-08] MEDS: levETIRAcetam 500 MG TABLET (FP) PO SCH ×2 (09:50→21:39)
[2020-10-08] MEDS: MULTIVITAMINS (DAILY MVI) TABLET (FP) PO SCH (09:50)
[2020-10-08] MEDS: ASCORBIC ACID 500 MG TABLET (FP) PO SCH ×2 (09:50→21:40)
[2020-10-08] MEDS: PANTOPRAZOLE SODIUM 40 MG VIAL IVPUSH SCH (09:50)
[2020-10-08] MEDS: ZINC OXIDE 20% TOPICAL OINTMENT 30 GM TUBE TP SCH ×2 (10:44→21:40)
[2020-10-08] MEDS: NYSTATIN 100000 UNIT/GM TOPICAL OINTMENT 15 GM TUBE TP SCH ×2 (11:40→21:40)
[2020-10-08] MEDS: VALPROATE SODIUM 250 MG/5 ML UNIT DOSE CUP PO SCH ×2 (11:40→22:34)
[2020-10-08 13:55] LABS: BASO % 0.2 % (0-2.0); EOS % 0.1 % (0-4.5); HEMATOCRIT 29.9 % (32.4-45.2); HEMOGLOBIN 9.8 GM/dL (10.7-15.3); LYMPH % 34.3 % (8-40); MCH 34.8 pg (25.7-33.7); MCHC 32.7 g/dl (32.0-36.0); MEAN CELL VOLUME 106.3 fl (80-96); MEAN PLT VOLUME 12.3 fl (7.5-11.1); MONO % 5.9 % (3.8-10.2); NEUT % 59.5 % (42.8-82.8); RBC 2.81 M/mm3 (3.60-5.2); RDW 22.1 % (11.6-15.6); WHITE BLOOD COUNT 6.4 K/mm3 (4.0-10.0)
[2020-10-08 14:02] LABS: INR 1.38 (0.83-1.09); PROTHROMBIN TIME (PATIENT) 16.6 SEC (9.7-13.0)
[2020-10-08 14:05] LABS: ACTIVATED PTT 30.5 SECONDS (25.2-36.5)
[2020-10-08 14:09] LABS: PLATELET COUNT 33 K/MM3 (134-434)
[2020-10-08 14:16] LABS: GAMMA GLUTAMYL TRANSPEPTIDASE 128 U/L (5-85)
[2020-10-08 14:18] LABS: AMYLASE 6 U/L (25-115); LIPASE < 10 U/L (73-393)
[2020-10-08 14:20] LABS: IRON SERUM 44 ug/dL (50-175); TOTAL IRON BINDING CAPACITY 41 ug/dL (250-450)
[2020-10-08 14:29] LABS: LACTIC ACID 2.7 mmol/L (0.4-2.0)
[2020-10-08 14:31] LABS: CHLORIDE 106 mmol/L (98-107); SODIUM 136 mmol/L (136-145)
[2020-10-08 14:33] LABS: ALBUMIN 1.1 g/dl (3.4-5.0); CALCIUM 7.3 mg/dL (8.5-10.1)
[2020-10-08 14:34] LABS: ANION GAP 6 MMOL/L (8-16); CO2 24 mmol/L (21-32); GLUCOSE,RANDOM 116 mg/dL (74-106)
[2020-10-08 14:36] LABS: SGPT/ALT 49 U/L (13-61)
[2020-10-08] MEDS: DEXTROSE 5%-0.45% SALINE 1,000 ML IV SCH (14:36)
[2020-10-08 14:37] LABS: CREATININE 0.2 mg/dL (0.55-1.3); SGOT/AST 33 U/L (15-37)
[2020-10-08 14:38] LABS: BILIRUBIN,TOTAL 1.1 mg/dL (0.2-1); TOT PROT 4.3 g/dl (6.4-8.2)
[2020-10-08 15:11] LABS: LDH 137 U/L (84-246)
[2020-10-08 15:13] LABS: ALK PHOS 455 U/L (45-117)
[2020-10-08 15:14] LABS: ANISOCYTOSIS 1+; MACROCYTOSIS 0; PLATELET ESTIMATE DECREASED
[2020-10-08] MEDS ORDERED: PT OWN MED DRAWER 7, Y5N ONE (20:06)
[2020-10-08] MEDS: ATORVASTATIN CA 20 MG TABLET (FP) PO SCH (21:39)
[2020-10-09] MEDS: NITROFURANTOIN MACROCRYSTAL 50 MG CAPSULE (FP) PO SCH ×5 (00:37→23:29)
[2020-10-09] MEDS: VANCOMYCIN 250 MG/5 ML ORAL SOLUTION PO SCH ×5 (00:38→23:29)
[2020-10-09] MEDS: LEVOTHYROXINE NA 50 MCG TABLET (FP) PO SCH (06:38)
[2020-10-09] MEDS ORDERED: PT OWN MED DRAWER 7, Y5N ONE ×3 (10:44→19:35)
[2020-10-09] MEDS: PANTOPRAZOLE SODIUM 40 MG VIAL IVPUSH SCH (10:53)
[2020-10-09] MEDS: LACTOBACILLUS ACIDOPHILUS 1 TABLET PO SCH (10:54)
[2020-10-09] MEDS: VALPROATE SODIUM 250 MG/5 ML UNIT DOSE CUP PO SCH ×2 (10:54→21:26)
[2020-10-09] MEDS: MULTIVITAMINS (DAILY MVI) TABLET (FP) PO SCH (10:54)
[2020-10-09] MEDS: ASCORBIC ACID 500 MG TABLET (FP) PO SCH ×2 (10:54→21:27)
[2020-10-09] MEDS: NYSTATIN 100000 UNIT/GM TOPICAL OINTMENT 15 GM TUBE TP SCH ×2 (10:54→21:26)
[2020-10-09] MEDS: levETIRAcetam 500 MG TABLET (FP) PO SCH ×2 (10:54→21:26)
[2020-10-09] MEDS: QUEtiapine FUMARATE 100 MG TABLET (FP) PO SCH ×2 (10:54→21:27)
[2020-10-09] MEDS: ZINC OXIDE 20% TOPICAL OINTMENT 30 GM TUBE TP SCH ×2 (10:55→21:27)
[2020-10-09] MEDS: DEXTROSE 5%-0.45% SALINE 1,000 ML IV SCH (10:55)
[2020-10-09 11:54] LABS: BASO % 0.1 % (0-2.0); EOS % 0.3 % (0-4.5); HEMOGLOBIN 8.3 GM/dL (10.7-15.3); MCH 34.8 pg (25.7-33.7); MCHC 32.2 g/dl (32.0-36.0); MEAN CELL VOLUME 108.3 fl (80-96); MEAN PLT VOLUME 11.3 fl (7.5-11.1); MONO % 2.6 % (3.8-10.2); RDW 21.4 % (11.6-15.6); WHITE BLOOD COUNT 10.3 K/mm3 (4.0-10.0)
[2020-10-09 12:11] LABS: PLATELET COUNT 31 K/MM3 (134-434)
[2020-10-09 12:22] LABS: ALBUMIN 1.1 g/dl (3.4-5.0); BLOOD UREA NITROGEN 6.8 mg/dL (7-18); CALCIUM 7.2 mg/dL (8.5-10.1)
[2020-10-09 12:25] LABS: CREATININE 0.3 mg/dL (0.55-1.3)
[2020-10-09 12:26] LABS: BILIRUBIN,TOTAL 1.1 mg/dL (0.2-1)
[2020-10-09 12:52] LABS: ANISOCYTOSIS 1+; MACROCYTOSIS 2+; PLATELET ESTIMATE DECREASED
[2020-10-09] MEDS: AMINO ACIDS 4.25%/D5W 1,000 ML IV SCH (16:09)
[2020-10-09] MEDS: ATORVASTATIN CA 20 MG TABLET (FP) PO SCH (21:26)
[2020-10-09] MEDS ORDERED: FAT EMULSIONS 250 ML IV SCH (22:00)
[2020-10-09] MEDS ORDERED: FAT EMULSIONS 20% 250 ML PREMIX INFUS.BAG IV SCH (22:00)
[2020-10-10] MEDS: VANCOMYCIN 250 MG/5 ML ORAL SOLUTION PO SCH ×3 (06:27→17:16)
[2020-10-10] MEDS: NITROFURANTOIN MACROCRYSTAL 50 MG CAPSULE (FP) PO SCH ×3 (06:27→17:16)
[2020-10-10] MEDS: LEVOTHYROXINE NA 50 MCG TABLET (FP) PO SCH (06:28)
[2020-10-10] MEDS: LACTOBACILLUS ACIDOPHILUS 1 TABLET PO SCH (11:17)
[2020-10-10] MEDS: ASCORBIC ACID 500 MG TABLET (FP) PO SCH ×2 (11:17→22:15)
[2020-10-10] MEDS: QUEtiapine FUMARATE 100 MG TABLET (FP) PO SCH ×2 (11:17→22:15)
[2020-10-10] MEDS: ZINC OXIDE 20% TOPICAL OINTMENT 30 GM TUBE TP SCH ×2 (11:17→22:15)
[2020-10-10] MEDS: NYSTATIN 100000 UNIT/GM TOPICAL OINTMENT 15 GM TUBE TP SCH ×2 (11:17→22:15)
[2020-10-10] MEDS: PANTOPRAZOLE SODIUM 40 MG VIAL IVPUSH SCH (11:17)
[2020-10-10] MEDS: levETIRAcetam 500 MG TABLET (FP) PO SCH ×2 (11:17→22:15)
[2020-10-10] MEDS: MULTIVITAMINS (DAILY MVI) TABLET (FP) PO SCH (11:17)
[2020-10-10] MEDS: VALPROATE SODIUM 250 MG/5 ML UNIT DOSE CUP PO SCH ×2 (11:18→22:14)
[2020-10-10] MEDS ORDERED: PT OWN MED DRAWER 7, Y5N ONE ×3 (13:11→21:59)
[2020-10-10 16:16] LABS: HEP B CORE AB, TOT Negative (Negative)
[2020-10-10] MEDS: AMINO ACIDS 4.25%/D5W 1,000 ML IV SCH (17:15)
[2020-10-10] MEDS: FAT EMULSION/OLIVE/SOY/PHOSPHO 250 ML IV SCH (22:14)
[2020-10-10] MEDS: ATORVASTATIN CA 20 MG TABLET (FP) PO SCH (22:15)
[2020-10-11] MEDS: NITROFURANTOIN MACROCRYSTAL 50 MG CAPSULE (FP) PO SCH ×5 (00:02→23:33)
[2020-10-11] MEDS: VANCOMYCIN 250 MG/5 ML ORAL SOLUTION PO SCH ×5 (00:03→23:33)
[2020-10-11] MEDS: LEVOTHYROXINE NA 50 MCG TABLET (FP) PO SCH (06:19)
[2020-10-11 10:35] LABS: BASO % 0.7 % (0-2.0); EOS % 0.1 % (0-4.5); HEMATOCRIT 24.7 % (32.4-45.2); HEMOGLOBIN 8.2 GM/dL (10.7-15.3); LYMPH % 17.1 % (8-40); MCH 36.1 pg (25.7-33.7); MCHC 33.1 g/dl (32.0-36.0); MEAN CELL VOLUME 108.9 fl (80-96); MEAN PLT VOLUME 9.7 fl (7.5-11.1); MONO % 0.2 % (3.8-10.2); NEUT % 81.9 % (42.8-82.8); RBC 2.26 M/mm3 (3.60-5.2); WHITE BLOOD COUNT 8.1 K/mm3 (4.0-10.0)
[2020-10-11] MEDS: LACTOBACILLUS ACIDOPHILUS 1 TABLET PO SCH (10:43)
[2020-10-11] MEDS: ASCORBIC ACID 500 MG TABLET (FP) PO SCH ×2 (10:43→21:11)
[2020-10-11] MEDS: QUEtiapine FUMARATE 100 MG TABLET (FP) PO SCH ×2 (10:43→21:11)
[2020-10-11] MEDS: levETIRAcetam 500 MG TABLET (FP) PO SCH ×2 (10:44→21:11)
[2020-10-11] MEDS: MULTIVITAMINS (DAILY MVI) TABLET (FP) PO SCH (10:44)
[2020-10-11] MEDS: PANTOPRAZOLE SODIUM 40 MG VIAL IVPUSH SCH (10:44)
[2020-10-11 10:46] LABS: PLATELET COUNT 11 K/MM3 (134-434)
[2020-10-11] MEDS: VALPROATE SODIUM 250 MG/5 ML UNIT DOSE CUP PO SCH ×2 (10:46→21:11)
[2020-10-11] MEDS: ZINC OXIDE 20% TOPICAL OINTMENT 30 GM TUBE TP SCH ×2 (10:47→21:12)
[2020-10-11] MEDS: NYSTATIN 100000 UNIT/GM TOPICAL OINTMENT 15 GM TUBE TP SCH ×2 (10:47→21:12)
[2020-10-11 12:07] LABS: ANISOCYTOSIS 2+; MACROCYTOSIS 2+; PLATELET ESTIMATE DECREASED; ROULEAU 2+
[2020-10-11] MEDS ORDERED: PT OWN MED DRAWER 7, Y5N ONE ×2 (12:36→18:59)
[2020-10-11 15:22] LABS: INR 1.5 (0.83-1.09); PROTHROMBIN TIME (PATIENT) 18.2 SEC (9.7-13.0)
[2020-10-11 15:24] LABS: ACTIVATED PTT 25.4 SECONDS (25.2-36.5)
[2020-10-11] MEDS: AMINO ACIDS 4.25%/D5W 1,000 ML IV SCH (16:32)
[2020-10-11 16:46] LABS: EPI CELLS >36 /uL (0-25.1); HYALINE CASTS 2 /uL (0-3.1); URINE APPEARANCE CLEAR; URINE BILIRUBIN NEGATIVE (NEGATIVE); URINE COLOR YELLOW; URINE GLUCOSE (UA) NEGATIVE (NEGATIVE); URINE KETONE NEGATIVE (NEGATIVE); URINE LEUK ESTERASE 3+ (NEGATIVE); URINE NITRITE POSITIVE (NEGATIVE); URINE PROTEIN TRACE (NEGATIVE); URINE RBC 13 /uL (0-23.9); URINE UROBILINOGEN 0.2 mg/dL (0.2-1.0); URINE WBC 154 /uL (0-25.8)
[2020-10-11 19:29] LABS: URINE BACTERIA 14.3 /uL (0-1359)
[2020-10-11] MEDS: ATORVASTATIN CA 20 MG TABLET (FP) PO SCH (21:11)
[2020-10-11] MEDS: FAT EMULSION/OLIVE/SOY/PHOSPHO 250 ML IV SCH (21:11)
[2020-10-12] MEDS ORDERED: ACETAMINOPHEN 325 MG TABLET (FP) PO ONE (03:27)
[2020-10-12] MEDS: VANCOMYCIN 250 MG/5 ML ORAL SOLUTION PO SCH ×3 (06:40→18:00)
[2020-10-12] MEDS: NITROFURANTOIN MACROCRYSTAL 50 MG CAPSULE (FP) PO SCH ×2 (06:42→12:50)
[2020-10-12] MEDS: LEVOTHYROXINE NA 50 MCG TABLET (FP) PO SCH (06:42)
[2020-10-12 09:17] LABS: BASO % 0.4 % (0-2.0); EOS % 0.1 % (0-4.5); HEMATOCRIT 17.6 % (32.4-45.2); MCH 38.1 pg (25.7-33.7); MCHC 34.4 g/dl (32.0-36.0); MEAN CELL VOLUME 110.7 fl (80-96); MEAN PLT VOLUME 10.7 fl (7.5-11.1); MONO % 4.4 % (3.8-10.2); NEUT % 70.1 % (42.8-82.8); RBC 1.59 M/mm3 (3.60-5.2); RDW 20.4 % (11.6-15.6); WHITE BLOOD COUNT 2.2 K/mm3 (4.0-10.0)
[2020-10-12] MEDS ORDERED: PT OWN MED DRAWER 7, Y5N ONE ×3 (09:21→22:08)
[2020-10-12 09:43] LABS: CHLORIDE 111 mmol/L (98-107); SODIUM 141 mmol/L (136-145)
[2020-10-12 10:01] LABS: ALBUMIN 0.9 g/dl (3.4-5.0); BLOOD UREA NITROGEN 4.2 mg/dL (7-18); CO2 23 mmol/L (21-32); GLUCOSE,RANDOM 96 mg/dL (74-106)
[2020-10-12] MEDS: ASCORBIC ACID 500 MG TABLET (FP) PO SCH ×2 (10:01→22:09)
[2020-10-12] MEDS: levETIRAcetam 500 MG TABLET (FP) PO SCH ×2 (10:01→22:09)
[2020-10-12] MEDS: MULTIVITAMINS (DAILY MVI) TABLET (FP) PO SCH (10:01)
[2020-10-12] MEDS: LACTOBACILLUS ACIDOPHILUS 1 TABLET PO SCH (10:01)
[2020-10-12] MEDS: QUEtiapine FUMARATE 100 MG TABLET (FP) PO SCH ×2 (10:01→22:09)
[2020-10-12] MEDS: VALPROATE SODIUM 250 MG/5 ML UNIT DOSE CUP PO SCH ×2 (10:02→23:00)
[2020-10-12] MEDS: ZINC OXIDE 20% TOPICAL OINTMENT 30 GM TUBE TP SCH ×2 (10:02→22:10)
[2020-10-12] MEDS: PANTOPRAZOLE SODIUM 40 MG VIAL IVPUSH SCH (10:02)
[2020-10-12] MEDS: NYSTATIN 100000 UNIT/GM TOPICAL OINTMENT 15 GM TUBE TP SCH ×2 (10:02→22:10)
[2020-10-12 10:04] LABS: CREATININE < 0.2 mg/dL (0.55-1.3); SGOT/AST 32 U/L (15-37); SGPT/ALT 23 U/L (13-61)
[2020-10-12 10:05] LABS: BILIRUBIN,TOTAL 0.6 mg/dL (0.2-1)
[2020-10-12 10:06] LABS: TOT PROT 3.3 g/dl (6.4-8.2)
[2020-10-12 10:39] LABS: ALK PHOS 272 U/L (45-117); ANION GAP 6 MMOL/L (8-16); CALCIUM 6.7 mg/dL (8.5-10.1)
[2020-10-12 11:22] LABS: PLATELET ESTIMATE MOD DECREASED
[2020-10-12 11:26] LABS: HEMOGLOBIN 6.1 GM/dL (10.7-15.3)
[2020-10-12 11:36] LABS: ANISOCYTOSIS 2+; MACROCYTOSIS 0
[2020-10-12] MEDS ORDERED: POTASSIUM CHLORIDE ORAL LIQUID 20 MEQ/15 ML PO ONE (12:39)
[2020-10-12] MEDS: KCL 10 MEQ IVPB 10 MEQ/100 ML INFUS.BAG IVPB SCH ×3 (12:58→14:56)
[2020-10-12] MEDS ORDERED: VANCOMYCIN 1 GRAM (PRE-DOCKED) 1,000 MG/250 ML BAG IVPB SCH (14:15)
[2020-10-12] MEDS ORDERED: MEROPENEM 1 GM VIAL (RESTRICTED TO ID) IVPB ONE ×2 (14:55→18:33)
[2020-10-12] MEDS ORDERED: DEXTROSE 5%-WATER 100 ML IVPB ONE ×2 (14:55→18:33)
[2020-10-12] MEDS: MEROPENEM 1 GM in DEXTROSE 5%-WATER 100 ML IVPB SCH ×2 (14:56→18:37)
[2020-10-12 19:42] LABS: CHLORIDE 111 mmol/L (98-107); SODIUM 141 mmol/L (136-145)
[2020-10-12 19:44] LABS: CALCIUM 7.1 mg/dL (8.5-10.1)
[2020-10-12 19:45] LABS: ANION GAP 5 MMOL/L (8-16); BLOOD UREA NITROGEN 3.7 mg/dL (7-18); CO2 25 mmol/L (21-32); GLUCOSE,RANDOM 114 mg/dL (74-106); MAGNESIUM 1.4 mg/dL (1.8-2.4)
[2020-10-12 19:48] LABS: CREATININE < 0.2 mg/dL (0.55-1.3); PHOSPHOROUS 1.3 mg/dL (2.5-4.9); SGOT/AST 30 U/L (15-37); SGPT/ALT 24 U/L (13-61)
[2020-10-12 19:49] LABS: BILIRUBIN,TOTAL 0.6 mg/dL (0.2-1); TOT PROT 3.9 g/dl (6.4-8.2)
[2020-10-12 19:50] LABS: ALK PHOS 263 U/L (45-117)
[2020-10-12 19:58] LABS: ALBUMIN 1.2 g/dl (3.4-5.0)
[2020-10-12] MEDS: AMINO ACIDS 4.25%/D5W 1,000 ML IV SCH (20:23)
[2020-10-12] MEDS: VANCOMYCIN 1 GRAM (PRE-DOCKED) 1,000 MG/250 ML BAG IVPB SCH (20:25)
[2020-10-12] MEDS ORDERED: MAGNESIUM 1GM/D5W - 2 GM/200 ML IVPB IVPB ONE (21:20)
[2020-10-12] MEDS ORDERED: SODIUM PHOSPHATE - 30 MM in DEXTROSE 5%-WATER - 250 ML IVPB ONE (21:21)
[2020-10-12] MEDS: MUPIROCIN 2% TOPICAL OINTMENT FOR DECOLONIZATION NS SCH (22:07)
[2020-10-12] MEDS: ATORVASTATIN CA 20 MG TABLET (FP) PO SCH (22:10)
[2020-10-12] MEDS: CHLORHEXIDINE GLUCONATE 4% CLEANSER FOR DECOLONIZATION TP SCH (22:10)
[2020-10-12] MEDS: FAT EMULSION/OLIVE/SOY/PHOSPHO 250 ML IV SCH (23:00)
[2020-10-13] MEDS: VANCOMYCIN 250 MG/5 ML ORAL SOLUTION PO SCH ×4 (00:48→17:12)
[2020-10-13] MEDS ORDERED: DEXTROSE 5%-WATER 100 ML IVPB ONE ×4 (01:07→21:16)
[2020-10-13] MEDS ORDERED: MEROPENEM 1 GM VIAL (RESTRICTED TO ID) IVPB ONE ×4 (01:07→21:15)
[2020-10-13] MEDS: MEROPENEM 1 GM in DEXTROSE 5%-WATER 100 ML IVPB SCH ×3 (01:11→17:11)
[2020-10-13] MEDS ORDERED: PT OWN MED DRAWER 7, Y5N ONE ×5 (05:50→20:19)
[2020-10-13] MEDS: LEVOTHYROXINE NA 50 MCG TABLET (FP) PO SCH (06:25)
[2020-10-13 06:54] LABS: BASO % 0.4 % (0-2.0); EOS % 0.4 % (0-4.5); HEMATOCRIT 27.3 % (32.4-45.2); LYMPH % 23.4 % (8-40); MCH 35.9 pg (25.7-33.7); MCHC 36.7 g/dl (32.0-36.0); MEAN CELL VOLUME 97.8 fl (80-96); MEAN PLT VOLUME 10.7 fl (7.5-11.1); MONO % 8.6 % (3.8-10.2); NEUT % 67.2 % (42.8-82.8); RBC 2.79 M/mm3 (3.60-5.2); RDW 18.4 % (11.6-15.6); WHITE BLOOD COUNT 4.3 K/mm3 (4.0-10.0)
[2020-10-13 06:59] LABS: INR 1.45 (0.83-1.09); PROTHROMBIN TIME (PATIENT) 17.3 SEC (9.7-13.0)
[2020-10-13 07:01] LABS: ACTIVATED PTT 32.2 SECONDS (25.2-36.5)
[2020-10-13 07:10] LABS: CHLORIDE 109 mmol/L (98-107); SODIUM 140 mmol/L (136-145)
[2020-10-13 07:14] LABS: ALBUMIN 1.2 g/dl (3.4-5.0); ANION GAP 5 MMOL/L (8-16); BLOOD UREA NITROGEN 3.4 mg/dL (7-18); CO2 26 mmol/L (21-32); GLUCOSE,RANDOM 107 mg/dL (74-106); MAGNESIUM 2.1 mg/dL (1.8-2.4)
[2020-10-13 07:17] LABS: PHOSPHOROUS 3.6 mg/dL (2.5-4.9); SGOT/AST 32 U/L (15-37); SGPT/ALT 22 U/L (13-61)
[2020-10-13 07:18] LABS: BILIRUBIN,TOTAL 1.2 mg/dL (0.2-1)
[2020-10-13 07:19] LABS: TOT PROT 3.8 g/dl (6.4-8.2)
[2020-10-13 07:20] LABS: ALK PHOS 241 U/L (45-117); LDH 283 U/L (84-246)
[2020-10-13 07:38] LABS: PLATELET COUNT 9 K/MM3 (134-434)
[2020-10-13 07:55] LABS: CALCIUM 6.7 mg/dL (8.5-10.1); CREATININE < 0.2 mg/dL (0.55-1.3)
[2020-10-13] MEDS: VANCOMYCIN 1 GRAM (PRE-DOCKED) 1,000 MG/250 ML BAG IVPB SCH ×2 (08:03→21:32)
[2020-10-13] MEDS: HYDROmorphone HCl 2 MG/ML VIAL IVPUSH PRN (08:03)
[2020-10-13] MEDS ORDERED: CALCIUM GLUC IN NACL, ISO-OSM 1 GM/50 ML BAG IVPB ONE (08:13)
[2020-10-13] MEDS ORDERED: POTASSIUM CHLORIDE 20 MEQ PREMIX IVPB 100 ML IVPB ONE (08:13)
[2020-10-13] MEDS ORDERED: KCL 10 MEQ IVPB 10 MEQ/100 ML INFUS.BAG IVPB SCH (09:00)
[2020-10-13] MEDS: PANTOPRAZOLE SODIUM 40 MG VIAL IVPUSH SCH (09:13)
[2020-10-13] MEDS: MUPIROCIN 2% TOPICAL OINTMENT FOR DECOLONIZATION NS SCH ×2 (09:13→21:36)
[2020-10-13 09:16] LABS: ANISOCYTOSIS 1+; MACROCYTOSIS 2+; PLATELET ESTIMATE DECREASED
[2020-10-13] MEDS: VALPROATE SODIUM 250 MG/5 ML UNIT DOSE CUP PO SCH ×2 (09:33→21:32)
[2020-10-13] MEDS: LACTOBACILLUS ACIDOPHILUS 1 TABLET PO SCH (09:33)
[2020-10-13] MEDS: QUEtiapine FUMARATE 100 MG TABLET (FP) PO SCH ×2 (09:34→21:33)
[2020-10-13] MEDS: MULTIVITAMINS (DAILY MVI) TABLET (FP) PO SCH (09:34)
[2020-10-13] MEDS: levETIRAcetam 500 MG TABLET (FP) PO SCH ×2 (09:34→21:33)
[2020-10-13] MEDS: ASCORBIC ACID 500 MG TABLET (FP) PO SCH ×2 (09:34→21:33)
[2020-10-13] MEDS: ZINC OXIDE 20% TOPICAL OINTMENT 30 GM TUBE TP SCH ×2 (10:09→21:35)
[2020-10-13] MEDS: NYSTATIN 100000 UNIT/GM TOPICAL OINTMENT 15 GM TUBE TP SCH ×2 (13:27→21:35)
[2020-10-13 15:07] LABS: BASO % 0.5 % (0-2.0); EOS % 0.6 % (0-4.5); HEMATOCRIT 24.7 % (32.4-45.2); HEMOGLOBIN 8.6 GM/dL (10.7-15.3); LYMPH % 24.9 % (8-40); MCH 34.2 pg (25.7-33.7); MCHC 34.8 g/dl (32.0-36.0); MEAN CELL VOLUME 98.2 fl (80-96); MONO % 11.1 % (3.8-10.2); NEUT % 62.9 % (42.8-82.8); RBC 2.51 M/mm3 (3.60-5.2); RDW 18.3 % (11.6-15.6); WHITE BLOOD COUNT 3.7 K/mm3 (4.0-10.0)
[2020-10-13 15:23] LABS: CHLORIDE 109 mmol/L (98-107); SODIUM 141 mmol/L (136-145)
[2020-10-13 15:25] LABS: ANION GAP 4 MMOL/L (8-16); BLOOD UREA NITROGEN 3.6 mg/dL (7-18); CALCIUM 7.6 mg/dL (8.5-10.1); CO2 28 mmol/L (21-32); GLUCOSE,RANDOM 94 mg/dL (74-106)
[2020-10-13 15:28] LABS: SGOT/AST 24 U/L (15-37); SGPT/ALT 18 U/L (13-61)
[2020-10-13 15:30] LABS: BILIRUBIN,TOTAL 0.9 mg/dL (0.2-1); TOT PROT 4.3 g/dl (6.4-8.2)
[2020-10-13] MEDS: AMINO ACIDS 4.25%/D5W 1,000 ML IV SCH ×2 (15:30→21:34)
[2020-10-13 15:31] LABS: ALK PHOS 214 U/L (45-117)
[2020-10-13 15:45] LABS: ALBUMIN 1.5 g/dl (3.4-5.0)
[2020-10-13 15:46] LABS: CREATININE < 0.2 mg/dL (0.55-1.3)
[2020-10-13 15:54] LABS: ANISOCYTOSIS 1+; MACROCYTOSIS 2+; PLATELET ESTIMATE DECREASED
[2020-10-13] MEDS: CHLORHEXIDINE GLUCONATE 4% CLEANSER FOR DECOLONIZATION TP SCH (21:32)
[2020-10-13] MEDS: ATORVASTATIN CA 20 MG TABLET (FP) PO SCH (21:33)
[2020-10-13] MEDS: FAT EMULSION/OLIVE/SOY/PHOSPHO 250 ML IV SCH (21:46)
[2020-10-13 22:45] LABS: BASO % 0.6 % (0-2.0); EOS % 0.6 % (0-4.5); HEMATOCRIT 25.1 % (32.4-45.2); HEMOGLOBIN 8.9 GM/dL (10.7-15.3); LYMPH % 22.6 % (8-40); MCH 34.8 pg (25.7-33.7); MCHC 35.5 g/dl (32.0-36.0); MEAN CELL VOLUME 98.1 fl (80-96); MEAN PLT VOLUME 9.7 fl (7.5-11.1); MONO % 9.1 % (3.8-10.2); NEUT % 67.1 % (42.8-82.8); RBC 2.56 M/mm3 (3.60-5.2); RDW 19.2 % (11.6-15.6); WHITE BLOOD COUNT 4.8 K/mm3 (4.0-10.0)
[2020-10-13 22:46] LABS: PLATELET COUNT 12 K/MM3 (134-434)
[2020-10-13 23:35] LABS: ANISOCYTOSIS 2+; PLATELET ESTIMATE DECREASED
[2020-10-14] MEDS: NOREPINEPHRINE BITARTRATE 16,000 MCG in SODIUM CHLORIDE 484 ML IV SCH
[2020-10-14] MEDS: VANCOMYCIN 250 MG/5 ML ORAL SOLUTION PO SCH ×4 (01:02→17:13)
[2020-10-14] MEDS: MEROPENEM 1 GM in DEXTROSE 5%-WATER 100 ML IVPB SCH ×3 (01:03→17:12)
[2020-10-14] MEDS: LEVOTHYROXINE NA 50 MCG TABLET (FP) PO SCH (06:04)
[2020-10-14 07:36] LABS: BASO % 0.4 % (0-2.0); EOS % 0.5 % (0-4.5); HEMATOCRIT 27.7 % (32.4-45.2); HEMOGLOBIN 9.7 GM/dL (10.7-15.3); LYMPH % 29.2 % (8-40); MCH 34.9 pg (25.7-33.7); MCHC 35.2 g/dl (32.0-36.0); MEAN CELL VOLUME 99.3 fl (80-96); MEAN PLT VOLUME 9.6 fl (7.5-11.1); MONO % 11.2 % (3.8-10.2); NEUT % 58.7 % (42.8-82.8); RBC 2.79 M/mm3 (3.60-5.2); RDW 18.9 % (11.6-15.6); WHITE BLOOD COUNT 4.9 K/mm3 (4.0-10.0)
[2020-10-14 07:53] LABS: PLATELET COUNT 13 K/MM3 (134-434)
[2020-10-14 08:04] LABS: CHLORIDE 110 mmol/L (98-107); SODIUM 141 mmol/L (136-145)
[2020-10-14 08:07] LABS: CALCIUM 7.2 mg/dL (8.5-10.1)
[2020-10-14 08:08] LABS: ALBUMIN 1.3 g/dl (3.4-5.0); ANION GAP 4 MMOL/L (8-16); BLOOD UREA NITROGEN 4.4 mg/dL (7-18); CO2 27 mmol/L (21-32); GLUCOSE,RANDOM 95 mg/dL (74-106); MAGNESIUM 1.9 mg/dL (1.8-2.4)
[2020-10-14 08:11] LABS: PHOSPHOROUS 1.9 mg/dL (2.5-4.9); SGOT/AST 27 U/L (15-37); SGPT/ALT 20 U/L (13-61)
[2020-10-14 08:12] LABS: BILIRUBIN,TOTAL 0.8 mg/dL (0.2-1)
[2020-10-14 08:13] LABS: TOT PROT 4.1 g/dl (6.4-8.2)
[2020-10-14 08:14] LABS: ALK PHOS 237 U/L (45-117)
[2020-10-14] MEDS ORDERED: DEXTROSE 5%-WATER 100 ML IVPB ONE ×2 (08:47→17:03)
[2020-10-14] MEDS ORDERED: MEROPENEM 1 GM VIAL (RESTRICTED TO ID) IVPB ONE ×2 (08:47→17:02)
[2020-10-14] MEDS: VANCOMYCIN 1 GRAM (PRE-DOCKED) 1,000 MG/250 ML BAG IVPB SCH (09:00)
[2020-10-14] MEDS: QUEtiapine FUMARATE 100 MG TABLET (FP) PO SCH ×2 (09:01→21:30)
[2020-10-14] MEDS: PANTOPRAZOLE SODIUM 40 MG VIAL IVPUSH SCH (09:01)
[2020-10-14] MEDS: MULTIVITAMINS (DAILY MVI) TABLET (FP) PO SCH (09:01)
[2020-10-14] MEDS: LACTOBACILLUS ACIDOPHILUS 1 TABLET PO SCH (09:01)
[2020-10-14] MEDS: ASCORBIC ACID 500 MG TABLET (FP) PO SCH ×2 (09:01→21:30)
[2020-10-14] MEDS: levETIRAcetam 500 MG TABLET (FP) PO SCH ×2 (09:01→21:30)
[2020-10-14] MEDS: ZINC OXIDE 20% TOPICAL OINTMENT 30 GM TUBE TP SCH ×2 (09:06→21:32)
[2020-10-14] MEDS: MUPIROCIN 2% TOPICAL OINTMENT FOR DECOLONIZATION NS SCH ×2 (09:07→21:25)
[2020-10-14] MEDS: NYSTATIN 100000 UNIT/GM TOPICAL OINTMENT 15 GM TUBE TP SCH ×2 (09:07→21:32)
[2020-10-14] MEDS ORDERED: PT OWN MED DRAWER 7, Y5N ONE ×2 (09:16→21:29)
[2020-10-14] MEDS: VALPROATE SODIUM 250 MG/5 ML UNIT DOSE CUP PO SCH ×2 (09:17→21:31)
[2020-10-14 09:40] LABS: INR 1.23 (0.83-1.09); PROTHROMBIN TIME (PATIENT) 14.8 SEC (9.7-13.0)
[2020-10-14 09:42] LABS: ACTIVATED PTT 31.6 SECONDS (25.2-36.5)
[2020-10-14 09:50] LABS: CREATININE < 0.2 mg/dL (0.55-1.3)
[2020-10-14] MEDS ORDERED: LIDOCAINE VISCOUS 2% ORAL/TOP 20 ML UNIT-DOSE CUP MM ONE (11:00)
[2020-10-14 11:14] LABS: ANISOCYTOSIS 2+; MACROCYTOSIS 1+; PLATELET ESTIMATE DECREASED
[2020-10-14] MEDS: KCL 10 MEQ IVPB 10 MEQ/100 ML INFUS.BAG IVPB SCH ×2 (11:52→13:16)
[2020-10-14] MEDS: CHLORHEXIDINE GLUCONATE 4% CLEANSER FOR DECOLONIZATION TP SCH (21:26)
[2020-10-14] MEDS: ATORVASTATIN CA 20 MG TABLET (FP) PO SCH (21:30)
[2020-10-15] MEDS: VANCOMYCIN 250 MG/5 ML ORAL SOLUTION PO SCH ×3 (01:00→11:10)
[2020-10-15] MEDS ORDERED: DEXTROSE 5%-WATER 100 ML IVPB ONE ×2 (01:22→17:13)
[2020-10-15] MEDS ORDERED: MEROPENEM 1 GM VIAL (RESTRICTED TO ID) IVPB ONE ×3 (01:22→17:13)
[2020-10-15] MEDS: MEROPENEM 1 GM in DEXTROSE 5%-WATER 100 ML IVPB SCH ×3 (01:23→17:35)
[2020-10-15] MEDS: LEVOTHYROXINE NA 50 MCG TABLET (FP) PO SCH (06:00)
[2020-10-15 07:19] LABS: BASO % 0.5 % (0-2.0); EOS % 0.3 % (0-4.5); HEMATOCRIT 25.3 % (32.4-45.2); HEMOGLOBIN 8.9 GM/dL (10.7-15.3); LYMPH % 45.1 % (8-40); MCH 35.2 pg (25.7-33.7); MCHC 35.3 g/dl (32.0-36.0); MEAN CELL VOLUME 99.6 fl (80-96); MEAN PLT VOLUME 8.9 fl (7.5-11.1); MONO % 13.8 % (3.8-10.2); NEUT % 40.3 % (42.8-82.8); RBC 2.54 M/mm3 (3.60-5.2); WHITE BLOOD COUNT 4.2 K/mm3 (4.0-10.0)
[2020-10-15 07:22] LABS: PLATELET COUNT 24 K/MM3 (134-434)
[2020-10-15 07:36] LABS: CHLORIDE 112 mmol/L (98-107); SODIUM 143 mmol/L (136-145)
[2020-10-15 07:44] LABS: ALBUMIN 1.3 g/dl (3.4-5.0); ANION GAP 4 MMOL/L (8-16); CO2 28 mmol/L (21-32); GLUCOSE,RANDOM 80 mg/dL (74-106); SGOT/AST 25 U/L (15-37); SGPT/ALT 16 U/L (13-61)
[2020-10-15 07:46] LABS: BILIRUBIN,TOTAL 0.7 mg/dL (0.2-1); CALCIUM 7.2 mg/dL (8.5-10.1); MAGNESIUM 1.8 mg/dL (1.8-2.4); TOT PROT 4.2 g/dl (6.4-8.2)
[2020-10-15 07:47] LABS: PHOSPHOROUS 2.1 mg/dL (2.5-4.9)
[2020-10-15 07:58] LABS: CREATININE < 0.2 mg/dL (0.55-1.3)
[2020-10-15 07:59] LABS: ALK PHOS 194 U/L (45-117)
[2020-10-15] MEDS ORDERED: POTASSIUM PHOSPHATE 15 MM in SODIUM CHLORIDE 100 ML IVPB ONE (08:26)
[2020-10-15] MEDS ORDERED: PT OWN MED DRAWER 7, Y5N ONE ×3 (09:31→23:08)
[2020-10-15] MEDS: MUPIROCIN 2% TOPICAL OINTMENT FOR DECOLONIZATION NS SCH ×2 (09:49→23:00)
[2020-10-15] MEDS: LACTOBACILLUS ACIDOPHILUS 1 TABLET PO SCH (09:49)
[2020-10-15] MEDS: QUEtiapine FUMARATE 100 MG TABLET (FP) PO SCH ×2 (09:50→23:00)
[2020-10-15] MEDS: MULTIVITAMINS (DAILY MVI) TABLET (FP) PO SCH (09:50)
[2020-10-15] MEDS: levETIRAcetam 500 MG TABLET (FP) PO SCH ×2 (09:50→23:00)
[2020-10-15] MEDS: PANTOPRAZOLE SODIUM 40 MG VIAL IVPUSH SCH (09:50)
[2020-10-15] MEDS: ASCORBIC ACID 500 MG TABLET (FP) PO SCH ×2 (09:50→23:00)
[2020-10-15 10:01] LABS: ANISOCYTOSIS 0; HELMET CELLS 0; HOWELL-JOLLY BODIES 0; MACROCYTOSIS 0; OVALOCYTE 0; PLATELET ESTIMATE DECREASED; ROULEAU 0; SICKELED CELLS 0; TARGET CELLS 0; TEAR DROP CELLS 0; TOXIC GRANULATION 0
[2020-10-15] MEDS: NYSTATIN 100000 UNIT/GM TOPICAL OINTMENT 15 GM TUBE TP SCH ×2 (10:35→23:00)
[2020-10-15] MEDS: VALPROATE SODIUM 250 MG/5 ML UNIT DOSE CUP PO SCH ×2 (10:35→23:00)
[2020-10-15] MEDS: ZINC OXIDE 20% TOPICAL OINTMENT 30 GM TUBE TP SCH ×2 (10:36→23:00)
[2020-10-15] MEDS ORDERED: SODIUM CHLORIDE 250 ML IV STA (12:04)
[2020-10-15] MEDS: ATORVASTATIN CA 20 MG TABLET (FP) PO SCH (23:00)
[2020-10-15] MEDS: CHLORHEXIDINE GLUCONATE 4% CLEANSER FOR DECOLONIZATION TP SCH (23:00)
[2020-10-16] MEDS ORDERED: MEROPENEM 1 GM VIAL (RESTRICTED TO ID) IVPB ONE ×3 (00:42→17:55)
[2020-10-16] MEDS ORDERED: PT OWN MED DRAWER 7, Y5N ONE ×2 (00:43→10:03)
[2020-10-16] MEDS ORDERED: DEXTROSE 5%-WATER 100 ML IVPB ONE ×3 (00:43→17:55)
[2020-10-16] MEDS: MEROPENEM 1 GM in DEXTROSE 5%-WATER 100 ML IVPB SCH ×3 (02:38→18:32)
[2020-10-16] MEDS: LEVOTHYROXINE NA 50 MCG TABLET (FP) PO SCH (06:26)
[2020-10-16 07:30] LABS: BASO % 0.7 % (0-2.0); EOS % 0.4 % (0-4.5); HEMATOCRIT 26.5 % (32.4-45.2); HEMOGLOBIN 9.3 GM/dL (10.7-15.3); LYMPH % 48.4 % (8-40); MCH 35.5 pg (25.7-33.7); MCHC 35.2 g/dl (32.0-36.0); MEAN CELL VOLUME 100.9 fl (80-96); MEAN PLT VOLUME 8.4 fl (7.5-11.1); MONO % 13.9 % (3.8-10.2); NEUT % 36.6 % (42.8-82.8); PLATELET COUNT 54 K/MM3 (134-434); RBC 2.63 M/mm3 (3.60-5.2); RDW 18.7 % (11.6-15.6)
[2020-10-16 07:37] LABS: CHLORIDE 108 mmol/L (98-107); SODIUM 140 mmol/L (136-145)
[2020-10-16 07:39] LABS: CALCIUM 7.3 mg/dL (8.5-10.1)
[2020-10-16 07:40] LABS: ALBUMIN 1.3 g/dl (3.4-5.0); ANION GAP 6 MMOL/L (8-16); BLOOD UREA NITROGEN 6.1 mg/dL (7-18); CO2 26 mmol/L (21-32); GLUCOSE,RANDOM 83 mg/dL (74-106); MAGNESIUM 1.9 mg/dL (1.8-2.4)
[2020-10-16 07:43] LABS: PHOSPHOROUS 2.8 mg/dL (2.5-4.9); SGOT/AST 19 U/L (15-37); SGPT/ALT 14 U/L (13-61)
[2020-10-16 07:44] LABS: BILIRUBIN,TOTAL 0.7 mg/dL (0.2-1)
[2020-10-16 07:45] LABS: TOT PROT 4.5 g/dl (6.4-8.2)
[2020-10-16 07:46] LABS: ALK PHOS 190 U/L (45-117)
[2020-10-16 08:18] LABS: PLATELET COUNT 8 K/MM3 (134-434)
[2020-10-16 08:20] LABS: PLATELET COUNT 15 K/MM3 (134-434)
[2020-10-16 08:33] LABS: CREATININE < 0.2 mg/dL (0.55-1.3)
[2020-10-16] MEDS: VALPROATE SODIUM 250 MG/5 ML UNIT DOSE CUP PO SCH ×2 (10:23→21:47)
[2020-10-16] MEDS: LACTOBACILLUS ACIDOPHILUS 1 TABLET PO SCH (10:25)
[2020-10-16] MEDS: ASCORBIC ACID 500 MG TABLET (FP) PO SCH ×2 (10:26→21:49)
[2020-10-16] MEDS: MULTIVITAMINS (DAILY MVI) TABLET (FP) PO SCH (10:26)
[2020-10-16] MEDS: QUEtiapine FUMARATE 100 MG TABLET (FP) PO SCH ×2 (10:27→21:48)
[2020-10-16] MEDS: PANTOPRAZOLE SODIUM 40 MG VIAL IVPUSH SCH (10:27)
[2020-10-16] MEDS: MUPIROCIN 2% TOPICAL OINTMENT FOR DECOLONIZATION NS SCH ×2 (10:28→21:48)
[2020-10-16] MEDS: levETIRAcetam 500 MG TABLET (FP) PO SCH ×2 (10:28→21:48)
[2020-10-16] MEDS: NYSTATIN 100000 UNIT/GM TOPICAL OINTMENT 15 GM TUBE TP SCH ×2 (10:29→21:50)
[2020-10-16] MEDS: ZINC OXIDE 20% TOPICAL OINTMENT 30 GM TUBE TP SCH ×2 (10:29→21:50)
[2020-10-16 10:34] LABS: ANISOCYTOSIS 1+; MACROCYTOSIS 1+; PLATELET ESTIMATE DECREASED
[2020-10-16] MEDS: HYDROmorphone HCl 2 MG/ML VIAL IVPUSH PRN (15:00)
[2020-10-16] MEDS: CHLORHEXIDINE GLUCONATE 4% CLEANSER FOR DECOLONIZATION TP SCH (21:47)
[2020-10-16] MEDS: ATORVASTATIN CA 20 MG TABLET (FP) PO SCH (21:48)
[2020-10-16] MEDS ORDERED: ONDANSETRON 4 MG/2 ML VIAL IVPUSH ONE (22:14)
[2020-10-17] MEDS ORDERED: MEROPENEM 1 GM VIAL (RESTRICTED TO ID) IVPB ONE ×3 (01:22→18:03)
[2020-10-17] MEDS ORDERED: DEXTROSE 5%-WATER 100 ML IVPB ONE ×3 (01:23→18:03)
[2020-10-17] MEDS: MEROPENEM 1 GM in DEXTROSE 5%-WATER 100 ML IVPB SCH ×3 (01:41→18:06)
[2020-10-17] MEDS: LEVOTHYROXINE NA 50 MCG TABLET (FP) PO SCH (06:31)
[2020-10-17 06:39] LABS: BASO % 0.6 % (0-2.0); EOS % 0.3 % (0-4.5); HEMOGLOBIN 9.2 GM/dL (10.7-15.3); LYMPH % 51.1 % (8-40); MCH 35.2 pg (25.7-33.7); MCHC 34.1 g/dl (32.0-36.0); MEAN CELL VOLUME 103.2 fl (80-96); MEAN PLT VOLUME 8.3 fl (7.5-11.1); MONO % 12.2 % (3.8-10.2); NEUT % 35.8 % (42.8-82.8); PLATELET COUNT 93 K/MM3 (134-434); RBC 2.62 M/mm3 (3.60-5.2); RDW 20.4 % (11.6-15.6); WHITE BLOOD COUNT 4.8 K/mm3 (4.0-10.0)
[2020-10-17 06:54] LABS: CHLORIDE 109 mmol/L (98-107); SODIUM 140 mmol/L (136-145)
[2020-10-17 07:02] LABS: ALBUMIN 1.3 g/dl (3.4-5.0); ANION GAP 4 MMOL/L (8-16); CALCIUM 7.4 mg/dL (8.5-10.1); CO2 28 mmol/L (21-32); MAGNESIUM 1.8 mg/dL (1.8-2.4)
[2020-10-17 07:03] LABS: GLUCOSE,RANDOM 85 mg/dL (74-106)
[2020-10-17 07:05] LABS: CREATININE < 0.2 mg/dL (0.55-1.3); PHOSPHOROUS 2.4 mg/dL (2.5-4.9); SGOT/AST 18 U/L (15-37); SGPT/ALT 13 U/L (13-61)
[2020-10-17 07:06] LABS: BILIRUBIN,TOTAL 0.6 mg/dL (0.2-1); TOT PROT 4.2 g/dl (6.4-8.2)
[2020-10-17 07:08] LABS: ALK PHOS 173 U/L (45-117)
[2020-10-17] MEDS ORDERED: PT OWN MED DRAWER 7, Y5N ONE ×3 (08:52→18:04)
[2020-10-17] MEDS: LACTOBACILLUS ACIDOPHILUS 1 TABLET PO SCH (09:02)
[2020-10-17] MEDS: levETIRAcetam 500 MG TABLET (FP) PO SCH ×2 (09:02→21:40)
[2020-10-17] MEDS: NYSTATIN 100000 UNIT/GM TOPICAL OINTMENT 15 GM TUBE TP SCH ×2 (09:02→21:41)
[2020-10-17] MEDS: PANTOPRAZOLE SODIUM 40 MG VIAL IVPUSH SCH (09:02)
[2020-10-17] MEDS: QUEtiapine FUMARATE 100 MG TABLET (FP) PO SCH ×2 (09:03→21:40)
[2020-10-17] MEDS: MUPIROCIN 2% TOPICAL OINTMENT FOR DECOLONIZATION NS SCH (09:03)
[2020-10-17] MEDS: ZINC OXIDE 20% TOPICAL OINTMENT 30 GM TUBE TP SCH ×2 (09:03→21:41)
[2020-10-17] MEDS: VALPROATE SODIUM 250 MG/5 ML UNIT DOSE CUP PO SCH ×2 (09:03→21:39)
[2020-10-17 09:17] LABS: ANISOCYTOSIS 2+; MACROCYTOSIS 1+; PLATELET ESTIMATE DECREASED; TOXIC GRANULATION 2+
[2020-10-17] MEDS: ASCORBIC ACID 500 MG TABLET (FP) PO SCH ×2 (09:56→21:40)
[2020-10-17] MEDS: MULTIVITAMINS (DAILY MVI) TABLET (FP) PO SCH (09:56)
[2020-10-17] MEDS ORDERED: SODIUM CHLORIDE 250 ML IV STA (11:20)
[2020-10-17] MEDS: VANCOMYCIN 250 MG/5 ML ORAL SOLUTION PO SCH ×3 (12:30→23:34)
[2020-10-17] MEDS: ATORVASTATIN CA 20 MG TABLET (FP) PO SCH (21:40)
[2020-10-17] MEDS: CHLORHEXIDINE GLUCONATE 4% CLEANSER FOR DECOLONIZATION TP SCH (21:40)
[2020-10-18] MEDS ORDERED: MEROPENEM 1 GM VIAL (RESTRICTED TO ID) IVPB ONE ×3 (02:46→17:38)
[2020-10-18] MEDS ORDERED: DEXTROSE 5%-WATER 100 ML IVPB ONE ×3 (02:46→17:38)
[2020-10-18] MEDS: MEROPENEM 1 GM in DEXTROSE 5%-WATER 100 ML IVPB SCH ×3 (02:55→17:41)
[2020-10-18] MEDS ORDERED: PT OWN MED DRAWER 7, Y5N ONE ×6 (06:23→22:56)
[2020-10-18] MEDS: VANCOMYCIN 250 MG/5 ML ORAL SOLUTION PO SCH ×3 (06:27→17:42)
[2020-10-18] MEDS: LEVOTHYROXINE NA 50 MCG TABLET (FP) PO SCH (06:28)
[2020-10-18 06:39] LABS: BASO % 0.7 % (0-2.0); EOS % 0.7 % (0-4.5); HEMATOCRIT 26.4 % (32.4-45.2); HEMOGLOBIN 8.9 GM/dL (10.7-15.3); LYMPH % 55.7 % (8-40); MCHC 33.6 g/dl (32.0-36.0); MEAN CELL VOLUME 104.3 fl (80-96); MEAN PLT VOLUME 7.8 fl (7.5-11.1); MONO % 12.9 % (3.8-10.2); PLATELET COUNT 164 K/MM3 (134-434); RBC 2.53 M/mm3 (3.60-5.2); RDW 21.7 % (11.6-15.6); WHITE BLOOD COUNT 4.8 K/mm3 (4.0-10.0)
[2020-10-18 06:54] LABS: CHLORIDE 112 mmol/L (98-107); SODIUM 144 mmol/L (136-145)
[2020-10-18 06:58] LABS: BLOOD UREA NITROGEN 4.5 mg/dL (7-18); CALCIUM 7.2 mg/dL (8.5-10.1)
[2020-10-18 06:59] LABS: ALBUMIN 1.2 g/dl (3.4-5.0); ANION GAP 2 MMOL/L (8-16); CO2 30 mmol/L (21-32); GLUCOSE,RANDOM 94 mg/dL (74-106); MAGNESIUM 1.9 mg/dL (1.8-2.4)
[2020-10-18 07:01] LABS: SGPT/ALT 10 U/L (13-61)
[2020-10-18 07:02] LABS: CREATININE < 0.2 mg/dL (0.55-1.3); PHOSPHOROUS 2.3 mg/dL (2.5-4.9); SGOT/AST 21 U/L (15-37)
[2020-10-18 07:03] LABS: BILIRUBIN,TOTAL 0.6 mg/dL (0.2-1); TOT PROT 4.3 g/dl (6.4-8.2)
[2020-10-18 07:04] LABS: ALK PHOS 166 U/L (45-117)
[2020-10-18] MEDS ORDERED: SODIUM PHOSPHATE - 15 MM in DEXTROSE 5%-WATER - 250 ML IVPB ONE (07:51)
[2020-10-18] MEDS: NOREPINEPHRINE BITARTRATE 16,000 MCG in SODIUM CHLORIDE 484 ML IV SCH ×2 (09:50→11:12)
[2020-10-18] MEDS: MULTIVIT-MINERALS ORAL LIQUID PO SCH (09:53)
[2020-10-18] MEDS: VALPROATE SODIUM 250 MG/5 ML UNIT DOSE CUP PO SCH ×2 (09:53→22:12)
[2020-10-18 10:29] LABS: ANISOCYTOSIS 1+; MACROCYTOSIS 0; OVALOCYTE 1+; PLATELET ESTIMATE NORMAL
[2020-10-18] MEDS: LACTOBACILLUS ACIDOPHILUS 1 TABLET PO SCH (10:55)
[2020-10-18] MEDS: levETIRAcetam 500 MG TABLET (FP) PO SCH ×2 (10:55→22:13)
[2020-10-18] MEDS: NYSTATIN 100000 UNIT/GM TOPICAL OINTMENT 15 GM TUBE TP SCH ×2 (10:55→22:14)
[2020-10-18] MEDS: ASCORBIC ACID 500 MG TABLET (FP) PO SCH ×2 (10:55→22:13)
[2020-10-18] MEDS: QUEtiapine FUMARATE 100 MG TABLET (FP) PO SCH ×2 (10:55→22:13)
[2020-10-18] MEDS: ZINC OXIDE 20% TOPICAL OINTMENT 30 GM TUBE TP SCH ×2 (10:55→22:14)
[2020-10-18] MEDS: MIDODRINE HCL 2.5 MG TABLET PO SCH ×2 (13:49→17:42)
[2020-10-18] MEDS: CHLORHEXIDINE GLUCONATE 4% CLEANSER FOR DECOLONIZATION TP SCH (22:13)
[2020-10-18] MEDS: ATORVASTATIN CA 20 MG TABLET (FP) PO SCH (22:14)
[2020-10-19] MEDS ORDERED: MEROPENEM 1 GM VIAL (RESTRICTED TO ID) IVPB ONE ×3 (00:55→18:13)
[2020-10-19] MEDS ORDERED: DEXTROSE 5%-WATER 100 ML IVPB ONE ×3 (00:55→18:13)
[2020-10-19] MEDS: VANCOMYCIN 250 MG/5 ML ORAL SOLUTION PO SCH ×4 (00:58→18:16)
[2020-10-19] MEDS: MEROPENEM 1 GM in DEXTROSE 5%-WATER 100 ML IVPB SCH ×3 (01:00→18:17)
[2020-10-19] MEDS: LEVOTHYROXINE NA 50 MCG TABLET (FP) PO SCH (06:30)
[2020-10-19 06:58] LABS: BASO % 0.3 % (0-2.0); EOS % 0.5 % (0-4.5); HEMATOCRIT 29.1 % (32.4-45.2); HEMOGLOBIN 9.8 GM/dL (10.7-15.3); LYMPH % 54.8 % (8-40); MCHC 33.6 g/dl (32.0-36.0); MEAN CELL VOLUME 104.2 fl (80-96); MEAN PLT VOLUME 7.9 fl (7.5-11.1); NEUT % 34.4 % (42.8-82.8); PLATELET COUNT 260 K/MM3 (134-434); RDW 24.1 % (11.6-15.6); WHITE BLOOD COUNT 4.7 K/mm3 (4.0-10.0)
[2020-10-19 07:30] LABS: CHLORIDE 106 mmol/L (98-107); SODIUM 138 mmol/L (136-145)
[2020-10-19 07:38] LABS: ALBUMIN 1.4 g/dl (3.4-5.0); ANION GAP 4 MMOL/L (8-16); BLOOD UREA NITROGEN 4.6 mg/dL (7-18); CO2 29 mmol/L (21-32); GLUCOSE,RANDOM 96 mg/dL (74-106)
[2020-10-19 07:39] LABS: CALCIUM 7.7 mg/dL (8.5-10.1)
[2020-10-19 07:40] LABS: CREATININE < 0.2 mg/dL (0.55-1.3); SGOT/AST 21 U/L (15-37); SGPT/ALT 12 U/L (13-61)
[2020-10-19 07:42] LABS: PHOSPHOROUS 3.4 mg/dL (2.5-4.9)
[2020-10-19 07:43] LABS: BILIRUBIN,TOTAL 0.9 mg/dL (0.2-1)
[2020-10-19 07:47] LABS: ALK PHOS 175 U/L (45-117)
[2020-10-19] MEDS ORDERED: PT OWN MED DRAWER 7, Y5N ONE ×3 (09:53→21:16)
[2020-10-19] MEDS: ASCORBIC ACID 500 MG TABLET (FP) PO SCH ×2 (10:53→21:27)
[2020-10-19] MEDS: levETIRAcetam 500 MG TABLET (FP) PO SCH ×2 (10:53→21:27)
[2020-10-19] MEDS: VALPROATE SODIUM 250 MG/5 ML UNIT DOSE CUP PO SCH ×2 (10:54→21:27)
[2020-10-19] MEDS: QUEtiapine FUMARATE 100 MG TABLET (FP) PO SCH ×2 (10:54→21:27)
[2020-10-19] MEDS: MIDODRINE HCL 5 MG TABLET PO SCH ×3 (10:54→18:16)
[2020-10-19] MEDS: LACTOBACILLUS ACIDOPHILUS 1 TABLET PO SCH (10:54)
[2020-10-19] MEDS: NYSTATIN 100000 UNIT/GM TOPICAL OINTMENT 15 GM TUBE TP SCH ×2 (10:54→21:28)
[2020-10-19] MEDS: MULTIVIT-MINERALS ORAL LIQUID PO SCH (10:57)
[2020-10-19] MEDS: ZINC OXIDE 20% TOPICAL OINTMENT 30 GM TUBE TP SCH ×2 (11:00→21:28)
[2020-10-19] MEDS: ATORVASTATIN CA 20 MG TABLET (FP) PO SCH (21:27)
[2020-10-19] MEDS: CHLORHEXIDINE GLUCONATE 4% CLEANSER FOR DECOLONIZATION TP SCH (21:27)
[2020-10-20] MEDS ORDERED: MEROPENEM 1 GM VIAL (RESTRICTED TO ID) IVPB ONE ×4 (00:59→21:06)
[2020-10-20] MEDS ORDERED: DEXTROSE 5%-WATER 100 ML IVPB ONE ×4 (00:59→21:06)
[2020-10-20] MEDS: MEROPENEM 1 GM in DEXTROSE 5%-WATER 100 ML IVPB SCH ×3 (01:02→18:09)
[2020-10-20] MEDS: VANCOMYCIN 250 MG/5 ML ORAL SOLUTION PO SCH ×4 (01:02→18:10)
[2020-10-20] MEDS: LEVOTHYROXINE NA 50 MCG TABLET (FP) PO SCH (06:05)
[2020-10-20] MEDS ORDERED: PT OWN MED DRAWER 7, Y5N ONE ×2 (09:04→21:07)
[2020-10-20] MEDS: MULTIVIT-MINERALS ORAL LIQUID PO SCH (09:15)
[2020-10-20] MEDS: VALPROATE SODIUM 250 MG/5 ML UNIT DOSE CUP PO SCH ×2 (09:15→21:14)
[2020-10-20] MEDS: MIDODRINE HCL 5 MG TABLET PO SCH ×3 (09:15→18:09)
[2020-10-20] MEDS: ASCORBIC ACID 500 MG TABLET (FP) PO SCH ×2 (09:16→21:22)
[2020-10-20] MEDS: LACTOBACILLUS ACIDOPHILUS 1 TABLET PO SCH (09:16)
[2020-10-20] MEDS: levETIRAcetam 500 MG TABLET (FP) PO SCH ×2 (09:16→21:22)
[2020-10-20] MEDS: QUEtiapine FUMARATE 100 MG TABLET (FP) PO SCH ×2 (09:16→21:17)
[2020-10-20] MEDS: NYSTATIN 100000 UNIT/GM TOPICAL OINTMENT 15 GM TUBE TP SCH ×2 (09:17→21:25)
[2020-10-20] MEDS: ZINC OXIDE 20% TOPICAL OINTMENT 30 GM TUBE TP SCH ×2 (09:17→21:24)
[2020-10-20] MEDS ORDERED: ALBUMIN HUMAN 25% 12.5 GM/50 ML VIAL IVPB ONE (09:30)
[2020-10-20] MEDS ORDERED: FUROSEMIDE 40 MG/4 ML INJECTABLE VIAL IVPUSH ONE (10:00)
[2020-10-20] MEDS: AMINO ACIDS 4.25%/D5W 1,000 ML IV SCH (11:50)
[2020-10-20] MEDS: ATORVASTATIN CA 20 MG TABLET (FP) PO SCH (21:22)
[2020-10-20] MEDS: CHLORHEXIDINE GLUCONATE 4% CLEANSER FOR DECOLONIZATION TP SCH (21:22)
[2020-10-21] MEDS: VANCOMYCIN 250 MG/5 ML ORAL SOLUTION PO SCH ×5 (00:10→23:59)
[2020-10-21] MEDS: MEROPENEM 1 GM in DEXTROSE 5%-WATER 100 ML IVPB SCH ×2 (01:41→10:44)
[2020-10-21] MEDS: LEVOTHYROXINE NA 50 MCG TABLET (FP) PO SCH (06:09)
[2020-10-21 07:10] LABS: BASO % 0.9 % (0-2.0); HEMATOCRIT 26.2 % (32.4-45.2); HEMOGLOBIN 8.9 GM/dL (10.7-15.3); LYMPH % 45.1 % (8-40); MCH 35.6 pg (25.7-33.7); MCHC 33.9 g/dl (32.0-36.0); MEAN CELL VOLUME 105.1 fl (80-96); MEAN PLT VOLUME 7.9 fl (7.5-11.1); MONO % 9.5 % (3.8-10.2); NEUT % 43.5 % (42.8-82.8); PLATELET COUNT 297 K/MM3 (134-434); RBC 2.49 M/mm3 (3.60-5.2); WHITE BLOOD COUNT 4.5 K/mm3 (4.0-10.0)
[2020-10-21 07:38] LABS: CHLORIDE 106 mmol/L (98-107); SODIUM 139 mmol/L (136-145)
[2020-10-21 07:40] LABS: ALBUMIN 1.3 g/dl (3.4-5.0); ANION GAP 5 MMOL/L (8-16); BLOOD UREA NITROGEN 5.7 mg/dL (7-18); CALCIUM 7.3 mg/dL (8.5-10.1); CO2 28 mmol/L (21-32); GLUCOSE,RANDOM 98 mg/dL (74-106)
[2020-10-21 07:44] LABS: PHOSPHOROUS 2.2 mg/dL (2.5-4.9); SGOT/AST 20 U/L (15-37); SGPT/ALT 12 U/L (13-61)
[2020-10-21 07:45] LABS: BILIRUBIN,TOTAL 0.5 mg/dL (0.2-1); TOT PROT 4.7 g/dl (6.4-8.2)
[2020-10-21 07:46] LABS: ALK PHOS 148 U/L (45-117)
[2020-10-21 07:54] LABS: CREATININE < 0.2 mg/dL (0.55-1.3)
[2020-10-21] MEDS ORDERED: POTASSIUM PHOSPHATE 30 MM in DEXTROSE 5%-WATER - 500 ML IVPB ONE (09:00)
[2020-10-21] MEDS ORDERED: DEXTROSE 5%-WATER 100 ML IVPB ONE (10:04)
[2020-10-21] MEDS ORDERED: MEROPENEM 1 GM VIAL (RESTRICTED TO ID) IVPB ONE (10:04)
[2020-10-21] MEDS ORDERED: PT OWN MED DRAWER 7, Y5N ONE ×3 (10:09→21:07)
[2020-10-21] MEDS: VALPROATE SODIUM 250 MG/5 ML UNIT DOSE CUP PO SCH ×2 (10:39→21:11)
[2020-10-21] MEDS: MULTIVIT-MINERALS ORAL LIQUID PO SCH (10:40)
[2020-10-21] MEDS: QUEtiapine FUMARATE 100 MG TABLET (FP) PO SCH ×2 (10:41→21:11)
[2020-10-21] MEDS: ASCORBIC ACID 500 MG TABLET (FP) PO SCH ×2 (10:41→21:11)
[2020-10-21] MEDS: LACTOBACILLUS ACIDOPHILUS 1 TABLET PO SCH (10:41)
[2020-10-21] MEDS: levETIRAcetam 500 MG TABLET (FP) PO SCH ×2 (10:42→21:11)
[2020-10-21] MEDS: ZINC OXIDE 20% TOPICAL OINTMENT 30 GM TUBE TP SCH ×2 (10:43→21:12)
[2020-10-21] MEDS: NYSTATIN 100000 UNIT/GM TOPICAL OINTMENT 15 GM TUBE TP SCH ×2 (10:43→21:12)
[2020-10-21] MEDS: MIDODRINE HCL 5 MG TABLET PO SCH ×4 (10:44→21:11)
[2020-10-21] MEDS ORDERED: MIDODRINE HCL 5 MG TABLET PO SCH (10:45)
[2020-10-21] MEDS ORDERED: ALBUMIN HUMAN 25% 100 ML VIAL IVPB ONE (11:00)
[2020-10-21] MEDS ORDERED: FUROSEMIDE 40 MG/4 ML INJECTABLE VIAL IVPUSH ONE (12:00)
[2020-10-21] MEDS: AMINO ACIDS 4.25%/D5W 1,000 ML IV SCH ×2 (17:11→19:00)
[2020-10-21] MEDS: AMINO ACIDS/PROTEIN HYDROLYS 30 ML LIQUID.PKT PO SCH (17:13)
[2020-10-21] MEDS ORDERED: MORPHINE SULFATE 2 MG/ML VIAL ONE (17:34)
[2020-10-21] MEDS ORDERED: MORPHINE SULFATE 2 MG/ML VIAL IVPUSH ONE (17:47)
[2020-10-21] MEDS: CHLORHEXIDINE GLUCONATE 4% CLEANSER FOR DECOLONIZATION TP SCH (21:10)
[2020-10-21] MEDS: ATORVASTATIN CA 20 MG TABLET (FP) PO SCH (21:11)
[2020-10-22] MEDS: VANCOMYCIN 250 MG/5 ML ORAL SOLUTION PO SCH ×3 (06:07→18:17)
[2020-10-22] MEDS: MIDODRINE HCL 5 MG TABLET PO SCH ×3 (06:08→22:51)
[2020-10-22] MEDS: LEVOTHYROXINE NA 50 MCG TABLET (FP) PO SCH (06:08)
[2020-10-22] MEDS ORDERED: PT OWN MED DRAWER 7, Y5N ONE ×6 (08:48→18:21)
[2020-10-22] MEDS: AMINO ACIDS/PROTEIN HYDROLYS 30 ML LIQUID.PKT PO SCH ×2 (08:53→18:16)
[2020-10-22] MEDS: ASCORBIC ACID 500 MG TABLET (FP) PO SCH ×2 (09:21→22:51)
[2020-10-22] MEDS: levETIRAcetam 500 MG TABLET (FP) PO SCH ×2 (09:21→22:50)
[2020-10-22] MEDS: LACTOBACILLUS ACIDOPHILUS 1 TABLET PO SCH (09:21)
[2020-10-22] MEDS: MULTIVIT-MINERALS ORAL LIQUID PO SCH (09:21)
[2020-10-22] MEDS: QUEtiapine FUMARATE 100 MG TABLET (FP) PO SCH ×2 (09:22→22:51)
[2020-10-22] MEDS: NYSTATIN 100000 UNIT/GM TOPICAL OINTMENT 15 GM TUBE TP SCH (09:28)
[2020-10-22] MEDS: ZINC OXIDE 20% TOPICAL OINTMENT 30 GM TUBE TP SCH ×2 (09:28→22:54)
[2020-10-22] MEDS: VALPROATE SODIUM 250 MG/5 ML UNIT DOSE CUP PO SCH ×2 (11:38→22:50)
[2020-10-22] MEDS ORDERED: ALBUMIN HUMAN 25% 12.5 GM/50 ML VIAL IVPB ONE (12:00)
[2020-10-22] MEDS ORDERED: FUROSEMIDE 40 MG/4 ML INJECTABLE VIAL IVPUSH ONE (12:35)
[2020-10-22] MEDS: AMINO ACIDS 4.25%/D5W 1,000 ML IV SCH (12:41)
[2020-10-22] MEDS ORDERED: ZINC OXIDE/PETROLATUM,WHITE 1 APPLIC OINT...G. TP PRN (18:40)
[2020-10-22] MEDS ORDERED: ARTIFICIAL TEARS (POLYVINYL ALCOHOL) OPTH DROPS OU PRN (18:40)
[2020-10-22] MEDS ORDERED: TRIPLE LUMEN FLUSH 4 ML ML IVPUSH PRN (18:40)
[2020-10-22] MEDS ORDERED: CHLORHEXIDINE GLUCONATE 4% CLEANSER FOR DECOLONIZATION TP SCH (22:00)
[2020-10-22] MEDS: ATORVASTATIN CA 20 MG TABLET (FP) PO SCH (22:50)
[2020-10-23] MEDS: VANCOMYCIN 250 MG/5 ML ORAL SOLUTION PO SCH ×4 (01:34→17:36)
[2020-10-23] MEDS ORDERED: traMADol HCL 50 MG TABLET PO ONE (02:10)
[2020-10-23] MEDS: NYSTATIN 100000 UNIT/GM TOPICAL OINTMENT 15 GM TUBE TP SCH ×3 (02:15→21:45)
[2020-10-23] MEDS: AMINO ACIDS 4.25%/D5W 1,000 ML IV SCH ×2 (03:45→10:51)
[2020-10-23] MEDS: LEVOTHYROXINE NA 50 MCG TABLET (FP) PO SCH (06:52)
[2020-10-23] MEDS: MIDODRINE HCL 5 MG TABLET PO SCH ×3 (06:53→21:44)
[2020-10-23] MEDS: AMINO ACIDS/PROTEIN HYDROLYS 30 ML LIQUID.PKT PO SCH ×2 (08:28→17:36)
[2020-10-23 08:31] LABS: BASO % 0.8 % (0-2.0); EOS % 0.6 % (0-4.5); HEMATOCRIT 25.2 % (32.4-45.2); HEMOGLOBIN 8.7 GM/dL (10.7-15.3); MCH 36.3 pg (25.7-33.7); MCHC 34.6 g/dl (32.0-36.0); MEAN CELL VOLUME 104.9 fl (80-96); MEAN PLT VOLUME 8.1 fl (7.5-11.1); MONO % 6.5 % (3.8-10.2); NEUT % 55.1 % (42.8-82.8); PLATELET COUNT 282 K/MM3 (134-434); RDW 22.3 % (11.6-15.6); WHITE BLOOD COUNT 7.3 K/mm3 (4.0-10.0)
[2020-10-23 09:09] LABS: CHLORIDE 102 mmol/L (98-107); SODIUM 134 mmol/L (136-145)
[2020-10-23 09:14] LABS: ANION GAP 7 MMOL/L (8-16); BLOOD UREA NITROGEN 10.7 mg/dL (7-18); CALCIUM 7.9 mg/dL (8.5-10.1); CO2 25 mmol/L (21-32); GLUCOSE,RANDOM 93 mg/dL (74-106); MAGNESIUM 1.9 mg/dL (1.8-2.4)
[2020-10-23 09:16] LABS: PHOSPHOROUS 2.5 mg/dL (2.5-4.9); SGPT/ALT 20 U/L (13-61)
[2020-10-23 09:17] LABS: SGOT/AST 44 U/L (15-37)
[2020-10-23 09:18] LABS: BILIRUBIN,TOTAL 0.8 mg/dL (0.2-1); TOT PROT 5.6 g/dl (6.4-8.2)
[2020-10-23 09:19] LABS: ALK PHOS 123 U/L (45-117)
[2020-10-23 09:47] LABS: ALBUMIN 2.2 g/dl (3.4-5.0); CREATININE < 0.2 mg/dL (0.55-1.3)
[2020-10-23] MEDS ORDERED: PT OWN MED DRAWER 7, Y5N ONE ×3 (10:00→21:36)
[2020-10-23] MEDS: ASCORBIC ACID 500 MG TABLET (FP) PO SCH ×2 (10:13→21:44)
[2020-10-23] MEDS: QUEtiapine FUMARATE 100 MG TABLET (FP) PO SCH ×2 (10:13→21:43)
[2020-10-23] MEDS: LACTOBACILLUS ACIDOPHILUS 1 TABLET PO SCH (10:13)
[2020-10-23] MEDS: levETIRAcetam 500 MG TABLET (FP) PO SCH ×2 (10:13→21:44)
[2020-10-23] MEDS: MULTIVIT-MINERALS ORAL LIQUID PO SCH (10:14)
[2020-10-23] MEDS: VALPROATE SODIUM 250 MG/5 ML UNIT DOSE CUP PO SCH ×2 (10:15→21:45)
[2020-10-23] MEDS: ZINC OXIDE 20% TOPICAL OINTMENT 30 GM TUBE TP SCH ×2 (10:16→21:45)
[2020-10-23] MEDS: traMADol HCL 50 MG TABLET PO PRN ×2 (12:37→18:27)
[2020-10-23] MEDS: ATORVASTATIN CA 20 MG TABLET (FP) PO SCH (21:45)
[2020-10-24] MEDS: VANCOMYCIN 250 MG/5 ML ORAL SOLUTION PO SCH ×4 (00:27→18:29)
[2020-10-24] MEDS: MIDODRINE HCL 5 MG TABLET PO SCH ×5 (06:13→21:33)
[2020-10-24] MEDS: LEVOTHYROXINE NA 50 MCG TABLET (FP) PO SCH (06:13)
[2020-10-24] MEDS ORDERED: PT OWN MED DRAWER 7, Y5N ONE ×3 (08:42→20:27)
[2020-10-24] MEDS: AMINO ACIDS/PROTEIN HYDROLYS 30 ML LIQUID.PKT PO SCH (08:45)
[2020-10-24] MEDS: VALPROATE SODIUM 250 MG/5 ML UNIT DOSE CUP PO SCH (09:26)
[2020-10-24] MEDS: QUEtiapine FUMARATE 100 MG TABLET (FP) PO SCH ×4 (09:27→21:26)
[2020-10-24] MEDS: ASCORBIC ACID 500 MG TABLET (FP) PO SCH ×4 (09:27→21:33)
[2020-10-24] MEDS: MULTIVIT-MINERALS ORAL LIQUID PO SCH (09:27)
[2020-10-24] MEDS: levETIRAcetam 500 MG TABLET (FP) PO SCH (09:27)
[2020-10-24] MEDS: LACTOBACILLUS ACIDOPHILUS 1 TABLET PO SCH (09:27)
[2020-10-24] MEDS: ZINC OXIDE 20% TOPICAL OINTMENT 30 GM TUBE TP SCH ×2 (09:28→21:17)
[2020-10-24] MEDS: AMINO ACIDS 4.25%/D5W 1,000 ML IV SCH (10:47)
[2020-10-24] MEDS: traMADol HCL 50 MG TABLET PO PRN (10:48)
[2020-10-24] MEDS: DEXTROSE 5%-NORMAL SALINE 1,000 ML IV SCH ×2 (11:09→21:12)
[2020-10-24] MEDS: ONDANSETRON 4 MG/2 ML VIAL IVPUSH PRN (11:09)
[2020-10-24] MEDS: NYSTATIN 100000 UNIT/GM TOPICAL OINTMENT 15 GM TUBE TP SCH ×2 (11:35→21:16)
[2020-10-24] MEDS: COLLAGENASE CLOSTRIDIUM HIST. 30 GRAMS TUBE TP SCH (11:35)
[2020-10-24] MEDS ORDERED: ACETAMINOPHEN 1000 MG/100 ML VIAL (NON FORMULARY) IVPB PRN (16:33)
[2020-10-24] MEDS: levETIRAcetam 500 MG/5 ML INJECTION VIAL IVPB SCH (21:10)
[2020-10-24] MEDS ORDERED: VALPROATE SODIUM 500 MG/5 ML VIAL IVPB SCH (22:00)
[2020-10-24] MEDS: VALPROATE SODIUM INJECTION 1,000 MG in DEXTROSE 5%-WATER - 100 ML IVPB SCH (22:02)
[2020-10-25] MEDS: VANCOMYCIN 250 MG/5 ML ORAL SOLUTION PO SCH ×7 (00:10→23:15)
[2020-10-25] MEDS: MIDODRINE HCL 5 MG TABLET PO SCH ×4 (05:34→22:27)
[2020-10-25] MEDS ORDERED: PT OWN MED DRAWER 7, Y5N ONE ×2 (10:05→13:16)
[2020-10-25] MEDS: levETIRAcetam 500 MG/5 ML INJECTION VIAL IVPB SCH ×2 (10:12→22:28)
[2020-10-25] MEDS ORDERED: PHENOL 177 ML SPRAY BOTTLE MM PRN (10:55)
[2020-10-25] MEDS: MULTIVIT-MINERALS ORAL LIQUID PO SCH (11:02)
[2020-10-25] MEDS: LACTOBACILLUS ACIDOPHILUS 1 TABLET PO SCH (11:02)
[2020-10-25] MEDS: NYSTATIN 100000 UNIT/GM TOPICAL OINTMENT 15 GM TUBE TP SCH ×2 (11:03→22:28)
[2020-10-25] MEDS: COLLAGENASE CLOSTRIDIUM HIST. 30 GRAMS TUBE TP SCH (11:04)
[2020-10-25] MEDS: QUEtiapine FUMARATE 100 MG TABLET (FP) PO SCH ×2 (11:04→22:27)
[2020-10-25] MEDS: LEVOTHYROXINE SODIUM 100 MCG VIAL IVPUSH SCH (11:04)
[2020-10-25] MEDS: ASCORBIC ACID 500 MG TABLET (FP) PO SCH ×2 (11:05→22:26)
[2020-10-25] MEDS: ZINC OXIDE 20% TOPICAL OINTMENT 30 GM TUBE TP SCH ×2 (11:06→23:00)
[2020-10-25] MEDS: DEXTROSE 5%-NORMAL SALINE 1,000 ML IV SCH (11:06)
[2020-10-25] MEDS: AMINO ACIDS 4.25%/D5W 1,000 ML IV SCH (11:51)
[2020-10-25 11:57] LABS: BASO % 0.5 % (0-2.0); EOS % 0.9 % (0-4.5); HEMATOCRIT 26.6 % (32.4-45.2); HEMOGLOBIN 8.9 GM/dL (10.7-15.3); MCH 35.7 pg (25.7-33.7); MCHC 33.3 g/dl (32.0-36.0); MEAN CELL VOLUME 107.2 fl (80-96); MEAN PLT VOLUME 7.9 fl (7.5-11.1); MONO % 5.8 % (3.8-10.2); NEUT % 59.8 % (42.8-82.8); PLATELET COUNT 236 K/MM3 (134-434); RBC 2.49 M/mm3 (3.60-5.2); RDW 21.3 % (11.6-15.6); WHITE BLOOD COUNT 6.8 K/mm3 (4.0-10.0)
[2020-10-25 12:19] LABS: CHLORIDE 109 mmol/L (98-107); SODIUM 140 mmol/L (136-145)
[2020-10-25 12:21] LABS: CALCIUM 7.7 mg/dL (8.5-10.1)
[2020-10-25 12:22] LABS: ALBUMIN 1.8 g/dl (3.4-5.0); ANION GAP 4 MMOL/L (8-16); BLOOD UREA NITROGEN 4.7 mg/dL (7-18); CO2 27 mmol/L (21-32); GLUCOSE,RANDOM 77 mg/dL (74-106)
[2020-10-25 12:25] LABS: CREATININE < 0.2 mg/dL (0.55-1.3); SGOT/AST 59 U/L (15-37); SGPT/ALT 33 U/L (13-61)
[2020-10-25 12:27] LABS: BILIRUBIN,TOTAL 0.5 mg/dL (0.2-1); TOT PROT 5.4 g/dl (6.4-8.2)
[2020-10-25 12:28] LABS: ALK PHOS 115 U/L (45-117)
[2020-10-25] MEDS: VALPROATE SODIUM INJECTION 1,000 MG in DEXTROSE 5%-WATER - 100 ML IVPB SCH ×2 (13:53→22:30)
[2020-10-25] MEDS: ONDANSETRON 4 MG/2 ML VIAL IVPUSH PRN (23:24)
[2020-10-25] MEDS ORDERED: ACETAMINOPHEN 1000 MG/100 ML VIAL (NON FORMULARY) IVPB ONE (23:26)
[2020-10-26] MEDS: VANCOMYCIN 250 MG/5 ML ORAL SOLUTION PO SCH ×4 (06:45→23:00)
[2020-10-26] MEDS: MIDODRINE HCL 5 MG TABLET PO SCH ×3 (06:45→21:17)
[2020-10-26] MEDS ORDERED: PT OWN MED DRAWER 7, Y5N ONE ×3 (09:23→21:05)
[2020-10-26] MEDS: levETIRAcetam 500 MG/5 ML INJECTION VIAL IVPB SCH ×2 (09:38→21:17)
[2020-10-26] MEDS: MULTIVIT-MINERALS ORAL LIQUID PO SCH (09:38)
[2020-10-26] MEDS: LACTOBACILLUS ACIDOPHILUS 1 TABLET PO SCH (09:39)
[2020-10-26] MEDS: QUEtiapine FUMARATE 100 MG TABLET (FP) PO SCH ×2 (09:39→21:17)
[2020-10-26] MEDS: ASCORBIC ACID 500 MG TABLET (FP) PO SCH ×2 (09:39→21:17)
[2020-10-26] MEDS: DEXTROSE 5%-NORMAL SALINE 1,000 ML IV SCH ×3 (09:40→23:00)
[2020-10-26] MEDS: VALPROATE SODIUM INJECTION 1,000 MG in DEXTROSE 5%-WATER - 100 ML IVPB SCH ×2 (09:40→22:24)
[2020-10-26] MEDS: NYSTATIN 100000 UNIT/GM TOPICAL OINTMENT 15 GM TUBE TP SCH ×2 (10:40→21:17)
[2020-10-26] MEDS: COLLAGENASE CLOSTRIDIUM HIST. 30 GRAMS TUBE TP SCH (10:41)
[2020-10-26] MEDS: ZINC OXIDE 20% TOPICAL OINTMENT 30 GM TUBE TP SCH ×2 (10:43→21:18)
[2020-10-26] MEDS: LEVOTHYROXINE SODIUM 100 MCG VIAL IVPUSH SCH (10:46)
[2020-10-26] MEDS: AMINO ACIDS 4.25%/D5W 1,000 ML IV SCH (12:13)
[2020-10-27] MEDS: MIDODRINE HCL 5 MG TABLET PO SCH ×3 (06:27→21:24)
[2020-10-27] MEDS: VANCOMYCIN 250 MG/5 ML ORAL SOLUTION PO SCH ×4 (06:27→23:42)
[2020-10-27] MEDS ORDERED: PT OWN MED DRAWER 7, Y5N ONE ×2 (10:24→21:22)
[2020-10-27] MEDS: LACTOBACILLUS ACIDOPHILUS 1 TABLET PO SCH (10:25)
[2020-10-27] MEDS: MULTIVIT-MINERALS ORAL LIQUID PO SCH (10:26)
[2020-10-27] MEDS: QUEtiapine FUMARATE 100 MG TABLET (FP) PO SCH ×2 (10:26→21:24)
[2020-10-27] MEDS: VALPROATE SODIUM INJECTION 1,000 MG in DEXTROSE 5%-WATER - 100 ML IVPB SCH ×2 (10:27→22:03)
[2020-10-27] MEDS: ASCORBIC ACID 500 MG TABLET (FP) PO SCH ×2 (10:27→21:24)
[2020-10-27] MEDS: LEVOTHYROXINE SODIUM 100 MCG VIAL IVPUSH SCH (10:27)
[2020-10-27] MEDS: ZINC OXIDE 20% TOPICAL OINTMENT 30 GM TUBE TP SCH ×2 (10:50→21:42)
[2020-10-27] MEDS: COLLAGENASE CLOSTRIDIUM HIST. 30 GRAMS TUBE TP SCH (10:50)
[2020-10-27] MEDS: NYSTATIN 100000 UNIT/GM TOPICAL OINTMENT 15 GM TUBE TP SCH ×2 (10:51→21:42)
[2020-10-27] MEDS: levETIRAcetam 500 MG/5 ML INJECTION VIAL IVPB SCH ×2 (10:52→21:25)
[2020-10-27] MEDS: AMINO ACIDS 4.25%/D5W 1,000 ML IV SCH (10:53)
[2020-10-27] MEDS: DEXTROSE 5%-NORMAL SALINE 1,000 ML IV SCH ×2 (11:28→21:33)
[2020-10-27] MEDS: ONDANSETRON 4 MG/2 ML VIAL IVPUSH PRN (11:55)
[2020-10-28] MEDS: MIDODRINE HCL 5 MG TABLET PO SCH ×3 (06:12→21:25)
[2020-10-28] MEDS: VANCOMYCIN 250 MG/5 ML ORAL SOLUTION PO SCH (06:12)
[2020-10-28 07:44] LABS: BASO % 0.5 % (0-2.0); EOS % 1.2 % (0-4.5); HEMATOCRIT 24.9 % (32.4-45.2); HEMOGLOBIN 8.2 GM/dL (10.7-15.3); LYMPH % 35.3 % (8-40); MCH 35.4 pg (25.7-33.7); MCHC 33.1 g/dl (32.0-36.0); MEAN PLT VOLUME 8.3 fl (7.5-11.1); MONO % 7.8 % (3.8-10.2); NEUT % 55.2 % (42.8-82.8); PLATELET COUNT 173 K/MM3 (134-434); RBC 2.32 M/mm3 (3.60-5.2); RDW 20.6 % (11.6-15.6); WHITE BLOOD COUNT 5.7 K/mm3 (4.0-10.0)
[2020-10-28 07:56] LABS: CHLORIDE 114 mmol/L (98-107); SODIUM 142 mmol/L (136-145)
[2020-10-28 08:01] LABS: ALBUMIN 1.5 g/dl (3.4-5.0); BLOOD UREA NITROGEN 4.6 mg/dL (7-18); CALCIUM 7.6 mg/dL (8.5-10.1); CO2 21 mmol/L (21-32); GLUCOSE,RANDOM 109 mg/dL (74-106); MAGNESIUM 1.6 mg/dL (1.8-2.4)
[2020-10-28 08:03] LABS: SGPT/ALT 26 U/L (13-61)
[2020-10-28 08:04] LABS: BILIRUBIN,TOTAL 0.4 mg/dL (0.2-1); SGOT/AST 40 U/L (15-37)
[2020-10-28 08:06] LABS: ALK PHOS 89 U/L (45-117)
[2020-10-28 08:17] LABS: ANION GAP 7 MMOL/L (8-16); CREATININE < 0.2 mg/dL (0.55-1.3)
[2020-10-28 09:09] LABS: ANISOCYTOSIS 0; MACROCYTOSIS 2+; PLATELET ESTIMATE NORMAL
[2020-10-28] MEDS ORDERED: POTASSIUM CHLORIDE ORAL LIQUID 20 MEQ/15 ML PO ONE (09:15)
[2020-10-28] MEDS ORDERED: PT OWN MED DRAWER 7, Y5N ONE ×2 (09:37→20:06)
[2020-10-28] MEDS: LACTOBACILLUS ACIDOPHILUS 1 TABLET PO SCH (09:41)
[2020-10-28] MEDS: ASCORBIC ACID 500 MG TABLET (FP) PO SCH ×2 (09:41→21:26)
[2020-10-28] MEDS: VALPROATE SODIUM INJECTION 1,000 MG in DEXTROSE 5%-WATER - 100 ML IVPB SCH ×2 (09:43→22:09)
[2020-10-28] MEDS: MULTIVIT-MINERALS ORAL LIQUID PO SCH (09:46)
[2020-10-28] MEDS: LEVOTHYROXINE SODIUM 100 MCG VIAL IVPUSH SCH (09:47)
[2020-10-28] MEDS: QUEtiapine FUMARATE 100 MG TABLET (FP) PO SCH ×2 (09:59→21:26)
[2020-10-28] MEDS: NYSTATIN 100000 UNIT/GM TOPICAL OINTMENT 15 GM TUBE TP SCH ×2 (10:00→21:27)
[2020-10-28] MEDS: levETIRAcetam 500 MG/5 ML INJECTION VIAL IVPB SCH ×2 (10:45→21:22)
[2020-10-28] MEDS: POLYETHYLENE GLYCOL 3350 119 GM BTL PO SCH (11:21)
[2020-10-28] MEDS: KCL 10 MEQ IVPB 10 MEQ/100 ML INFUS.BAG IVPB SCH ×3 (11:22→15:08)
[2020-10-28] MEDS: COLLAGENASE CLOSTRIDIUM HIST. 30 GRAMS TUBE TP SCH (11:22)
[2020-10-28] MEDS: ZINC OXIDE 20% TOPICAL OINTMENT 30 GM TUBE TP SCH ×2 (11:23→21:28)
[2020-10-28] MEDS: ACETAMINOPHEN 325 MG TABLET (FP) PO PRN (12:01)
[2020-10-28] MEDS ORDERED: MAGNESIUM SULF 50% (8.12 MEQ/2 ML-1 GM VIAL) IVPB ONE ×2 (12:52→15:15)
[2020-10-28] MEDS: AMINO ACIDS 4.25%/D5W 1,000 ML IV SCH (14:15)
[2020-10-28] MEDS: CLOTRIMAZOLE 1% CREAM 15 GM TUBE TP SCH ×2 (15:08→21:27)
[2020-10-29] MEDS: ACETAMINOPHEN 325 MG TABLET (FP) PO PRN ×2 (04:15→16:42)
[2020-10-29] MEDS: MIDODRINE HCL 5 MG TABLET PO SCH ×3 (06:16→21:01)
[2020-10-29 07:53] LABS: BASO % 0.3 % (0-2.0); EOS % 2.9 % (0-4.5); HEMATOCRIT 22.2 % (32.4-45.2); HEMOGLOBIN 7.5 GM/dL (10.7-15.3); LYMPH % 41.2 % (8-40); MCH 36.3 pg (25.7-33.7); MCHC 33.9 g/dl (32.0-36.0); MEAN CELL VOLUME 107.1 fl (80-96); MEAN PLT VOLUME 8.1 fl (7.5-11.1); MONO % 8.1 % (3.8-10.2); NEUT % 47.5 % (42.8-82.8); PLATELET COUNT 155 10^3/uL (134-434); RBC 2.08 M/mm3 (3.60-5.2); WHITE BLOOD COUNT 4.2 K/mm3 (4.0-10.0)
[2020-10-29 08:02] LABS: CHLORIDE 114 mmol/L (98-107); SODIUM 141 mmol/L (136-145)
[2020-10-29 08:04] LABS: BLOOD UREA NITROGEN 6.5 mg/dL (7-18)
[2020-10-29 08:05] LABS: ALBUMIN 1.5 g/dl (3.4-5.0); ANION GAP 6 MMOL/L (8-16); CO2 21 mmol/L (21-32); GLUCOSE,RANDOM 76 mg/dL (74-106); MAGNESIUM 2.2 mg/dL (1.8-2.4)
[2020-10-29 08:08] LABS: SGOT/AST 29 U/L (15-37); SGPT/ALT 24 U/L (13-61)
[2020-10-29 08:09] LABS: BILIRUBIN,TOTAL 0.3 mg/dL (0.2-1); TOT PROT 5.2 g/dl (6.4-8.2)
[2020-10-29 08:11] LABS: ALK PHOS 90 U/L (45-117)
[2020-10-29 08:48] LABS: CREATININE < 0.2 mg/dL (0.55-1.3)
[2020-10-29] MEDS ORDERED: PT OWN MED DRAWER 7, Y5N ONE ×2 (09:44→12:43)
[2020-10-29] MEDS: LACTOBACILLUS ACIDOPHILUS 1 TABLET PO SCH (09:51)
[2020-10-29] MEDS: MULTIVIT-MINERALS ORAL LIQUID PO SCH (09:52)
[2020-10-29] MEDS: ASCORBIC ACID 500 MG TABLET (FP) PO SCH ×2 (09:52→21:00)
[2020-10-29] MEDS: levETIRAcetam 500 MG/5 ML INJECTION VIAL IVPB SCH ×2 (09:52→21:02)
[2020-10-29] MEDS: QUEtiapine FUMARATE 100 MG TABLET (FP) PO SCH ×2 (09:52→21:00)
[2020-10-29] MEDS: LEVOTHYROXINE SODIUM 100 MCG VIAL IVPUSH SCH (09:53)
[2020-10-29] MEDS: COLLAGENASE CLOSTRIDIUM HIST. 30 GRAMS TUBE TP SCH (09:56)
[2020-10-29] MEDS: CLOTRIMAZOLE 1% CREAM 15 GM TUBE TP SCH ×2 (09:56→21:02)
[2020-10-29] MEDS: NYSTATIN 100000 UNIT/GM TOPICAL OINTMENT 15 GM TUBE TP SCH ×2 (09:57→21:03)
[2020-10-29] MEDS: VALPROATE SODIUM INJECTION 1,000 MG in DEXTROSE 5%-WATER - 100 ML IVPB SCH ×2 (11:15→21:03)
[2020-10-29] MEDS: POLYETHYLENE GLYCOL 3350 119 GM BTL PO SCH (11:16)
[2020-10-29] MEDS: ZINC OXIDE 20% TOPICAL OINTMENT 30 GM TUBE TP SCH ×2 (12:52→21:02)
[2020-10-29] MEDS: AMINO ACIDS 4.25%/D5W 1,000 ML IV SCH ×2 (17:04)
[2020-10-30] MEDS: MIDODRINE HCL 5 MG TABLET PO SCH ×3 (05:28→21:03)
[2020-10-30 07:57] LABS: BASO % 0.4 % (0-2.0); HEMATOCRIT 21.6 % (32.4-45.2); HEMOGLOBIN 7.2 GM/dL (10.7-15.3); LYMPH % 40.6 % (8-40); MCH 35.5 pg (25.7-33.7); MCHC 33.3 g/dl (32.0-36.0); MEAN CELL VOLUME 106.6 fl (80-96); MEAN PLT VOLUME 8.3 fl (7.5-11.1); MONO % 9.5 % (3.8-10.2); NEUT % 46.5 % (42.8-82.8); PLATELET COUNT 141 10^3/uL (134-434); RBC 2.03 M/mm3 (3.60-5.2); RDW 20.8 % (11.6-15.6); WHITE BLOOD COUNT 3.8 K/mm3 (4.0-10.0)
[2020-10-30 08:15] LABS: CHLORIDE 115 mmol/L (98-107); SODIUM 142 mmol/L (136-145)
[2020-10-30 08:18] LABS: CALCIUM 7.9 mg/dL (8.5-10.1)
[2020-10-30 08:19] LABS: ALBUMIN 1.4 g/dl (3.4-5.0); ANION GAP 6 MMOL/L (8-16); BLOOD UREA NITROGEN 5.8 mg/dL (7-18); CO2 21 mmol/L (21-32); GLUCOSE,RANDOM 78 mg/dL (74-106); MAGNESIUM 1.9 mg/dL (1.8-2.4)
[2020-10-30 08:22] LABS: SGOT/AST 23 U/L (15-37); SGPT/ALT 16 U/L (13-61)
[2020-10-30 08:23] LABS: BILIRUBIN,TOTAL 0.3 mg/dL (0.2-1); TOT PROT 4.8 g/dl (6.4-8.2)
[2020-10-30 08:25] LABS: ALK PHOS 80 U/L (45-117)
[2020-10-30 08:31] LABS: CREATININE < 0.2 mg/dL (0.55-1.3)
[2020-10-30] MEDS ORDERED: PT OWN MED DRAWER 7, Y5N ONE ×5 (09:49→17:23)
[2020-10-30] MEDS: LEVOTHYROXINE SODIUM 100 MCG VIAL IVPUSH SCH (10:00)
[2020-10-30] MEDS: POLYETHYLENE GLYCOL 3350 119 GM BTL PO SCH (10:00)
[2020-10-30] MEDS: levETIRAcetam 500 MG/5 ML INJECTION VIAL IVPB SCH ×2 (10:01→21:01)
[2020-10-30] MEDS: QUEtiapine FUMARATE 100 MG TABLET (FP) PO SCH ×2 (10:02→21:03)
[2020-10-30] MEDS: CLOTRIMAZOLE 1% CREAM 15 GM TUBE TP SCH ×2 (10:02→21:04)
[2020-10-30] MEDS: NYSTATIN 100000 UNIT/GM TOPICAL OINTMENT 15 GM TUBE TP SCH ×2 (10:02→21:04)
[2020-10-30] MEDS: MULTIVIT-MINERALS ORAL LIQUID PO SCH (10:02)
[2020-10-30] MEDS: ASCORBIC ACID 500 MG TABLET (FP) PO SCH ×2 (10:02→21:03)
[2020-10-30] MEDS: LACTOBACILLUS ACIDOPHILUS 1 TABLET PO SCH (10:02)
[2020-10-30] MEDS: ZINC OXIDE 20% TOPICAL OINTMENT 30 GM TUBE TP SCH ×2 (10:03→21:04)
[2020-10-30] MEDS: COLLAGENASE CLOSTRIDIUM HIST. 30 GRAMS TUBE TP SCH (10:03)
[2020-10-30] MEDS: VALPROATE SODIUM INJECTION 1,000 MG in DEXTROSE 5%-WATER - 100 ML IVPB SCH ×2 (12:05→21:04)
[2020-10-30] MEDS ORDERED: POTASSIUM CHLORIDE ORAL LIQUID 20 MEQ/15 ML PO ONE (12:35)
[2020-10-30] MEDS: AMINO ACIDS 4.25%/D5W 1,000 ML IV SCH (13:27)
[2020-10-30] MEDS: ACETAMINOPHEN 325 MG TABLET (FP) PO PRN (21:03)
[2020-10-30 23:37] VITALS: BMI 22.8
[2020-10-31] MEDS: MIDODRINE HCL 5 MG TABLET PO SCH ×3 (05:36→21:33)
[2020-10-31] MEDS: LEVOTHYROXINE SODIUM 100 MCG VIAL IVPUSH SCH (10:49)
[2020-10-31] MEDS: MULTIVIT-MINERALS ORAL LIQUID PO SCH (10:51)
[2020-10-31] MEDS: LACTOBACILLUS ACIDOPHILUS 1 TABLET PO SCH (10:54)
[2020-10-31] MEDS: ASCORBIC ACID 500 MG TABLET (FP) PO SCH ×2 (10:54→21:32)
[2020-10-31] MEDS: QUEtiapine FUMARATE 100 MG TABLET (FP) PO SCH ×2 (10:54→21:33)
[2020-10-31] MEDS: levETIRAcetam 500 MG/5 ML INJECTION VIAL IVPB SCH ×2 (10:54→22:32)
[2020-10-31] MEDS: COLLAGENASE CLOSTRIDIUM HIST. 30 GRAMS TUBE TP SCH (11:05)
[2020-10-31] MEDS: ZINC OXIDE 20% TOPICAL OINTMENT 30 GM TUBE TP SCH ×2 (11:05→21:33)
[2020-10-31] MEDS: POLYETHYLENE GLYCOL 3350 119 GM BTL PO SCH (11:06)
[2020-10-31] MEDS: CLOTRIMAZOLE 1% CREAM 15 GM TUBE TP SCH ×2 (11:06→21:33)
[2020-10-31] MEDS: NYSTATIN 100000 UNIT/GM TOPICAL OINTMENT 15 GM TUBE TP SCH ×2 (11:07→21:33)
[2020-10-31] MEDS ORDERED: PT OWN MED DRAWER 7, Y5N ONE ×2 (11:35→21:01)
[2020-10-31] MEDS: VALPROATE SODIUM INJECTION 1,000 MG in DEXTROSE 5%-WATER - 100 ML IVPB SCH ×2 (11:41→21:26)
[2020-10-31] MEDS: ACETAMINOPHEN 325 MG TABLET (FP) PO PRN (20:19)
[2020-11-01] MEDS: MIDODRINE HCL 5 MG TABLET PO SCH ×3 (05:14→21:50)
[2020-11-01] MEDS ORDERED: PT OWN MED DRAWER 7, Y5N ONE ×2 (10:33→21:59)
[2020-11-01] MEDS: QUEtiapine FUMARATE 100 MG TABLET (FP) PO SCH ×2 (10:38→21:50)
[2020-11-01] MEDS: ASCORBIC ACID 500 MG TABLET (FP) PO SCH ×2 (10:38→21:50)
[2020-11-01] MEDS: MULTIVIT-MINERALS ORAL LIQUID PO SCH (10:39)
[2020-11-01] MEDS: levETIRAcetam 500 MG/5 ML INJECTION VIAL IVPB SCH ×2 (10:39→21:50)
[2020-11-01] MEDS: LACTOBACILLUS ACIDOPHILUS 1 TABLET PO SCH (10:39)
[2020-11-01] MEDS: NYSTATIN 100000 UNIT/GM TOPICAL OINTMENT 15 GM TUBE TP SCH ×2 (10:40→21:50)
[2020-11-01] MEDS: POLYETHYLENE GLYCOL 3350 119 GM BTL PO SCH (10:41)
[2020-11-01] MEDS: LEVOTHYROXINE SODIUM 100 MCG VIAL IVPUSH SCH (10:42)
[2020-11-01] MEDS: COLLAGENASE CLOSTRIDIUM HIST. 30 GRAMS TUBE TP SCH (10:42)
[2020-11-01] MEDS: CLOTRIMAZOLE 1% CREAM 15 GM TUBE TP SCH ×2 (10:42→21:50)
[2020-11-01] MEDS: ZINC OXIDE 20% TOPICAL OINTMENT 30 GM TUBE TP SCH ×2 (10:43→21:51)
[2020-11-01] MEDS: VALPROATE SODIUM INJECTION 1,000 MG in DEXTROSE 5%-WATER - 100 ML IVPB SCH ×2 (11:11→21:59)
[2020-11-01 13:11] LABS: BASO % 0.5 % (0-2.0); EOS % 1.9 % (0-4.5); HEMATOCRIT 24.9 % (32.4-45.2); HEMOGLOBIN 8.3 GM/dL (10.7-15.3); LYMPH % 43.2 % (8-40); MCH 35.4 pg (25.7-33.7); MCHC 33.2 g/dl (32.0-36.0); MEAN CELL VOLUME 106.6 fl (80-96); MEAN PLT VOLUME 8.3 fl (7.5-11.1); MONO % 11.3 % (3.8-10.2); NEUT % 43.1 % (42.8-82.8); PLATELET COUNT 168 10^3/uL (134-434); RBC 2.33 M/mm3 (3.60-5.2); RDW 19.8 % (11.6-15.6); WHITE BLOOD COUNT 3.9 K/mm3 (4.0-10.0)
[2020-11-01 13:29] LABS: ALBUMIN 1.5 g/dl (3.4-5.0); BLOOD UREA NITROGEN 4.3 mg/dL (7-18); CALCIUM 7.8 mg/dL (8.5-10.1)
[2020-11-01 13:32] LABS: CREATININE 0.2 mg/dL (0.55-1.3)
[2020-11-01 13:34] LABS: BILIRUBIN,TOTAL 0.2 mg/dL (0.2-1); TOT PROT 5.6 g/dl (6.4-8.2)
[2020-11-01 14:31] LABS: ANISOCYTOSIS 1+; MACROCYTOSIS 0; PLATELET ESTIMATE NORMAL
[2020-11-01] MEDS: ACETAMINOPHEN 325 MG TABLET (FP) PO PRN (17:33)
[2020-11-01] MEDS ORDERED: FAMOTIDINE 20 MG/50 ML IVPB 20 MG/50 ML MG IVPB ONE (20:47)
[2020-11-02] MEDS: MIDODRINE HCL 5 MG TABLET PO SCH ×2 (05:30→14:43)
[2020-11-02] MEDS: QUEtiapine FUMARATE 100 MG TABLET (FP) PO SCH (10:03)
[2020-11-02] MEDS: ASCORBIC ACID 500 MG TABLET (FP) PO SCH (10:03)
[2020-11-02] MEDS: LACTOBACILLUS ACIDOPHILUS 1 TABLET PO SCH (10:04)
[2020-11-02] MEDS: levETIRAcetam 500 MG/5 ML INJECTION VIAL IVPB SCH (10:04)
[2020-11-02] MEDS ORDERED: PT OWN MED DRAWER 7, Y5N ONE (10:05)
[2020-11-02] MEDS: LEVOTHYROXINE SODIUM 100 MCG VIAL IVPUSH SCH (10:06)
[2020-11-02] MEDS: MULTIVIT-MINERALS ORAL LIQUID PO SCH (10:06)
[2020-11-02] MEDS: NYSTATIN 100000 UNIT/GM TOPICAL OINTMENT 15 GM TUBE TP SCH (10:08)
[2020-11-02] MEDS: ZINC OXIDE 20% TOPICAL OINTMENT 30 GM TUBE TP SCH (10:08)
[2020-11-02] MEDS: COLLAGENASE CLOSTRIDIUM HIST. 30 GRAMS TUBE TP SCH (10:08)
[2020-11-02] MEDS: VALPROATE SODIUM INJECTION 1,000 MG in DEXTROSE 5%-WATER - 100 ML IVPB SCH (10:11)
[2020-11-02] MEDS: POLYETHYLENE GLYCOL 3350 119 GM BTL PO SCH (10:24)
[2020-11-02 10:54] VITALS: TEMP 98.1
[2020-11-02] MEDS: CLOTRIMAZOLE 1% CREAM 15 GM TUBE TP SCH (11:06)
[2020-11-02 12:34] VITALS: PULSE 103
[2020-11-02 18:30] VITALS: BP 99/56
== END 2020-11-02 19:15 | disposition home or self-care (01) | DRG 248 ==
LOC: JER 12:52 → JERBED 16:43 → J4W 20:14 → JICU 10-12 17:52 → J8W 10-22 15:08
PROVIDERS: ADMIT Internal Medicine; ATTEND Internal Medicine
PROC: 02H633Z Insertion of Infusion Device into Right Atrium, Percutaneous Approach (ICD-10-PCS; principal; 2020-10-12)
PROC: B548ZZA Ultrasonography of Superior Vena Cava, Guidance (ICD-10-PCS; 2020-10-12)
PROC: 0D9670Z Drainage of Stomach with Drainage Device, Via Natural or Artificial Opening (ICD-10-PCS; 2020-10-25)
DX: A04.72 Enterocolitis due to Clostridium difficile, not specified as recurrent (principal); D65 Disseminated intravascular coagulation [defibrination syndrome]; R65.21 Severe sepsis with septic shock; A41.9 Sepsis, unspecified organism; G93.41 Metabolic encephalopathy; R64 Cachexia; I50.20 Unspecified systolic (congestive) heart failure; G82.20 Paraplegia, unspecified; D68.9 Coagulation defect, unspecified; E87.2 Acidosis; D61.818 Other pancytopenia; E88.09 Other disorders of plasma-protein metabolism, not elsewhere classified; F25.9 Schizoaffective disorder, unspecified; E87.6 Hypokalemia; F31.9 Bipolar disorder, unspecified; G40.909 Epilepsy, unspecified, not intractable, without status epilepticus; G90.4 Autonomic dysreflexia; N39.0 Urinary tract infection, site not specified; D64.9 Anemia, unspecified; R79.89 Other specified abnormal findings of blood chemistry; K21.9 Gastro-esophageal reflux disease without esophagitis; E46 Unspecified protein-calorie malnutrition; Z74.01 Bed confinement status; I48.0 Paroxysmal atrial fibrillation; L89.529 Pressure ulcer of left ankle, unspecified stage; L89.519 Pressure ulcer of right ankle, unspecified stage; L89.899 Pressure ulcer of other site, unspecified stage; K56.7 Ileus, unspecified; Z68.22 Body mass index [BMI] 22.0-22.9, adult
CPT/HCPCS: 36415; 36430; 36511; 70450-TC; 71045-TC-FY; 71250-TC; 74018-TC-FY; 74019-TC-FY; 74176-TC; 76705-TC; 80048; 80053; 80164; 81003; 82150; 82550; 82728; 82803; 82962; 82977; 83516; 83540; 83550; 83605; 83615; 83690; 83735; 84100; 84439; 84443; 84484; 84703; 85025; 85045; 85379; 85384; 85610; 85730; 86140; 86704; 86706; 86707; 86708; 86709; 86803; 86850; 86900; 86901; 86922; 87040; 87077; 87086; 87186; 87324; 87340; 87449; 93005; 93010; 94660; 99285-25; C9803; P9034; P9038; P9047; P9058; U0003; U0005